=== PATIENT | male | born 1945 | race Caucasian/White ===

== ENCOUNTER 2017-07-26 08:13 | Emergency (ER) | payer BC ==
[2017-07-26 08:30] VITALS: BP 137/83
--- NOTE | 2017-07-26 09:10 | RAD ---
HISTORY: Fall, right-sided pain COMPARISONS: None VIEWS: 6, Frontal view of the chest with frontal and oblique views of the right hemithorax. FINDINGS: There is no displaced rib fracture or pneumothorax. The visualized lungs are clear. There is a bone island of the right fourth rib. IMPRESSION: NO DISPLACED RIB FRACTURE OR PNEUMOTHORAX.
--- NOTE | 2017-07-26 09:35 | UC ---
Truncal Trauma HPI - HPI Summary HPI Summary: 72 yo WM c/o right lower irb pains s/p fall onto edge of bathtub yesterday and now hurts to lay down. Denies dizziness or SOB - History Of Current Complaint Chief Complaint: UCBackPain Stated Complaint: BACK INJURY Time Seen by Provider: 07/26/17 08:51 Onset/Duration: Sudden Onset Severity Currently: Moderate Pain Intensity: 7 Mechanism Of Injury: Blunt Trauma Aggravating Factor(s): Movement, Deep Breathing Alleviating factor(s): Nothing - Allergies/Home Medications Allergies/Adverse Reactions: Allergies Allergy/AdvReac Type Severity Reaction Status Date / Time No Known Allergies Allergy Verified 07/26/17 08:23 Home Medications: Home Medications Aspirin [Aspirin Childrens 81 MG] 81 mg PO DAILY 07/26/17 [History Confirmed 09/07] Atorvastatin* [Lipitor 10 MG*] 10 mg PO DAILY 07/26/17 [History Confirmed ] LORazepam TAB(*) [Ativan 1 MG TAB (*)] 0.1 mg PO DAILY 07/26/17 [History Confirmed 07/26/17] PMH/Surg Hx/FS Hx/Imm Hx Previously Healthy: Yes - Surgical History Surgical History: Yes Surgery Procedure, Year, and Place: t/a - Social History Alcohol Use: Daily Substance Use Type: None Smoking Status (MU): Never Smoked Tobacco Review of Systems Constitutional: Negative Skin: Negative Eyes: Negative ENT: Negative Respiratory: Negative Cardiovascular: Negative Gastrointestinal: Negative Genitourinary: Negative Motor: Negative Neurovascular: Negative Musculoskeletal: Negative, Other: - right lower rib and intercostal pains Neurological: Negative Psychological: Negative All Other Systems Reviewed And Are Negative: Yes Physical Exam Triage Information Reviewed: Yes Vital Signs: Initial Vital Signs Temp 36.6 C 07/26/17 08:25 Pulse 93 07/26/17 08:25 Resp 17 07/26/17 08:25 BP 137/83 07/26/17 08:25 Pulse Ox 98 07/26/17 08:25 Vital Signs Reviewed: Yes Eye Exam: Normal ENT Exam: Normal Dental Exam: Normal Neck exam: Normal Neck: Positive: 1 Respiratory Exam: Normal Cardiovascular Exam: Normal Abdominal Exam: Normal Musculoskeletal: Positive: Other: - TTP over right lower rib region ribs8-11 Neurological Exam: Normal Psychological Exam: Normal Skin Exam: Normal Truncal Trauma Course/Dx - Course Course Of Treatment: XR neg for displaced rib fx or PTX - Differential Dx/Diagnosis Provider Diagnoses: RIb and chestwall contusion. mildly elevated BP in acute pain Discharge - Sign-Out/Discharge Documenting (check all that apply): Discharge - Discharge Plan Condition: Stable Disposition: HOME Prescriptions: Naproxen 500 mg PO BID 15 Days #30 tablet oxyCODONE/Acetamin 5/325 MG* [Percocet 5/325 TAB*] 1 tab PO Q6H PRN 5 Days #20 tab MDD 4 PRN Reason: Pain Patient Education Materials: Rib Contusion (ED) Referrals: Shirley Euceda MD [Primary Care Provider] - Additional Instructions: manual splinting with cough and take mediation as directed for pain - Billing Disposition and Condition Condition: STABLE Disposition: HOME
== END 2017-07-26 09:30 | disposition home or self-care (01) ==
LOC: UCEAST 08:13
DX: S20.211A Contusion of right front wall of thorax, initial encounter (principal); W18.09XA Striking against other object with subsequent fall, initial encounter; Y93.9 Activity, unspecified; Y92.002 Bathroom of unspecified non-institutional (private) residence as the place of occurrence of the external cause; R03.0 Elevated blood-pressure reading, without diagnosis of hypertension; Z79.82 Long term (current) use of aspirin
CPT/HCPCS: 99202; G0463

== ENCOUNTER 2019-01-31 04:01 | Emergency (ER) | payer BC ==
--- OUTSIDE RECORDS SUMMARY | 2019-01-31 04:13 | XMS REPORT | Summary of Care ---
:1945 Author Organization [facility] Address [address] [place] [address] Care Team Providers Name Role Phone Shirley Euceda Primary Care Provider Reason for Referral Refer to Department Only (Routine) Status Reason Specialty Diagnoses / Referred By Referred To Procedures Contact Contact Authorized Dental Diagnoses TMJ disease Kena Baker, RAMIREZ [address] [place] [address] Reason for Visit Reason Comments Jaw Pain jaw not closing correctly, hurts to open Jaw Noises grinding on right side Flu Vaccine Encounter Details Date Type Department Care Team Description 01/21/2019 Office Visit [place] Kena Arambula Back strain, initial encounter (Primary Dx); 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 UNITS Oral Tab Triamcinolone 1 Appl by Apply 15 g 1 08/30/2017 Active Acetonide 0.5 % Apply externally route externally Cream TWICE DAILY. Apply twice/ day trazodone (DESYREL) 50 TAKE 1/2 TO 1 & 90 Tab 1 04/01/2018 Active MG Oral 1/2 TABLETS BY TabIndications: MOUTH EVERY Chronic insomnia BEDTIME atorvastatin (LIPITOR) Take 1 Tab by 90 Tab 3 10/15/2018 Active 10 MG Oral mouth DAILY. TabIndications: Lipid disorder ketoconazole (NIZORAL) 1 Appl by Topical 120 mL 0 10/23/2018 Active 2 % Apply externally route ONE TIME. ShampooIndications: Over skin at night Tinea corporis and wash off in am Lidocaine-Menthol 4-5 1 Patch by Apply 30 Patch 0 01/21/2019 Active % Apply externally externally route PatchIndications: Back DAILY NEEDED strain, initial (for back pain). encounter documented as of this encounter (statuses as of 01/21/2019) Active Problems Problem Noted Date Platelet disorder 10/15/2018 Primary hyperparathyroidism 03/13/2017 Overview: dxa 02/06 - Mild osteopenia Urine calcium - 365 Hypercalcemia 01/17/2017 Overview: Elevated intact PTH Lipid disorder 05/17/2016 Overview: framingham risk - 30.9 ( 05/09) Chronic insomnia 04/26/2010 Overview: Ativan and ambien at bedtime as needed [id number] Personal history of colonic polyps 10/09/2007 Overview: Last colonoscopy, 05/12/2004, 2 adenomas, benign. Next recommended 3(three) years. documented as of this encounter (statuses as of 01/21/2019) Resolved Problems Problem Noted Date Resolved Date Syncope and collapse 10/09/2007 11/09/2009 Overview: Whenever patient feels pain. Morbid obesity 10/09/2007 10/09/2007 Routine general medical examination at a health care facility 09/24/2006 documented as of this encounter (statuses as of 01/21/2019) Immunizations Name Administration Dates Next Due Influenza Vaccine 65 Yrs + 01/21/2019 Influenza Vaccine High Dose 03/01/2018, 01/17/2017, 06/09/2015 Pneumococcal Conjugate(13 Valent) 03/01/2018 documented as of this encounter Social History Tobacco Use Types Packs/Day Years Used Date Never Smoker Smokeless Tobacco: Never Used Alcohol Use Drinks/Week oz/Week Comments Yes 25 Standard drinks or equivalent 25.0 Sex Assigned at Date Recorded Not on file Job Start Date Occupation Industry Not on file Not on file Not on file Travel History Travel Start Travel End No recent travel history available. documented as of this encounter Last Filed Vital Signs Vital Sign Reading Time Taken Comments Blood Pressure 140/72 01/21/2019 4:39 PM EDT Pulse 70 01/21/2019 4:39 PM EDT Temperature 36.7 01/21/2019 4:39 PM EDT C (98 F) Respiratory Rate - - Oxygen Saturation 98% 01/21/2019 4:39 PM EDT Inhaled Oxygen Concentration - - Weight 96.2 kg (212 lb) 01/21/2019 4:39 PM EDT Height 185.4 cm (6' 1") 01/21/2019 4:39 PM EDT Body Mass Index 27.97 01/21/2019 4:39 PM EDT documented in this encounter Patient Instructions Patient InstructionsKena Baker NP - 01/21/2019 4:20 PM EDT For your Back - ? You can take ibuprofen 600 mg every 8 hours for the pain - please take this medication with food. ? Biofreeze or Icy/Hot to the area as needed ? Lidocaine patch to painful area - use for 12 hours on, then off for 12 hours. ? Practice good body ergonomics while doing house work, sitting at your desk, heavy lifting, etc ? Heating pads If conservative treatment does not work after 4 weeks, return to be seen again, I will put in referral for you to do physical therapy. For your Jaw - -Schedule xray to check for subluxation or dislocation -Make an appointment with dentist -Soft foods for now -Tylenol and motrin for the pain -Avoid exaggerated jaw movements, such as yawning -Avoid chewing gum. -Use a bite guard at night. You may feel under the weather after the influenza vaccine - you can take tylenol and motrin over the counter for this. This is an expected immune response to the vaccine. . Lower Back Exercises WHAT YOU NEED TO KNOW: Lower back exercises help heal and strengthen your back muscles to prevent another injury. Ask your healthcare provider if you need to see a physical therapist for more advanced exercises. DISCHARGE INSTRUCTIONS: Return to the emergency department if: You have severe pain that prevents you from moving. Contact your healthcare provider if: Your pain becomes worse. You have new pain. You have questions or concerns about your condition or care. Do lower back exercises safely: Do the exercises on a mat or firm surface (not on a bed) to support your spine and prevent lowback pain. Move slowly and smoothly. Avoid fast or jerky motions. Breathe normally. Do not hold your breath. Stop if you feel pain. It is normal to feel some discomfort at first. Regular exercise will help decrease your discomfort over time. Lower back exercises: Your healthcare provider may recommend that you do back exercises 10 to 30 minutes each day. He may also recommend that you do exercises 1 to 3 times each day. Ask your healthcare provider which exercises are best for you and how often to do them. Ankle pumps: Lie on your back. Move your foot up (with your toes pointing toward your head). Then, move your foot down (with your toes pointing away from you). Repeat this exercise 10 times on each side. Heel slides: Lie on your back. Slowly bend one leg and then straighten it. Next, bend the other leg and then straighten it. Repeat 10 times on each side. Pelvic tilt: Lie on your back with your knees bent and feet flat on the floor. Place your armsin a relaxed position beside your body. Tighten the muscles of your abdomen and flatten your back against the floor. Hold for 5 seconds. Repeat 5 times. Back stretch: Lie on your back with your hands behind your head. Bend your knees and turn the lower half of your body to one side. Hold this position for 10 seconds. Repeat 3 times on each side. Straight leg raises: Lie on your back with one leg straight. Bend the other knee. Tighten yourabdomen and then slowly lift the straight leg up about 6 to 12 inches off the floor. Hold for 1 to 5seconds. Lower your leg slowly. Repeat 10 times on each leg. Kchu-ur-vjvuu: Lie on your back with your knees bent and feet flat on the floor. Pull one of your knees toward your chest and hold it there for 5 seconds. Return your leg to the starting position. Lift the other knee toward your chest and hold for 5 seconds. Do this 5 times on each side. Cat and camel: Place your hands and knees on the floor. Arch your back upward toward the ceiling and lower your head. Round out your spine as much as you can. Hold for 5 seconds. Lift your head upward and push your chest downward toward the floor. Hold for 5 seconds. Do 3 sets or as directed. Wall squats: Stand with your back against a wall. Tighten the muscles of your abdomen. Slowly lower your body until your knees are bent at a 45 degree angle. Hold this position for 5 seconds. Slowly move back up to a standing position. Repeat 10 times. Curl up: Lie on your back with your knees bent and feet flat on the floor. Place your hands, palms down, underneath the curve in your lower back. Next, with your elbows on the floor, lift your shoulders and chest 2 to 3 inches. Keep your head in line with your shoulders. Hold this position for 5seconds. When you can do this exercise without pain for 10 to 15 seconds, you may add a rotation. While your shoulders and chest are lifted off the ground, turn slightly to the left and hold. Repeat onthe other side. Bird dog: Place your hands and knees on the floor. Keep your wrists directly below your shoulders and your knees directly below your hips. Pull your belly button in toward your spine. Do not flatten or arch your back. Tighten your abdominal muscles. Raise one arm straight out so that it is aligned with your head. Next, raise the leg opposite your arm. Hold this position for 15 seconds. Lower your arm and leg slowly and change sides. Do 5 sets. 2016 [employer]. Information is for End User's use only and may not be sold, redistributed or otherwise used for commercial purposes. All illustrations and images included in CareNotes are the copyrighted property of [employer]. or [employer]. The above information is an medicaid collection specialist only. It is not intended as medical advice for individual conditions or treatments. Talk to your doctor, nurse or pharmacist before following any medical regimen to see if it is safe and effective for you. documented in this encounter Progress Notes Kena Baker NP - 01/21/2019 4:20 PM EDT PATIENT: Dinesh Olson : 1945 DATE OF SERVICE: 01/21/2019 CHIEF COMPLAINT: Chief Complaint Patient presents with Jaw Pain jaw not closing correctly, hurts to open Jaw Noises grinding on right side Flu Vaccine Subjective HISTORY OF PRESENT ILLNESS: Dinesh Olson is a 73-y.o. male. HPI Back pain - inflammation feeling on lower right back for a few days. Now left flank pain since 2-3 days. He has been doing a lot of travel in his car, traveling to [place] and back. A lot on his mind he is tense. Pain is dull, there all the time, worse when doing certain movements, worse when getting up the AM. Worse when bending, side to side. No numbness or tingling, no radiation, No problems with urinating, no hematuria, no abd pain. +Loose stools. Jaw - 2-3 weeks, feels like teeth are tense when waking up in the am, when opening mouth he gets a noise in the right side of the jaw, painful to open wide. Now, since last week or so, when jaw closesteeth on right side feel like they are closing into the wrong spot, not able to put top and bottom teeth together completely. Feels like maybe dislocated. No numbness/tingling, no radiation. Past Medical History: Diagnosis Date Hemorrhoid Personal history of colonic polyps 2010 04 tubular adenoma ---next 2016 Syncope and collapse 10/09/2007 Whenever patient feels pain. Family History Problem Relation Age of Onset Heart Father CAD, CHF Cancer Father Leukemia Heart Mother Pacemaker Breast Cancer Mother Colon Cancer Paternal Grandmother Heart Paternal Grandfather Diabetes Sister Alcohol/Drug Sister Obesity Sister Current Outpatient Medications Medication Sig atorvastatin (LIPITOR) 10 MG Oral Tab Take 1 Tab by mouth DAILY. ketoconazole (NIZORAL) 2 % Apply externally Shampoo 1 Appl by Topical route ONE TIME. Over skin at night and wash off in am Lidocaine-Menthol 4-5 % Apply externally Patch 1 Patch by Apply externally route DAILY NEEDED (for back pain). trazodone (DESYREL) 50 MG Oral Tab TAKE 1/2 TO 1 & 1/2 TABLETS BY MOUTH EVERY BEDTIME Triamcinolone Acetonide 0.5 % Apply externally Cream 1 Appl by Apply externally route TWICE DAILY. Apply twice/ day Vitamin D, Cholecalciferol, 1000 UNITS Oral Tab Take by mouth DAILY. No current facility-administered medications for this visit. No Known Allergies Social History Socioeconomic History Marital status: Spouse name: Not on file Number of children: Not on file Years of education: Not on file Highest education level: Not on file Occupational History Not on file Social Needs Financial resource strain: Not on file Food insecurity: Worry: Not on file Inability: Not on file Transportation needs: Medical: Not on file Non-medical: Not on file Tobacco Use Smoking status: Never Smoker Smokeless tobacco: Never Used Substance and Sexual Activity Alcohol use: Yes Alcohol/week: 25.0 standard drinks Types: 25 Standard drinks or equivalent per week Drug use: No Sexual activity: Yes Partners: Female Lifestyle Physical activity: Days per week: Not on file Minutes per session: Not on file Stress: Not on file Relationships Social connections: Talks on phone: Not on file Gets together: Not on file Attends orthodox service: Not on file Active member of club or organization: Not on file Attends meetings of clubs or organizations: Not on file Relationship status: Not on file Intimate partner violence: Fear of current or ex partner: Not on file Emotionally abused: Not on file Physically abused: Not on file Forced sexual activity: Not on file Other Topics Concern Back Care Not Asked Bike Helmet Not Asked Blood Transfusions No Caffeine Concern Not Asked Exercise Yes Comment: biking/garden work. some swimming. Hobby Hazards No International Travel Not Asked Service Not Asked Occupational Exposure Not Asked Seat Belt Not Asked Self-Exams Not Asked Sleep Concern Not Asked Special Diet Not Asked Stress Concern Not Asked Weight Concern Not Asked Social History Narrative . 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 Routine exercise: gardening/biking---no sig in winter. Pets: 2 birds---parakeets, 1 guniea pig. REVIEW OF SYSTEMS: Review of Systems Constitutional: Negative for chills, fever and malaise/fatigue. HENT: Negative for congestion, ear pain, sinus pain and sore throat. Right side jaw pain and clicking. + PND Respiratory: Negative for cough and shortness of breath. Cardiovascular: Negative for chest pain and palpitations. Gastrointestinal: Positive for diarrhea (loose stool). Negative for abdominal pain, constipation, nausea and vomiting. Genitourinary: Positive for flank pain (left). Negative for dysuria, frequency, hematuria and urgency. Musculoskeletal: Positive for back pain (left and right). Negative for neck pain. Neurological: Negative for tingling, sensory change and weakness. Objective PHYSICAL EXAM: VITALS: BP 140/72 (BP Location: Left arm, Patient Position: Sitting) | Pulse 70 | Temp 98 F (36.7 C) | Ht 6' 1" (1.854 m) | Wt 212 lb (96.2 kg) | SpO2 98% | BMI 27.97 kg/m Body massindex is 27.97 kg/m. Physical Exam Vitals signs and nursing note reviewed. Constitutional: General: He is not in acute distress. Appearance: Normal appearance. HENT: Head: Normocephalic and atraumatic. Jaw: Pain on movement (no clicking or crepitus on jaw movement) present. No trismus, tenderness, swelling or malocclusion. Right Ear: Hearing, tympanic membrane, ear canal and external ear normal. Left Ear: Hearing, tympanic membrane, ear canal and external ear normal. Mouth/Throat: Lips: [place]. Mouth: Mucous membranes are moist. Pharynx: Oropharynx is clear. Uvula midline. Tonsils: Swellin+ on the right. 1+ on the left. Neck: Musculoskeletal: Normal range of motion and neck supple. No spinous process tenderness or muscular tenderness. Vascular: No carotid bruit. Cardiovascular: Rate and Rhythm: Normal rate and regular rhythm. Heart sounds: Normal heart sounds. No murmur. No friction rub. No gallop. Pulmonary: Effort: Pulmonary effort is normal. No respiratory distress. Breath sounds: Normal breath sounds and air entry. Musculoskeletal: Right hip: Normal. Left hip: Normal. Cervical back: He exhibits normal range of motion, no tenderness, no bony tenderness, no pain andno spasm. Thoracic back: He exhibits normal range of motion, no tenderness, no bony tenderness, no pain andno spasm. Lumbar back: He exhibits normal range of motion, no tenderness, no bony tenderness, no pain and no spasm. Neurological: Mental Status: He is alert. Sensory: Sensation is intact. Motor: No weakness. Psychiatric: Behavior: Behavior is cooperative. ASSESSMENT / IMPRESSION: ICD-9-CM ICD-10-CM 1. 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 Flu vaccine need V04.81 Z23 ADMINISTRATION VACCINE SINGLE Plan 1. Back strain, initial encounter Conservative treatment to start: For your Back - ? You can take ibuprofen 600 mg every 8 hours for the pain - please take this medication with food. ? Biofreeze or Icy/Hot to the area as needed ? Lidocaine patch to painful area - use for 12 hours on, then off for 12 hours. ? Practice good body ergonomics while doing house work, sitting at your desk, heavy lifting, etc ? Heating pads If conservative treatment does not work after 4 weeks, return to be seen again, I will put in referral for you to do physical therapy. - Lidocaine-Menthol 4-5 % Apply externally Patch; 1 Patch by Apply externally route DAILY NEEDED (for back pain). Dispense: 30 Patch; Refill: 0 2. TMJ disease For your Jaw - -Schedule xray to check for subluxation or dislocation -Make an appointment with dentist -Soft foods for now -Tylenol and motrin for the pain -Avoid exaggerated jaw movements, such as yawning -Avoid chewing gum. -Use a bite guard at night. - XR MANDIBLE MIN 4 VIEWS (STANDARD); Future - REFER TO DENTAL; Future 3. Flu vaccine need - ADMINISTRATION VACCINE SINGLE Author: Kena Baker NP 01/21/2019 19:03 documented in this encounter Plan of Treatment Date Type Specialty Care Team Description 02/28/2019 Office Visit [place] [address] [place] [address] [phone] Name Type Priority Associated Diagnoses Order Schedule XR MANDIBLE MIN 4 VIEWS Imaging Routine TMJ disease Expected: (STANDARD) 01/21/2019, Expires: 01/21/2020 ADMINISTRATION VACCINE Procedures Routine Flu vaccine need Ordered: 2018 SINGLE Name Type Priority Associated Diagnoses Order Schedule REFER TO DENTAL Referral Routine TMJ disease Expected: 01/21/2019, Expires: 01/22/2020 Health Maintenance Due Date Last Done Comments ZOSTER IMMUNIZATION SERIES 1997 (1 of 2) INFLUENZA VACCINE (#1) 2018 03/01/2018, 01/17/2017, 06/09/2015 PNEUMOCOCCAL 65+YRS (2 of 2 03/01/2019 03/01/2018 - PPSV23) DEPRESSION SCREENING 10/16/2019 10/15/2018 FALL RISK ASSESSMENT 10/16/2019 10/15/2018, 10/15/2018 COLONOSCOPY SCREENING 06/28/2021 06/28/2016, 06/28/2010, 06/28/2010, Additional history exists LIPID DISORDER SCREENING 10/16/2023 10/15/2018, 02/25/2018, 08/15/2017, Additional history exists HEPATITIS C SCREENING Completed 12/31/2015 HPV IMMUNIZATION SERIES Aged Out No longer eligible based on patient's age to complete this topic MENINGOCOCCAL VACCINE IMM Aged Out No longer eligible based on patient's age to complete this topic documented as of this encounter Results Not on filedocumented in this encounter Visit Diagnoses Diagnosis Back strain, initial encounter - Primary TMJ disease Temporomandibular joint disorders, unspecified Flu vaccine need Need for prophylactic vaccination and inoculation against influenza documented in this encounter Guarantor Name Account Type Relation to Date of Phone Billing Patient Address Dinesh Olson Personal/Family 1945 [address] (Home) [phone] [place], [place] (Work) [id number] documented as of this encounter Advance Directives Type Date Recorded 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
[2019-01-31] MEDS ORDERED: Oxymetazoline 0.05% NASAL SPR* 15 ML BTL BOTH NARES ONE (05:01)
--- NOTE | 2019-01-31 05:04 | ED ---
Throat Pain/Nasal Congestion - HPI Summary HPI Summary: Pt is a 73 y/o M presenting to the ED for a chief complaint of epistaxis. Pt is actively bleeding from the left naris. Pt reports that he has been bleeding from the left naris since 03:30 on 01/31/19. Pt reports that epistaxis has occurred every morning for the last 3 days and occasionally in the evening. Pt was previously able to stop the bleeding with pressure. Pt has a cough with bloody sputum. Pt denies fever. Pt denies epistaxis in the past. Pt denies taking blood thinners. Pt denies a PMHx of HTN or DM. Pt denies any PSHx. Pt admits a FHMx of cardiac problems. - History of Current Complaint Chief Complaint: EDEpistaxis Time Seen by Provider: 01/31/19 04:54 Hx Obtained From: Patient Onset/Duration: Sudden Onset, Lasting Days, Still Present Severity: Moderate Associated Signs And Symptoms: Positive: Negative Cough: Sputum Appears - Bloody - Allergies/Home Medications Allergies/Adverse Reactions: Allergies Allergy/AdvReac Type Severity Reaction Status Date / Time No Known Allergies Allergy Verified 01/31/19 04:06 PMH/Surg Hx/FS Hx/Imm Hx Previously Healthy: Yes Endocrine/Hematology History: Denies: Hx Diabetes Cardiovascular History: Denies: Hx Hypertension Sensory History: Denies: Hx Legally Blind, Hx Deafness Opthamlomology History: Denies: Hx Legally Blind EENT History: Denies: Hx Deafness - Surgical History Surgical History: None Surgery Procedure, Year, and Place: t/a Infectious Disease History: No Infectious Disease History: Reports: Traveled Outside the [place] in Last 30 Days - Family History Known Family History: Positive: Cardiac Disease - Social History Alcohol Use: Daily Hx Substance Use: No Substance Use Type: Reports: None Hx Tobacco Use: No Smoking Status (MU): Never Smoked Tobacco Review of Systems Negative: Fever Positive: Epistaxis - Left naris Positive: Cough - With bloody sputum All Other Systems Reviewed And Are Negative: Yes Physical Exam - Summary Physical Exam Summary: Constitutional: Well-developed, Well-nourished, Alert. (-) Distressed Skin: Warm, Dry HENT: Normocephalic; Atraumatic. Bright red blood from left naris. Eyes: Conjunctiva normal Neck: Musculoskeletal ROM normal neck. (-) JVD, (-) Stridor, (-) Nuchal rigidity Cardio: Rhythm regular, rate normal, Heart sounds normal; Intact distal pulses; Radial pulses are 2+ and symmetric. (-) Murmur Pulmonary/Chest wall: Effort normal. (-) Respiratory distress, (-) Wheezes, (-) Rales Abd: Soft, (-) tenderness, (-) Distension, (-) Guarding, (-) Rebound Musculoskeletal: (-) Edema Lymph: (-) Cervical adenopathy Neuro: Alert, Oriented x3 Psych: Mood and affect Normal Triage Information Reviewed: Yes Vital Signs On Initial Exam: Initial Vitals Temp Pulse Resp BP Pulse Ox 97.6 F 82 16 167/100 96 01/31/19 04:03 01/31/19 04:03 01/31/19 04:03 01/31/19 04:03 01/31/19 04:03 Vital Signs Reviewed: Yes Procedures - Sedation Patient Received Moderate/Deep Sedation with Procedure: No Diagnostics - Vital Signs Vital Signs Temp Pulse Resp BP Pulse Ox 01/31/19 04:03 97.6 F 82 16 167/100 96 - Laboratory Result Diagrams: 01/31/19 05:31 Lab Statement: Any lab studies that have been ordered have been reviewed, and results considered in the medical decision making process. Re-Evaluation - Re-Evaluation 1st re-eval Re-Evaluation Time: 05:51 Change: Improved Comment: At 05:51, rhino rocket placed successfully. 2nd re-eval Re-Evaluation Time: 06:17 Change: Improved Comment: At 06:17, pt is improved. Pt will try drinking water before he goes. EENT Course/Dx - Course Course Of Treatment: 73 y/o male w L sided epistaxis intermittent for 3 days. - PE w brisk bleeding from L nare, tried afrin and pressure. CBC stable, INR normal. Placed rhino rocket in L nare, given augmentin. Will call ENT today for f/u. Return for fevers, worsening pain, continued bleeding. - Diagnoses Provider Diagnoses: Epistaxis Discharge ED - Sign-Out/Discharge Documenting (check all that apply): Patient Departure - Discharge - Discharge Plan Condition: Stable Disposition: HOME Prescriptions: Amoxicillin/Clavulanate TAB* [Augmentin TAB 875*] 875 mg PO BID 3 Days #6 tab Patient Education Materials: Nosebleed (ED) Referrals: Shirley Euceda MD [Primary Care Provider] - Additional Instructions: You were seen in the emergency department for a nose bleed. If any studies were not completed at the time of discharge you will be called with the relevant results. Please follow up with your primary care doctor in next 2-3 days and return to emergency department for worsening pain, passing out, fevers, or concerning symptoms. It was a pleasure taking care of you today. Follow up with ENT. Given them a call today as you need to have your packing removed in 2-3 days. - Billing Disposition and Condition Condition: STABLE Disposition: Home - Attestation Statements Document Initiated by [place]: Yes Documenting Scribe: Hayley Farris Provider For Whom Kenya is Documenting (Include Credential): Jony Valdes MD Scribe Attestation: Hayley Deleon scribed for Jony Valdes MD on 01/31/19 at 0637. Scribe Documentation Reviewed: Yes Provider Attestation: The documentation as recorded by the Hayley emerson accurately reflects the service I personally performed and the decisions made by , Jony Valdes MD Status of Scribe Document: Viewed
[2019-01-31 05:42] LABS: Hematocrit 48 % (42-52); Hemoglobin 16.7 g/dL (14.0-18.0); Mean Corpuscular HGB Conc 35 g/dL (31-36); Mean Corpuscular Hemoglobin 31 pg (27-31); Mean Corpuscular Volume 91 fL (80-94); Mean Platelet Volume 9.9 fL (7.4-10.4); Platelet Count 154 10^3/uL (150-450); Red Blood Count 5.32 10^6 /uL (4.18-5.48); Red Cell Distribution Width 13 % (10-15); White Blood Count 4.4 10^3/uL (3.5-10.8)
[2019-01-31] MEDS ORDERED: Amoxicillin/Clavulanate TAB* 875 MG PO ONE (05:44)
[2019-01-31 05:49] LABS: INR 0.95 (0.82-1.09)
[2019-01-31 06:52] VITALS: BP 155/100
== END 2019-01-31 06:35 | disposition home or self-care (01) ==
LOC: ED 04:01
DX: R04.0 Epistaxis (principal)
CPT/HCPCS: 36415; 85027; 85610; 99282; A9270-GY

== ENCOUNTER 2019-02-01 10:05 | Emergency (ER) | payer BC ==
[2019-02-01 10:16] VITALS: BP 142/84
--- NOTE | 2019-02-01 10:33 | ED ---
Throat Pain/Nasal Congestion - HPI Summary HPI Summary: Patient is a 73 y/o M presenting to [facility] for rhino-rocket removal and examination of his left nare. He states that he came to [facility] 01/31/19 around 0300 due to uncontrolled epistaxis of his left nare. He states that they were unable to cauterize the bleeding source due to the copious amount of blood. Provider placed rhino-rocket. He states that yesterday he had an exacerbation of his allergies and nose irritation. While coughing, he states that the rhino- rocket came out. He had no bleeding and placed the rhino-rocket back in. Patient presents to have the rhino-rocket removed and to have his nare examined for possible cauterization. Patient denies pain. He notes that he had multiple epistaxis episodes last week. Home medications and allergies are reviewed. - History of Current Complaint Chief Complaint: EDGeneral Time Seen by Provider: 02/01/19 10:23 Hx Obtained From: Patient Onset/Duration: Resolved Severity: Mild Associated Signs And Symptoms: Positive: Negative Cough: Other: - cough w/ allergies - Allergies/Home Medications Allergies/Adverse Reactions: Allergies Allergy/AdvReac Type Severity Reaction Status Date / Time No Known Allergies Allergy Verified 01/31/19 04:06 PMH/Surg Hx/FS Hx/Imm Hx Endocrine/Hematology History: Denies: Hx Diabetes Cardiovascular History: Denies: Hx Hypertension Sensory History: Denies: Hx Legally Blind, Hx Deafness Opthamlomology History: Denies: Hx Legally Blind - Surgical History Surgery Procedure, Year, and Place: t/a Infectious Disease History: No Infectious Disease History: Denies: Traveled Outside the US in Last 30 Days - Family History Known Family History: Positive: Cardiac Disease - Social History Alcohol Use: Daily Hx Substance Use: No Substance Use Type: Reports: None Hx Tobacco Use: No Smoking Status (MU): Never Smoked Tobacco Review of Systems All Other Systems Reviewed And Are Negative: Yes Physical Exam - Summary Physical Exam Summary: GENERAL NORMAL EXAM: VITAL SIGNS: Reviewed. GENERAL: Patient is a well-developed and nourished male who is lying comfortable in the stretcher. Patient is not in any acute respiratory distress. HEAD AND FACE: No signs of trauma. No ecchymosis, hematomas or skull depressions. No sinus tenderness. Rhino-rocket in left nostril that is intermediate out, no active bleeding. EYES: PERRLA, EOMI x 2, No injected conjunctiva, no nystagmus. EARS: Hearing grossly intact. Ear canals and tympanic membranes are within normal limits. MOUTH: Oropharynx within normal limits. NECK: Supple, trachea is midline, no adenopathy, no JVD, no carotid bruit, no c- spine tenderness, neck with full ROM. CHEST: Symmetric, no tenderness at palpation. LUNGS: Clear to auscultation bilaterally. No wheezing or crackles. CVS: Regular rate and rhythm, S1 and S2 present, no murmurs or gallops appreciated. ABDOMEN: Soft, non-tender. No signs of distention. No rebound, no guarding, and no masses palpated. Bowel sounds are normal. EXTREMITIES: FROM in all major joints, no edema, no cyanosis or clubbing. NEURO: Alert and oriented x 3. No acute neurological deficits. Speech is normal and follows commands. SKIN: Dry and warm. Triage Information Reviewed: Yes Vital Signs On Initial Exam: Initial Vitals Temp Pulse Resp BP Pulse Ox 97.3 F 75 16 142/84 96 02/01/19 10:14 02/01/19 10:14 02/01/19 10:14 02/01/19 10:14 02/01/19 10:14 Vital Signs Reviewed: Yes Procedures - Sedation Patient Received Moderate/Deep Sedation with Procedure: No Diagnostics - Vital Signs Vital Signs Temp Pulse Resp BP Pulse Ox 02/01/19 10:14 97.3 F 75 16 142/84 96 - Laboratory Lab Statement: Any lab studies that have been ordered have been reviewed, and results considered in the medical decision making process. EENT Course/Dx - Course Assessment/Plan: Patient is a 73-year-old male with a request to remove the Rhino Rocket from the left nostril. The Rhino Rocket is half way off. I deflated and removed the Rhino Rocket. The patient was not actively bleeding. The patient is feeling better. The patient was observed for a while in the ED and did not bleed. The patient will be discharged home with follow-up with ENT. I discussed all the findings and test results with the patient. Patient was instructed to return to the emergency room immediately if any of the symptoms return worsens. Plan of care was discussed with the patient and understands and agrees. All questions were answered at patient satisfaction. There were no further complaints or concerns. Lung exam before discharge: CTA B/ L. Good air exchange. No wheezing or crackles heard. CVS: S1 and S2 present. No murmurs appreciated. Patient is alert and oriented x 3. Patient is hemodynamically stable. Patient will be discharged home with follow up ENT in the next 2-3 days - Diagnoses Provider Diagnoses: Epistaxis Discharge ED - Sign-Out/Discharge Documenting (check all that apply): Patient Departure - discharge - Discharge Plan Condition: Stable Disposition: HOME Patient Education Materials: Nosebleed (ED) Referrals: Shirley Euceda MD [Primary Care Provider] - 3 Days Sourav Adler MD [Medical Doctor] - 3 Days Additional Instructions: PLEASE RETURN TO ED FOR ANY NEW OR WORSENING SYMPTOMS. PLEASE FOLLOW UP WITH ENT DOCTOR WITHIN 2-3 DAYS. - Billing Disposition and Condition Condition: STABLE Disposition: Home - Attestation Statements Document Initiated by [place]: Yes Documenting Scribe: MARGARITO SAUNDERS Provider For Whom [place] is Documenting (Include Credential): BASILIA GILMAN MD Scribe Attestation: MARGARITO Deleon scribed for BASILIA GILMAN MD on 02/01/19 at 2133. Scribe Documentation Reviewed: Yes Provider Attestation: The documentation as recorded by the MARGARITO emerson accurately reflects the service I personally performed and the decisions made by me, BASILIA GILMAN MD Status of Scribe Document: Viewed
--- OUTSIDE RECORDS SUMMARY | 2019-02-01 10:56 | XMS REPORT | Summary of Care ---
:1945 Author Organization [facility] Address [address] [place] [address] Care Team Providers Name Role Phone Shirley Euceda Primary Care Provider Reason for Visit Reason Comments [place] [facility] [place] at 7am, severe epitaxis during night, started having epitaxis on Sunday afternoon, 2 on sunday, 1 on sunday, 1 . Encounter Details Date Type Department Care Team Description 01/31/2019 Office Visit [place] Kemar Calixto MD [facility] [address] epistaxis (Primary Dx) [address] [place] [address] [place] [address] [phone] Allergies No Known Allergiesdocumented as of this encounter (statuses as of 01/31/2019) Medications Medication Sig Dispensed Refills Start Date End Date Status Vitamin D, Take by mouth 0 Active Cholecalciferol, DAILY. 1000 UNITS Oral Tab Triamcinolone 1 Appl by Apply 15 g 1 08/30/2017 Active Acetonide 0.5 % externally Apply externally route TWICE Cream DAILY. Apply twice/ day trazodone TAKE 1/2 TO 1 & 90 Tab 1 04/01/2018 Active (DESYREL) 50 MG 1/2 TABLETS BY Oral MOUTH EVERY TabIndications: BEDTIME Chronic insomnia atorvastatin Take 1 Tab by 90 Tab 3 10/15/2018 Active (LIPITOR) 10 MG mouth DAILY. Oral TabIndications: Lipid disorder ketoconazole 1 Appl by 120 mL 0 10/23/2018 Active (NIZORAL) 2 % Topical route Apply externally ONE TIME. Over ShampooIndications skin at night : Tinea corporis and wash off in am Lidocaine-Menthol 1 Patch by 30 Patch 0 01/21/2019 Active 4-5 % Apply Apply externally externally PatchIndications: route DAILY Back strain, NEEDED (for initial encounter back pain). 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 Next recommended 3(three) years. documented as of this encounter (statuses as of 01/31/2019) Resolved Problems Problem Noted Date Resolved Date Syncope and collapse 10/09/2007 11/09/2009 Overview: Whenever patient feels pain. Morbid obesity 10/09/2007 10/09/2007 Routine general medical examination at a health care facility 09/24/2006 documented as of this encounter (statuses as of 01/31/2019) Immunizations Name Administration Dates Next Due Influenza [...] Sign Reading Time Taken Comments Blood Pressure 158/92 01/31/2019 10:25 AM EDT Pulse 74 01/31/2019 10:25 AM EDT Temperature - - Respiratory Rate 18 01/31/2019 10:25 AM EDT Oxygen Saturation 99% 01/31/2019 10:25 AM EDT Inhaled Oxygen Concentration - - Weight 96.7 kg (213 lb 1.6 oz) 01/31/2019 10:25 AM EDT Height 190.5 cm (6' 3") 01/31/2019 10:25 AM EDT Body Mass Index 26.64 01/31/2019 10:25 AM EDT documented in this encounter Patient Instructions Patient InstructionsKemar Davis MD - 01/31/2019 10:15 AM EDTReturn to clinic in 72 hours for removal of packing. Take antibiotics as prescribed. Return to urgent care if bleeding recurs and the packing is unable to control. documented in this encounter Progress Notes Kemar Davis MD - 01/31/2019 10:15 AM EDT PATIENT: Dinesh Olson : 1945 DATE OF SERVICE: 01/31/2019 CHIEF COMPLAINT: Chief Complaint Patient presents with [place] [facility] [place] discharged at 7am, severe epitaxis during night, started having epitaxis on Sundayafter, 2 on sunday, 1 on sunday, 1 . Subjective HISTORY OF PRESENT ILLNESS: Dinesh Olson is a 73-y.o. male. 73 y/o seen in ED this am with copious nosebleed requiring packing to stop the bleeding. Has had several recent smaller nosebleeds that he could stop at home. Presents with papers from [place] [facility] [place] showing the visit and prescribing 3 days of Augmentin. Recommended follow up in 48-72 hours to remove packing. Past Medical History: Diagnosis Date Hemorrhoid Personal history of colonic polyps 2010 1 tubular adenoma ---next 2016 Syncope and collapse [...] file Gets together: Not on file Attends latter day service: Not on file Active member of [...] Social History Narrative . 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 Routine exercise: gardening/biking---no sig in winter. Pets: 2 birds---parakeets, 1 guniea pig. REVIEW OF SYSTEMS: Review of Systems Constitutional: Negative for chills and fever. Cardiovascular: Negative for chest pain. Skin: Negative for rash. Neurological: Negative for dizziness and headaches. Endo/Heme/Allergies: Bruises/bleeds easily (typically not easy bruiding but has had recurrent nosebleeds.). Psychiatric/Behavioral: Negative for depression. Objective PHYSICAL EXAM: VITALS: BP (!) 158/92 (BP Location: Left arm, Patient Position: Sitting) | Pulse 74 | Resp 18 | Ht 6' 3" (1.905 m) | Wt 213 lb 1.6 oz (96.7 kg) | SpO2 99% | BMI 26.64 kg/m Body mass index is 26.64 kg/m. Physical Exam HENT: Head: Normocephalic and atraumatic. Nose: Comments: Fluid pressure Nasal packing in place with cateter in the left nostril anteriorly. No active bleeding noted but there is a small amount of clear/serous fluid collecting beneath the bulb--easily wiped with kleenex. Neurological: Mental Status: He is alert. ASSESSMENT / IMPRESSION: 1. Acute anterior epistaxis Plan 1. Acute anterior epistaxis It's too early to remove the packing now. Offered a visit tomorrow late in the morning but advised Sunday would be better to allow good clot formation and hemostatic control. Patient agreed and will follow-up with me on Sunday for packing removal and potential cauterization if source can be identified. Return precautions given. Author: Kemar Davis MD 01/31/2019 10:36 documented in this encounter Plan of Treatment Date Type Specialty Care Team Description 02/03/2019 Office Visit Family Practice Kemar Davis MD [address] [place] [address] 02/28/2019 Office Visit Internal Medicine Shirley Euceda MD [address] [place] [address] [phone] Health Maintenance Due Date Last Done Comments ZOSTER IMMUNIZATION SERIES 1997 (1 of 2) PNEUMOCOCCAL 65+YRS (2 of 2 03/01/2019 03/01/2018 - PPSV23) DEPRESSION SCREENING 10/16/2019 10/15/2018 FALL RISK ASSESSMENT 10/16/2019 10/15/2018, 10/15/2018 COLONOSCOPY SCREENING 06/28/2021 06/28/2016, 06/28/2010, 06/28/2010, Additional history exists LIPID DISORDER SCREENING 10/16/2023 10/15/2018, 02/25/2018, 08/15/2017, Additional history exists HEPATITIS C SCREENING Completed 12/31/2015 INFLUENZA VACCINE Completed 01/21/2019, 03/01/2018, 01/17/2017, Additional history exists HPV IMMUNIZATION SERIES Aged Out No longer eligible based on patient's age to complete this topic MENINGOCOCCAL VACCINE IMM Aged Out No longer eligible based on patient's age to complete this topic documented as of this encounter Results Not on filedocumented in this encounter Visit Diagnoses Diagnosis Acute anterior epistaxis - Primary documented in this encounter Guarantor Name Account Type Relation to Date of Phone Billing Patient Address Dinesh Olson Personal/Family 1945 [address] (Home) [phone] [place], [place] (Work) [id number] documented as of this encounter Advance Directives Type Date Recorded 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
== END 2019-02-01 11:00 | disposition home or self-care (01) ==
LOC: ED 10:05
DX: R04.0 Epistaxis (principal)
CPT/HCPCS: 99282

== ENCOUNTER 2019-02-21 06:30 | Emergency (ER) | payer BC ==
--- OUTSIDE RECORDS SUMMARY | 2019-02-21 06:36 | XMS REPORT | Continuity of Care Document ---
:1945 External Reference #:[id number] Author Name Serina Perry PA-C Address [address] [place] [address] Care Team Providers Name Role Phone Shirley Euceda M.D. 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 [phone] Medicine Problems Description No Information Available Social History Type Date Description Comments Sex Unknown Tobacco Use Start: Unknown Never Smoked Cigarettes Tobacco Use Start: Unknown Never Smoked Cigars Tobacco Use Start: Unknown Never Smoked A Pipe Smokeless Tobacco Never Used Smokeless Tobacco ETOH Use Currently occasionally consumes alcohol Allergies, Adverse Reactions, Alerts Description No Known Drug Allergies Medications Active Medications SIG Qnty Indications Ordering Provider Date Atorvastatin Calcium Take One Tablet Unknown 10mg By Mouth Every Tablets Day Trazodone HCL Take 1/2 To 1 Unknown 50mg 1/2 Tablets By Tablets Mouth Every Bedtime Immunizations Description No Information Available Vital Signs Date Vital Result Comment 02/07/2019 10:34am BP Systolic 176 mmHg BP Diastolic 87 mmHg Heart Rate 79 /min Weight 212.00 lb Weight 96.163 kg Height 75 inches 6'3" Height in cm's 190.5 cm BMI (Body Mass Index) 26.5 kg/m2 Results Description No Information Available Procedures Description No Information Available Medical Devices Description No Information Available Encounters Type Date Location Provider Dx Diagnosis Office Visit 02/07/2019 10:15a [place] 04/23/07 Serina Perry PA-C R04.0 Epistaxis Assessments Date Code Description Provider 02/07/2019 R04.0 Epistaxis Serina Perry PA-C Plan of Treatment No Information Available Functional Status Description No Information Available Mental Status Description No Information Available Referrals Description No Information Available
--- OUTSIDE RECORDS SUMMARY | 2019-02-21 06:37 | XMS REPORT | Summary of Care ---
:1945 Author Organization [facility] Address [address] [facility] [place] [address] Care Team Providers Name Role Phone Shirley Euceda Primary Care Provider Reason for Referral Sleep Study (Routine) Status Reason Specialty Diagnoses / Referred By Referred To Procedures Contact Contact Pending Review Sleep Disorder Diagnoses STEPH (obstructive sleep apnea) Kemar Davis [facility] [place], [place] [phone] Phone: Scheduling Instructions This order is to be used to begin the process for the patient to have a Sleep Study performed. If you wish to have the patient evaluated by a Sleep Specialist, please place a "Refer Sleep Medicine Specialist" order. If you have questions, please contact our Patient Coordinators: Marie: [place]: Armando: ([phone] or Reason for Visit Reason Comments Hospital Follow Up follow from nose bleed Encounter Details Date Type Department Care Team Description 02/03/2019 Office Visit Kemar Sofia MD Epistaxis, recurrent (Primary Dx); Practice [address] STEPH (obstructive sleep apnea) [address] [place] [address] [place] [address] Allergies No Known Allergiesdocumented as of this encounter (statuses as of 02/03/2019) Medications Medication Sig Dispensed Refills Start Date [...] NEEDED strain, initial (for back pain). 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 Next recommended 3(three) years. documented as of this encounter (statuses as of 02/03/2019) Resolved Problems Problem Noted Date Resolved Date Syncope and collapse 10/09/2007 11/09/2009 Overview: Whenever patient feels pain. Morbid obesity 10/09/2007 10/09/2007 Routine general medical examination at a health care facility 09/24/2006 documented as of this encounter (statuses as of 02/03/2019) Immunizations Name Administration Dates Next Due Influenza [...] Sign Reading Time Taken Comments Blood Pressure 120/82 02/03/2019 2:22 PM EDT Pulse 80 02/03/2019 2:22 PM EDT Temperature - - Respiratory Rate - - Oxygen Saturation 99% 02/03/2019 2:22 PM EDT Inhaled Oxygen Concentration - - Weight 95.3 kg (210 lb) 02/03/2019 2:22 PM EDT Height 190.5 cm (6' 3") 02/03/2019 2:22 PM EDT Body Mass Index 26.25 02/03/2019 2:22 PM EDT documented in this encounter Progress Notes Kemar Davis MD - 02/03/2019 1:45 PM EDT PATIENT: Dinesh Olson : 1945 DATE OF SERVICE: 02/03/2019 CHIEF COMPLAINT: Chief Complaint Patient presents with Hospital Follow Up follow from nose bleed Subjective HISTORY OF PRESENT ILLNESS: Dinseh Olson is a 73-y.o. male. 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 States the balloon came out on Sunday and hedid have one mild recurrence yesterday--stopped with gauze and pressure. Presents today for reassessment. Further risk analysis for epistaxis--Pt notes his house has been extremely dry since turning onthe heat so he bought a humidifier. In addition, he notes his tells him that she stops breathing several times per night when he sleeps and snores loudly. He also states he has taken his BP at home and noted it to be as high as 140/80 but mostly lower than that. Past Medical History: Diagnosis Date Hemorrhoid Personal [...] file Gets together: Not on file Attends buddhism service: Not on file Active member of [...] . 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 Routine exercise: gardening/biking---no sig in winter. Pets: 2 birds---parakeets, 1 guniea pig. REVIEW OF SYSTEMS: Review of Systems Constitutional: Negative for chills and fever. HENT: Positive for nosebleeds. Negative for congestion, ear pain, sinus pain and sore throat. Eyes: Negative for blurred vision and photophobia. Respiratory: Negative for cough, hemoptysis, sputum production and shortness of breath. Cardiovascular: Negative for chest pain and palpitations. Skin: Negative for rash. Objective PHYSICAL EXAM: VITALS: BP 120/82 (BP Location: Right arm, Patient Position: Sitting) | Pulse 80 | Ht 6' 3" (1.905 m) | Wt 210 lb (95.3 kg) | SpO2 99% | BMI 26.25 kg/m Body mass index is 26.25 kg/m. Physical Exam Vitals signs and nursing note reviewed. Constitutional: General: He is not in acute distress. Appearance: Normal appearance. He is normal weight. He is not ill-appearing, toxic-appearing or diaphoretic. HENT: Head: Normocephalic and atraumatic. Right Ear: Tympanic membrane, ear canal and external ear normal. There is no impacted cerumen. Left Ear: Tympanic membrane, ear canal and external ear normal. There is no impacted cerumen. Nose: Congestion present. No rhinorrhea. Comments: Right nares is clear and moist. Left nares shown to be erythematous with a clear and obvious source of bleeding on the medial aspect in the venous plexus. I cauterized this area with silver nitrate with good results. No bleeding noted and patient tolerated the treatment well. Mouth/Throat: Mouth: Mucous membranes are moist. Pharynx: Oropharynx is clear. No oropharyngeal exudate or posterior oropharyngeal erythema. Eyes: General: Right eye: No discharge. Left eye: No discharge. Pupils: Pupils are equal, round, and reactive to light. Neurological: Mental Status: He is alert. Given obvious source of bleeding, patient verbally consented to use of silver nitrate sick on the site. This was applied for 2 seconds with good results. ASSESSMENT / IMPRESSION: ICD-9-CM ICD-10-CM 1. Epistaxis, recurrent 784.7 R04.0 2. STEPH (obstructive sleep apnea) 327.23 G47.33 REFER TO SLEEP STUDY LAB Plan 1. Epistaxis, recurrent I believe this is caused by dry air and likely the patient's snoring. I have ordered a sleep study to address his possible sleep apnea and provided the patient with bacitracin to use x 2 days on the affected area, then he can use vaseline or other emolient with the humidifier to reduce the risk of recurrence. Epistaxis precautions provided. If this continues despite lubrication and humidification, will consult ENT for more definitive treatment. - silver nitrate JAX 2. STEPH (obstructive sleep apnea) - REFER TO SLEEP STUDY LAB Author: Kemar Davis MD 02/03/2019 15:02 documented in this encounter Plan of Treatment Date Type Specialty Care Team Description 02/28/2019 Office Visit [place] [address] [place] [address] [phone] Name Type Priority Associated Diagnoses Order Schedule REFER TO SLEEP STUDY Referral Routine STEPH (obstructive sleep Ordered: 02/03 LAB apnea) Health Maintenance Due Date Last Done Comments [...] filedocumented in this encounter Visit Diagnoses Diagnosis Epistaxis, recurrent - Primary Epistaxis STEPH (obstructive sleep apnea) Obstructive sleep apnea (adult) (pediatric) documented in this encounter Guarantor Name Account Type Relation to Date of Phone Billing Patient Address Dinesh Olson Personal/Family 1945 [address] (Home) [phone] [place], [place] (Work) [id number] documented as of this encounter Advance Directives Type Date Recorded 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
--- NOTE | 2019-02-21 07:34 | ED ---
Throat Pain/Nasal Congestion - HPI Summary HPI Summary: Patient is a 73 y/o M presenting to [facility] with chief complaint of left nare epistaxis. Epistaxis onset last night, 02/20/19. Patient was able to control bleeding at the time but states that bleeding resumed this morning and that he was unable to control it. He has had previous visits at [facility] for similar issues. Patient notes that he saw ENT around two weeks ago for similar issues. He states that he had his bleed site cauterized and states that he had no issues until last night. Patient is on a statin and trazadone but otherwise denies any other medications. Patient notes that he has been attempting to keep his nares moisturized. Pt does not report any fever, chills, erythema of eyes, sore throat, CP, SOB, cough, abdominal pain, N/V, dysuria, hematuria, myalgia, edema, rash, or dizziness. On triage, pain is rated 0/10, nothing is noted to aggravate/alleviate Sx. Home medications and allergies are reviewed. 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 is present in the room. - History of Current Complaint Chief Complaint: EDEpistaxis Time Seen by Provider: 02/21/19 07:25 Hx Obtained From: Patient Onset/Duration: Lasting Hours, Still Present Severity: Moderate Associated Signs And Symptoms: Positive: Nasal Discharge - epistaxis Cough: None - Allergies/Home Medications Allergies/Adverse Reactions: Allergies Allergy/AdvReac Type Severity Reaction Status Date / Time No Known Allergies Allergy Verified 02/21/19 06:33 PMH/Surg Hx/FS Hx/Imm Hx Endocrine/Hematology History: Denies: Hx Diabetes Cardiovascular History: Denies: Hx Hypertension Sensory History: Denies: Hx Legally Blind, Hx Deafness Opthamlomology History: Denies: Hx Legally Blind - Surgical History Surgery Procedure, Year, and Place: t/a Infectious Disease History: No Infectious Disease History: Denies: Traveled Outside the [place] in Last 30 Days - Family History Known Family History: Positive: Cardiac Disease - Social History Alcohol Use: Daily Hx Substance Use: No Substance Use Type: Reports: None Hx Tobacco Use: No Smoking Status (MU): Never Smoked Tobacco Review of Systems Negative: Fever - on vitals, temp is 96.2 F , Chills Negative: Erythema Positive: Epistaxis. Negative: Sore Throat Negative: Chest Pain Negative: Shortness Of Breath, Cough Negative: Abdominal Pain, Vomiting, Nausea Negative: hematuria Negative: Myalgia, Edema Neurological: Other - negative - dizziness All Other Systems Reviewed And Are Negative: Yes Physical Exam - Summary Physical Exam Summary: Constitutional: Well-developed, Well-nourished, Alert. (-) Distressed Skin: Warm, Dry HENT: Normocephalic; Atraumatic; There is a non-bleeding site at the left septum. There is dried blood around the nare. Eyes: Conjunctiva normal Neck: Musculoskeletal ROM normal neck. (-) JVD, (-) Stridor, (-) Tracheal deviation Cardio: Rhythm regular, rate normal, Heart sounds normal; Intact distal pulses; The pedal pulses are 2+ and symmetric. Radial pulses are 2+ and symmetric. (-) Murmur Pulmonary/Chest wall: Effort normal. (-) Respiratory distress, (-) Wheezes, (-) Rales Abd: Soft, (-) tenderness, (-) Distension, (-) Guarding, (-) Rebound Musculoskeletal: (-) Edema Lymph: (-) Cervical adenopathy Neuro: Alert, Oriented x3 Psych: Mood and affect Normal Triage Information Reviewed: Yes Vital Signs On Initial Exam: Initial Vitals Temp Pulse Resp BP Pulse Ox 96.2 F 85 18 150/92 98 02/21/19 06:31 11 06:31 02/21/19 06:31 02/21/19 06:31 02/21/19 06:31 Vital Signs Reviewed: Yes Procedures - Sedation Patient Received Moderate/Deep Sedation with Procedure: No Diagnostics - Vital Signs Vital Signs Temp Pulse Resp BP Pulse Ox 02/21/19 06:31 96.2 F 85 18 150/92 98 - Laboratory Lab Statement: Any lab studies that have been ordered have been reviewed, and results considered in the medical decision making process. Re-Evaluation - Re-Evaluation First Eval Re-Evaluation Time: 08:15 Comment: ENT office was contacted and patient's case discussed. Appointment at 1030 02/21/19 was obtained. Second Eval Re-Evaluation Time: 08:18 Comment: Bleeding has been controlled throughout duration of ED stay. Patient is discharged to home and will go to ENT office at 1030 for scheduled appointment. Patient is agreeable with this. EENT Course/Dx - Course Course Of Treatment: Patient is a 73 y/o M presenting to [facility] with chief complaint of left nare epistaxis. Epistaxis onset last night, 02/20/19. Patient was able to control bleeding at the time but states that bleeding resumed this morning and that he was unable to control it. He has had previous visits at [facility] for similar issues. On physical exam, it was noted that there is a non- bleeding site at the left septum. There is dried blood around the nare. Initial BP was 150/92. Aftrin nasal spray to left nare was administered. Patient was observed in ED with no recurrence of bleeding. ENT office appointment was obtained for the patient. The patient is discharged to home. Strict return precautions were given. Patient understands and agrees with plan as discussed. - Diagnoses Provider Diagnoses: Recurrent epistaxis Discharge ED - Sign-Out/Discharge Documenting (check all that apply): Patient Departure - discharge - Discharge Plan Condition: Stable Disposition: HOME Patient Education Materials: Nosebleed (ED) Referrals: Samuel Alvarez MD [Medical Doctor] - Shirley Euceda MD [Primary Care Provider] - Additional Instructions: PLEASE RETURN TO ED FOR ANY NEW OR CONCERNING SYMPTOMS. PLEASE GO TO ENT OFFICE THIS MORNING AT 10:30 AM FOR APPOINTMENT. - Attestation Statements Document Initiated by Scribe: Yes Documenting Scribe: MARGARITO SAUNDERS Provider For Whom Pabloibe is Documenting (Include Credential): LYLE GARCIA MD Scribe Attestation: MARGARITO Deleon, scribed for LYLE GARCIA MD on 02/21/19 at 0821. Status of Scribe Document: Ready
[2019-02-21] MEDS ORDERED: Oxymetazoline 0.05% NASAL SPR* 15 ML BTL LEFT NARE ONE (07:42)
[2019-02-21 08:32] VITALS: BP 147/97
== END 2019-02-21 08:30 | disposition home or self-care (01) ==
LOC: ED 06:30
DX: R04.0 Epistaxis (principal)
CPT/HCPCS: 99281; A9270-GY

== ENCOUNTER 2022-06-26 10:35 | Inpatient (IN) ==
[2022-06-26 12:53] LABS: Urine Appearance Cloudy; Urine Bilirubin Negative (Negative); Urine Blood 1+ (Negative); Urine Color Amber; Urine Glucose Negative (Negative); Urine Ketones Negative (Negative); Urine Nitrite Negative (Negative); Urine Protein 1+(30 mg/dL) (Negative); Urine Specific Gravity 1.023 (1.002-1.030); Urine Urobilinogen Negative (Negative)
[2022-06-26 12:55] LABS: Urine Bacteria Absent (Absent); Urine Red Blood Cell Trace(0-2/hpf) (Absent); Urine White Blood Cell Trace(0-5/hpf) (Absent)
[2022-06-26 12:55] LABS: Hematocrit 44 % (42-52); Hemoglobin 15.3 g/dL (14.0-18.0); Mean Corpuscular HGB Conc 35 g/dL (31-36); Mean Corpuscular Hemoglobin 29 pg (27-31); Mean Corpuscular Volume 85 fL (80-94); Mean Platelet Volume 8.5 fL (7.4-10.4); Platelet Count 148 10^3/uL (150-450); Red Blood Count 5.21 10^6 /uL (4.18-5.48); Red Cell Distribution Width 15 % (10-15); White Blood Count 15.2 10^3/uL (3.5-10.8)
[2022-06-26 13:13] LABS: Albumin 3.5 g/dL (3.2-5.2); Albumin/Globulin Ratio 1.5 (1-3); C Reactive Protein 142.89 mg/L (<8.01); Creatinine, Serum 1.27 mg/dL (0.67-1.17); Globulin 2.3 g/dL (2-4); Magnesium 1.9 mg/dL (1.9-2.7); Potassium 4.6 mmol/L (3.5-5.0); Total Protein 5.8 g/dL (6.4-8.9); eGFR CKD-EPI 58.9 (>60)
[2022-06-26] MEDS ORDERED: Lactated Ringers 1000 ml BAG 1,000 ML IV ONE (13:16)
[2022-06-26] MEDS ORDERED: Iodixanol (CONTRAST) 320 MG/ML 100 ML SDV IV ONE ×2 (13:23→16:55)
[2022-06-26] MEDS ORDERED: Labetalol IV 5 MG/ML 20 ml VIAL IV PUSH PRN (14:05)
[2022-06-26 14:31] LABS: RBC Morphology Normal (Normal)
[2022-06-26 14:33] LABS: ABS Lymphocytes 2.9 10^3/ul (1.0-4.8); ABS Neutrophils 11.4 10^3/ul (1.5-7.7)
[2022-06-26] MEDS ORDERED: NS 0.9% 1000 ml BAG 1,000 ML IV ONE (15:05)
[2022-06-26] MEDS ORDERED: Polyethylene Glycol 3350 17 GM PACKET PO PRN (16:34)
[2022-06-26] MEDS ORDERED: Enoxaparin 40 MG/0.4 ML SYR SUBCUT SCH (17:00)
[2022-06-26 19:10] LABS: Direct Bilirubin 1.8 mg/dL (0.03-0.18); Indirect Bilirubin 1.2 mg/dL (0.3-1.0)
[2022-06-27] MEDS: Lactated Ringers 1000 ml BAG 1,000 ML IV SCH ×3 (03:03→17:37)
[2022-06-27 06:19] LABS: Albumin 2.6 g/dL (3.2-5.2); Calcium 7.6 mg/dL (8.6-10.3); Potassium 4.2 mmol/L (3.5-5.0); Total Bilirubin 3.2 mg/dL (0.2-1.0)
[2022-06-27 06:25] LABS: Albumin/Globulin Ratio 1.5 (1-3); Creatinine, Serum 1.14 mg/dL (0.67-1.17); Globulin 1.7 g/dL (2-4); Total Protein 4.3 g/dL (6.4-8.9); eGFR CKD-EPI 67.1 (>60)
[2022-06-27 08:43] LABS: Hematocrit 37 % (42-52); Hemoglobin 12.5 g/dL (14.0-18.0); Mean Corpuscular HGB Conc 34 g/dL (31-36); Mean Corpuscular Hemoglobin 29 pg (27-31); Mean Corpuscular Volume 85 fL (80-94); Mean Platelet Volume 8.6 fL (7.4-10.4); Platelet Count 120 10^3/uL (150-450); Red Blood Count 4.38 10^6 /uL (4.18-5.48); Red Cell Distribution Width 15 % (10-15); White Blood Count 8.8 10^3/uL (3.5-10.8)
[2022-06-27 08:51] LABS: INR 1.24 (0.88-1.18)
[2022-06-27 09:45] LABS: RBC Morphology Normal (Normal)
[2022-06-27 09:47] LABS: ABS Neutrophils 6.8 10^3/ul (1.5-7.7)
[2022-06-27 09:48] LABS: ABS Lymphocytes 1.4 10^3/ul (1.0-4.8)
[2022-06-27] MEDS ORDERED: fentaNYL 100 mcg/2 ml 50 MCG/ML VIAL ONE (11:50)
[2022-06-27] MEDS: Enoxaparin 40 MG/0.4 ML SYR SUBCUT SCH (17:37)
[2022-06-27 18:46] LABS: PSA Screening Total 2.698 ng/mL (0-4.000)
[2022-06-27 18:50] LABS: Carcinoembryonic Antigen 0.9 ng/mL (0.1-5.0)
[2022-06-27] MEDS ORDERED: Lactated Ringers 1000 ml BAG 1,000 ML IV ONE (21:00)
[2022-06-28 05:57] LABS: Hematocrit 33 % (42-52); Hemoglobin 11.5 g/dL (14.0-18.0); Mean Corpuscular HGB Conc 35 g/dL (31-36); Mean Corpuscular Hemoglobin 29 pg (27-31); Mean Corpuscular Volume 84 fL (80-94); Mean Platelet Volume 8.5 fL (7.4-10.4); Platelet Count 112 10^3/uL (150-450); Red Blood Count 3.96 10^6 /uL (4.18-5.48); Red Cell Distribution Width 15 % (10-15); White Blood Count 6.3 10^3/uL (3.5-10.8)
[2022-06-28 06:37] LABS: Albumin 2.4 g/dL (3.2-5.2); Albumin/Globulin Ratio 1.6 (1-3); Calcium 7.5 mg/dL (8.6-10.3); Creatinine, Serum 1.06 mg/dL (0.67-1.17); Globulin 1.5 g/dL (2-4); Potassium 4.1 mmol/L (3.5-5.0); Total Bilirubin 6.1 mg/dL (0.2-1.0); Total Protein 3.9 g/dL (6.4-8.9); eGFR CKD-EPI 73.2 (>60)
[2022-06-28] MEDS ORDERED: Lactated Ringers 1000 ml BAG 1,000 ML IV ONE (07:21)
[2022-06-28 08:03] LABS: Polychromasia 1+
[2022-06-28 08:05] LABS: ABS Lymphocytes 0.6 10^3/ul (1.0-4.8); ABS Neutrophils 4.8 10^3/ul (1.5-7.7)
[2022-06-28] MEDS ORDERED: Pneumococcal Vac 23-Polyvalent IM ONE (09:00)
[2022-06-28 09:19] LABS: Indirect Bilirubin 2.1 mg/dL (0.3-1.0)
[2022-06-28 10:04] LABS: Uric Acid 6.9 mg/dL (4.4-7.6)
[2022-06-28 10:14] LABS: Phosphorus 3.2 mg/dL (2.5-5.0)
[2022-06-28] MEDS ORDERED: NS 0.9% 1000 ml BAG 1,000 ML IV SCH (10:45)
[2022-06-28 14:27] LABS: Hepatitis B Surface Ab Not Immune (Immune); Hepatitis C Antibody Negative (Negative)
[2022-06-28] MEDS: methylPREDNISolone SOD SUCC 125 mg 2 ML VIAL IV SCH (15:48)
[2022-06-28 16:22] LABS: Hepatitis B Surface Antigen Nonreactive (Nonreactive)
[2022-06-28] MEDS: Enoxaparin 40 MG/0.4 ML SYR SUBCUT SCH (18:05)
[2022-06-28] MEDS: NS 0.9% 1000 ml BAG 1,000 ML IV SCH (22:51)
[2022-06-29] MEDS: methylPREDNISolone SOD SUCC 125 mg 2 ML VIAL IV SCH ×2 (03:11→15:03)
[2022-06-29 06:50] LABS: Hematocrit 36 % (42-52); Hemoglobin 12.6 g/dL (14.0-18.0); Mean Corpuscular HGB Conc 35 g/dL (31-36); Mean Corpuscular Hemoglobin 29 pg (27-31); Mean Corpuscular Volume 84 fL (80-94); Mean Platelet Volume 9.1 fL (7.4-10.4); Platelet Count 115 10^3/uL (150-450); Red Blood Count 4.29 10^6 /uL (4.18-5.48); Red Cell Distribution Width 15 % (10-15); White Blood Count 4.8 10^3/uL (3.5-10.8)
[2022-06-29 07:08] LABS: Albumin 2.6 g/dL (3.2-5.2); Albumin/Globulin Ratio 1.7 (1-3); Calcium 7.5 mg/dL (8.6-10.3); Creatinine, Serum 0.98 mg/dL (0.67-1.17); Globulin 1.5 g/dL (2-4); Potassium 4.3 mmol/L (3.5-5.0); Total Protein 4.1 g/dL (6.4-8.9); eGFR CKD-EPI 80.4 (>60)
[2022-06-29] MEDS: NS 0.9% 1000 ml BAG 1,000 ML IV SCH ×3 (07:41→23:44)
[2022-06-29 08:27] LABS: Polychromasia 1+
[2022-06-29 08:29] LABS: ABS Lymphocytes 0.2 10^3/ul (1.0-4.8); ABS Neutrophils 4.3 10^3/ul (1.5-7.7)
[2022-06-29] MEDS ORDERED: Meperidine 50 mg/ml SYRINGE 1 ml IV PRN (11:22)
[2022-06-29] MEDS ORDERED: Famotidine IV 10 MG/ML 2 ml VIAL (20 mg) IV PRN (11:24)
[2022-06-29] MEDS ORDERED: methylPREDNISolone SOD SUCC 125 mg 2 ML VIAL IV PRN (11:26)
[2022-06-29] MEDS ORDERED: Rasburicase 3 MG in NS 0.9% 50 ML 48 ML IVPB ONE (12:00)
[2022-06-29 12:54] LABS: Albumin/Globulin Ratio 0.96; Gamma Globulin 0.7 g/dL (0.6-1.6); Total Protein(PEP) 6.1 g/dL (6.3 - 7.9)
[2022-06-29] MEDS ORDERED: NS 0.9% IVPB ONE (13:30)
[2022-06-29] MEDS ORDERED: CYCLOPHOSPHAMIDE IVPB ONE (13:30)
[2022-06-29] MEDS: Enoxaparin 40 MG/0.4 ML SYR SUBCUT SCH (16:52)
[2022-06-30] MEDS ORDERED: Albuterol 2.5mg/3 ml (0.083%) NEB.SOLN INH PRN (02:06)
[2022-06-30] MEDS: methylPREDNISolone SOD SUCC 125 mg 2 ML VIAL IV SCH ×2 (02:35→14:36)
[2022-06-30 06:10] LABS: Hematocrit 33 % (42-52); Hemoglobin 11.2 g/dL (14.0-18.0); Mean Corpuscular HGB Conc 34 g/dL (31-36); Mean Corpuscular Hemoglobin 28 pg (27-31); Mean Corpuscular Volume 84 fL (80-94); Mean Platelet Volume 8.8 fL (7.4-10.4); Platelet Count 116 10^3/uL (150-450); Red Blood Count 3.96 10^6 /uL (4.18-5.48); Red Cell Distribution Width 15 % (10-15); White Blood Count 4.8 10^3/uL (3.5-10.8)
[2022-06-30 06:21] LABS: Albumin 2.4 g/dL (3.2-5.2); Albumin/Globulin Ratio 1.7 (1-3); Calcium 7.4 mg/dL (8.6-10.3); Creatinine, Serum 1.04 mg/dL (0.67-1.17); Globulin 1.4 g/dL (2-4); Phosphorus 3.4 mg/dL (2.5-5.0); Potassium 4.6 mmol/L (3.5-5.0); Total Bilirubin 5.7 mg/dL (0.2-1.0); Total Protein 3.8 g/dL (6.4-8.9); Uric Acid 5.9 mg/dL (4.4-7.6); eGFR CKD-EPI 74.9 (>60)
[2022-06-30] MEDS ORDERED: NS 0.9% 500 ml BAG 500 ML IV ONE (07:30)
[2022-06-30] MEDS: NS 0.9% 1000 ml BAG 1,000 ML IV SCH ×2 (08:42→17:50)
[2022-06-30 09:48] LABS: Anisocytosis 1+
[2022-06-30 09:49] LABS: ABS Lymphocytes 0.6 10^3/ul (1.0-4.8); ABS Neutrophils 3.8 10^3/ul (1.5-7.7); Polychromasia 1+
[2022-06-30 09:50] LABS: ABS Basophils 0.1 10^3/ul (0-0.2); ABS Lymphocytes 2.5 10^3/ul (1.0-4.8); ABS Monocytes 0.3 10^3/ul (0-0.8); ABS Neutrophils 1.8 10^3/ul (1.5-7.7); Eosinophil % 0.3 %; Lymphocyte % 51.9 %; Nucleated Red Blood Cells % 0.6
[2022-06-30] MEDS ORDERED: Famotidine IV 10 MG/ML 2 ml VIAL (20 mg) IV PRN (11:36)
[2022-06-30] MEDS ORDERED: Meperidine 50 mg/ml SYRINGE 1 ml IV PRN ×2 (11:36→11:39)
[2022-06-30] MEDS ORDERED: methylPREDNISolone SOD SUCC 125 mg 2 ML VIAL IV PRN (11:37)
[2022-06-30] MEDS ORDERED: NS 0.9% IVPB ONE (12:00)
[2022-06-30] MEDS ORDERED: RITUXIMAB IVPB ONE (12:00)
[2022-06-30] MEDS: Ondansetron 4 mg VIAL 2 MG/ML 2 ml VIAL IV PRN (13:23)
[2022-06-30] MEDS ORDERED: EPINEPHrine Anaphylaxis SYR CERTADOSE SYR KIT IM PRN (14:33)
[2022-06-30 14:46] LABS: HCG Tumor Marker <0.6 IU/L (<1.4)
[2022-06-30] MEDS ORDERED: methylPREDNISolone SOD SUCC 125 mg 2 ML VIAL ONE (14:52)
[2022-06-30] MEDS ORDERED: Pantoprazole VIAL 40 MG VIAL ONE (14:52)
[2022-06-30] MEDS ORDERED: NS 0.9% 1000 ml BAG 1,000 ML IV ONE (14:53)
[2022-06-30] MEDS ORDERED: methylPREDNISolone SOD SUCC 125 mg 2 ML VIAL IV ONE (14:53)
[2022-06-30 14:54] LABS: AFP Tumor Marker 1.3 ng/mL (<8.4)
[2022-06-30 16:35] LABS: Urine Appearance Clear; Urine Bilirubin Negative (Negative); Urine Blood 1+ (Negative); Urine Color Amber; Urine Glucose Negative (Negative); Urine Ketones Negative (Negative); Urine Nitrite Negative (Negative); Urine Protein Negative (Negative); Urine Specific Gravity 1.014 (1.002-1.030); Urine Urobilinogen Negative (Negative)
[2022-06-30 16:41] LABS: Urine Bacteria Absent (Absent); Urine Red Blood Cell 1+(3-5/hpf) (Absent); Urine White Blood Cell Trace(0-5/hpf) (Absent)
[2022-06-30 16:47] LABS: Calcium 7.2 mg/dL (8.6-10.3); Creatinine, Serum 1.05 mg/dL (0.67-1.17); Uric Acid 9.5 mg/dL (4.4-7.6)
[2022-06-30] MEDS ORDERED: Rasburicase 1.5 MG VIAL(NF) IVPB ONE (16:57)
[2022-06-30 17:07] LABS: Phosphorus 4.7 mg/dL (2.5-5.0); Potassium 4.7 mmol/L (3.5-5.0)
[2022-06-30] MEDS ORDERED: Rasburicase 6 MG in NS 0.9% 50 ML 46 ML IVPB ONE (18:00)
[2022-06-30 18:24] LABS: G6PD Quantitative RBC 6.7 U/g Hb (8.0 - 11.9)
[2022-06-30] MEDS: Enoxaparin 40 MG/0.4 ML SYR SUBCUT SCH (19:26)
[2022-06-30 21:58] LABS: Calcium 6.9 mg/dL (8.6-10.3); Creatinine, Serum 0.96 mg/dL (0.67-1.17); Phosphorus 4.9 mg/dL (2.5-5.0); Uric Acid 8.2 mg/dL (4.4-7.6); eGFR CKD-EPI 82.4 (>60)
[2022-06-30 21:59] LABS: Potassium 5.1 mmol/L (3.5-5.0)
[2022-07-01] MEDS: methylPREDNISolone SOD SUCC 125 mg 2 ML VIAL IV SCH ×2 (02:02→13:49)
[2022-07-01] MEDS: NS 0.9% 1000 ml BAG 1,000 ML IV SCH ×3 (02:38→19:17)
[2022-07-01 02:57] LABS: Calcium 6.7 mg/dL (8.6-10.3); Creatinine, Serum 0.94 mg/dL (0.67-1.17); Phosphorus 5.3 mg/dL (2.5-5.0); Potassium 4.8 mmol/L (3.5-5.0); Uric Acid 6.7 mg/dL (4.4-7.6); eGFR CKD-EPI 84.5 (>60)
[2022-07-01 06:06] LABS: Hematocrit 29 % (42-52); Hemoglobin 9.7 g/dL (14.0-18.0); Mean Corpuscular HGB Conc 34 g/dL (31-36); Mean Corpuscular Hemoglobin 29 pg (27-31); Mean Corpuscular Volume 83 fL (80-94); Nucleated Red Blood Cells % 0.2; Red Blood Count 3.42 10^6 /uL (4.18-5.48); Red Cell Distribution Width 15 % (10-15); White Blood Count 2.9 10^3/uL (3.5-10.8)
[2022-07-01 06:44] LABS: Albumin 2.4 g/dL (3.2-5.2); Calcium 6.6 mg/dL (8.6-10.3); Creatinine, Serum 0.86 mg/dL (0.67-1.17); Globulin 1.2 g/dL (2-4); Phosphorus 5.5 mg/dL (2.5-5.0); Potassium 4.9 mmol/L (3.5-5.0); Total Bilirubin 4.8 mg/dL (0.2-1.0); Total Protein 3.6 g/dL (6.4-8.9); Uric Acid 6.2 mg/dL (4.4-7.6); eGFR CKD-EPI 90.3 (>60)
[2022-07-01 08:24] LABS: Lymphocyte % 75.6 %; Platelet Count 88 10^3/uL (150-450); RBC Morphology Normal (Normal)
[2022-07-01 08:26] LABS: ABS Lymphocytes 0.1 10^3/ul (1.0-4.8); ABS Neutrophils 2.6 10^3/ul (1.5-7.7)
[2022-07-01 08:27] LABS: ABS Neutrophils 2.6 10^3/ul (1.5-7.7)
[2022-07-01 08:28] LABS: ABS Lymphocytes 0.1 10^3/ul (1.0-4.8); ABS Monocytes 0.2 10^3/ul (0-0.8)
[2022-07-01 09:46] LABS: Corrected Retic Count 1.5 % (0.5-1.5); Hematocrit for Retic CNT 29 % (42-52); RBC Retic Count 3.48 10^6/uL (4.18-5.48)
[2022-07-01] MEDS: Enoxaparin 40 MG/0.4 ML SYR SUBCUT SCH (16:57)
[2022-07-02] MEDS: methylPREDNISolone SOD SUCC 125 mg 2 ML VIAL IV SCH (03:31)
[2022-07-02] MEDS: NS 0.9% 1000 ml BAG 1,000 ML IV SCH ×2 (07:00→12:22)
[2022-07-02 07:04] LABS: Albumin 2.3 g/dL (3.2-5.2); Albumin/Globulin Ratio 1.6 (1-3); Creatinine, Serum 0.86 mg/dL (0.67-1.17); Globulin 1.4 g/dL (2-4); Phosphorus 4.2 mg/dL (2.5-5.0); Potassium 4.8 mmol/L (3.5-5.0); Total Bilirubin 3.4 mg/dL (0.2-1.0); Total Protein 3.7 g/dL (6.4-8.9); Uric Acid 4.3 mg/dL (4.4-7.6); eGFR CKD-EPI 90.3 (>60)
[2022-07-02] MEDS ORDERED: CALCIUM GLUCONATE 1GM/50ML NS 1 GM/50 ML BAG IV ONE (13:00)
[2022-07-02] MEDS: Enoxaparin 40 MG/0.4 ML SYR SUBCUT SCH (16:54)
[2022-07-02] MEDS: Calcium Carb (TUMS) 500 mg CHEW TAB PO SCH (20:44)
[2022-07-02] MEDS: AZELASTINE INTRANASAL SCH (20:44)
[2022-07-03 06:49] LABS: Uric Acid 4.5 mg/dL (4.4-7.6)
[2022-07-03] MEDS: NS 0.9% 1000 ml BAG 1,000 ML IV SCH ×3 (08:20→22:49)
[2022-07-03] MEDS: Calcium Carb (TUMS) 500 mg CHEW TAB PO SCH (08:30)
[2022-07-03 08:43] LABS: Hematocrit 29 % (42-52); Hemoglobin 9.8 g/dL (14.0-18.0); Mean Corpuscular HGB Conc 34 g/dL (31-36); Mean Corpuscular Hemoglobin 29 pg (27-31); Mean Corpuscular Volume 84 fL (80-94); Mean Platelet Volume 9.3 fL (7.4-10.4); Platelet Count 96 10^3/uL (150-450); Red Blood Count 3.39 10^6 /uL (4.18-5.48); Red Cell Distribution Width 15 % (10-15)
[2022-07-03 10:00] LABS: RBC Morphology Normal (Normal)
[2022-07-03 10:04] LABS: ABS Lymphocytes 0.8 10^3/ul (1.0-4.8)
[2022-07-03] MEDS ORDERED: Rasburicase 1.5 MG VIAL(NF) IVPB ONE (10:08)
[2022-07-03] MEDS ORDERED: Famotidine IV 10 MG/ML 2 ml VIAL (20 mg) IV PRN (10:21)
[2022-07-03] MEDS ORDERED: methylPREDNISolone SOD SUCC 125 mg 2 ML VIAL IV PRN (10:21)
[2022-07-03] MEDS ORDERED: Meperidine 50 mg/ml SYRINGE 1 ml IV PRN (10:22)
[2022-07-03 10:28] LABS: Calcium 7.4 mg/dL (8.6-10.3); Potassium 4.5 mmol/L (3.5-5.0); Total Bilirubin 3.2 mg/dL (0.2-1.0)
[2022-07-03] MEDS ORDERED: Famotidine IV 10 MG/ML 2 ml VIAL (20 mg) IV ONE (10:30)
[2022-07-03] MEDS ORDERED: methylPREDNISolone SOD SUCC 125 mg 2 ML VIAL IV ONE (10:30)
[2022-07-03] MEDS ORDERED: RASBURICASE IVPB ONE (10:30)
[2022-07-03] MEDS ORDERED: NS 0.9% IVPB ONE ×2 (10:30→12:00)
[2022-07-03 10:34] LABS: Creatinine, Serum 0.96 mg/dL (0.67-1.17); eGFR CKD-EPI 82.4 (>60)
[2022-07-03] MEDS ORDERED: RITUXIMAB IVPB ONE (12:00)
[2022-07-03] MEDS: Enoxaparin 40 MG/0.4 ML SYR SUBCUT SCH (17:33)
[2022-07-03] MEDS: AZELASTINE INTRANASAL SCH (19:37)
[2022-07-04 00:04] LABS: Albumin 2.5 g/dL (3.2-5.2); Albumin/Globulin Ratio 1.8 (1-3); Calcium 7.6 mg/dL (8.6-10.3); Creatinine, Serum 0.96 mg/dL (0.67-1.17); Globulin 1.4 g/dL (2-4); Phosphorus 4.9 mg/dL (2.5-5.0); Potassium 4.9 mmol/L (3.5-5.0); Total Bilirubin 2.3 mg/dL (0.2-1.0); Total Protein 3.9 g/dL (6.4-8.9); Uric Acid 3.5 mg/dL (4.4-7.6); eGFR CKD-EPI 82.4 (>60)
[2022-07-04 06:29] LABS: Hematocrit 25 % (42-52); Hemoglobin 8.6 g/dL (14.0-18.0); Mean Corpuscular HGB Conc 34 g/dL (31-36); Mean Corpuscular Hemoglobin 29 pg (27-31); Mean Corpuscular Volume 84 fL (80-94); Mean Platelet Volume 8.7 fL (7.4-10.4); Platelet Count 98 10^3/uL (150-450); Red Blood Count 2.99 10^6 /uL (4.18-5.48); Red Cell Distribution Width 15 % (10-15); White Blood Count 3.1 10^3/uL (3.5-10.8)
[2022-07-04 06:50] LABS: Albumin 2.3 g/dL (3.2-5.2); Albumin/Globulin Ratio 1.8 (1-3); Calcium 7.3 mg/dL (8.6-10.3); Creatinine, Serum 0.93 mg/dL (0.67-1.17); Globulin 1.3 g/dL (2-4); Phosphorus 4.3 mg/dL (2.5-5.0); Potassium 4.2 mmol/L (3.5-5.0); Total Bilirubin 2.2 mg/dL (0.2-1.0); Total Protein 3.6 g/dL (6.4-8.9); Uric Acid 3.5 mg/dL (4.4-7.6); eGFR CKD-EPI 85.6 (>60)
[2022-07-04] MEDS: NS 0.9% 1000 ml BAG 1,000 ML IV SCH ×2 (06:53→18:15)
[2022-07-04 08:43] LABS: RBC Morphology Normal (Normal)
[2022-07-04 08:45] LABS: ABS Lymphocytes 0.2 10^3/ul (1.0-4.8); ABS Neutrophils 2.8 10^3/ul (1.5-7.7)
[2022-07-04] MEDS ORDERED: Famotidine IV 10 MG/ML 2 ml VIAL (20 mg) IV PRN (08:47)
[2022-07-04] MEDS ORDERED: methylPREDNISolone SOD SUCC 125 mg 2 ML VIAL IV PRN (08:47)
[2022-07-04] MEDS ORDERED: Meperidine 50 mg/ml SYRINGE 1 ml IV PRN (08:47)
[2022-07-04] MEDS ORDERED: methylPREDNISolone SOD SUCC 125 mg 2 ML VIAL IV ONE (09:00)
[2022-07-04] MEDS ORDERED: Famotidine IV 10 MG/ML 2 ml VIAL (20 mg) IV ONE (09:00)
[2022-07-04] MEDS ORDERED: NS 0.9% IVPB ONE ×2 (09:30→10:00)
[2022-07-04] MEDS ORDERED: RASBURICASE IVPB ONE (09:30)
[2022-07-04] MEDS ORDERED: RITUXIMAB IVPB ONE (10:00)
[2022-07-04] MEDS: Enoxaparin 40 MG/0.4 ML SYR SUBCUT SCH (17:54)
[2022-07-04] MEDS: AZELASTINE INTRANASAL SCH (21:14)
[2022-07-05] MEDS: Ondansetron 4 mg VIAL 2 MG/ML 2 ml VIAL IV PRN (02:14)
[2022-07-05] MEDS: NS 0.9% 1000 ml BAG 1,000 ML IV SCH ×2 (02:14→13:37)
[2022-07-05 06:04] LABS: Hematocrit 25 % (42-52); Hemoglobin 8.6 g/dL (14.0-18.0); Mean Corpuscular HGB Conc 34 g/dL (31-36); Mean Corpuscular Hemoglobin 29 pg (27-31); Mean Corpuscular Volume 85 fL (80-94); Mean Platelet Volume 8.7 fL (7.4-10.4); Platelet Count 99 10^3/uL (150-450); Red Blood Count 2.96 10^6 /uL (4.18-5.48); Red Cell Distribution Width 16 % (10-15); White Blood Count 1.8 10^3/uL (3.5-10.8)
[2022-07-05 06:18] LABS: ALT 107 U/L (7-52); AST 33 U/L (13-39); Albumin 2.5 g/dL (3.2-5.2); Albumin/Globulin Ratio 1.8 (1-3); Alkaline Phosphatase 261 U/L (35-149); Anion Gap 4 mmol/L (2-11); Blood Urea Nitrogen 20 mg/dL (6-24); CO2 Carbon Dioxide 27 mmol/L (22-32); Calcium 7.5 mg/dL (8.6-10.3); Chloride 106 mmol/L (101-111); Creatinine, Serum 0.85 mg/dL (0.67-1.17); Globulin 1.4 g/dL (2-4); Glucose 74 mg/dL (70-100); Phosphorus 3.6 mg/dL (2.5-5.0); Potassium 4.1 mmol/L (3.5-5.0); Sodium 137 mmol/L (135-145); Total Protein 3.9 g/dL (6.4-8.9); Uric Acid < 1.7 mg/dL (4.4-7.6); eGFR CKD-EPI 90.6 (>60)
[2022-07-05 07:44] LABS: Nucleated Red Blood Cells % 0.3
[2022-07-05 07:57] LABS: ABS Lymphocytes 0.5 10^3/ul (1.0-4.8); ABS Monocytes 0.1 10^3/ul (0-0.8); ABS Neutrophils 1.1 10^3/ul (1.5-7.7); Anisocytosis 1+; Eosinophil % 0.9 %; Lymphocyte % 30.3 %
[2022-07-05] MEDS ORDERED: PALONOSETRON HCL 0.05 MG/ML (0.25 MG) SYRINGE (0.05 MG/ML) IV ONE (11:30)
[2022-07-05] MEDS ORDERED: vinCRIStine 2 MG in NS 0.9% 50 ML 50 ML IVPB ONE (12:30)
[2022-07-05] MEDS ORDERED: DOXORUBICIN IVPB ONE (12:30)
[2022-07-05 14:36] VITALS: BP 128/75
[2022-07-07] MEDS ORDERED: Ondansetron ODT 4 mg TAB 4 MG TAB PO PRN (11:30)
[2022-07-07] MEDS ORDERED: Ondansetron 4 mg VIAL 2 MG/ML 2 ml VIAL IV PRN (11:30)
[2022-07-07 11:40] LABS: BLYM Result Summary Negative; BLYM Tissue ID S23-2168-B
[2022-07-10 12:42] LABS: Case Number CR-23-14152
== END 2022-07-05 17:20 | disposition home or self-care (01) | DRG 441 ==
LOC: ED 10:35 → EDHOLD 10:35 → SUATTDRO 16:34 → EDHOLD 06-27 10:40 → MEDTELE 06-27 10:58 → MED 06-28 23:13 → ICU 06-30 14:56 → MED 07-01 14:07
PROVIDERS: ADMIT Internal Medicine; ATTEND Internal Medicine

== ENCOUNTER 2022-07-24 09:02 | Inpatient (IN) ==
[~2022-07-24 09:02] MED LIST: APREPITANT 130 MG in Premix IV 0 ML IV SCH
[2022-07-24 09:37] LABS: Hematocrit 26 % (42-52); Hemoglobin 8.9 g/dL (14.0-18.0); Mean Corpuscular Hemoglobin 29 pg (27-31); Mean Corpuscular Hgb Conc 34 g/dL (31-36); Mean Corpuscular Volume 84 fL (80-94); Mean Platelet Volume 7.4 fL (7.4-10.4); Platelet Count 404 10^3/uL (150-450); Red Cell Distribution Width 17 % (10-15); White Blood Count 8.9 10^3/uL (3.5-10.8)
[2022-07-24 09:41] LABS: ABS Neutrophils 7.9 10^3/ul (1.5-7.7)
[2022-07-24 10:03] LABS: Albumin 3.6 g/dL (3.2-5.2); Calcium 8.9 mg/dL (8.6-10.3); Potassium 4.1 mmol/L (3.5-5.0); Total Bilirubin 0.9 mg/dL (0.2-1.0)
[2022-07-24] MEDS ORDERED: Ondansetron 4 mg VIAL 2 MG/ML 2 ml VIAL IV PRN (10:06)
[2022-07-24 10:09] LABS: Albumin/Globulin Ratio 1.7 (1-3); Creatinine, Serum 1.04 mg/dL (0.67-1.17); Globulin 2.1 g/dL (2-4); Total Protein 5.7 g/dL (6.4-8.9); Uric Acid 5.8 mg/dL (4.4-7.6); eGFR CKD-EPI 74.9 (>60)
[2022-07-24 10:43] LABS: Anisocytosis 2+; Polychromasia 2+
[2022-07-24 10:44] LABS: ABS Lymphocytes 0.3 10^3/ul (1.0-4.8); ABS Monocytes 0.6 10^3/ul (0-0.8); Eosinophil % 0.1 %; Lymphocyte % 3.6 %; Nucleated Red Blood Cells % 0.3
[2022-07-24] MEDS ORDERED: Prochlorperazine 5 mg/ml 2 ml VIAL (10 mg) IV PRN (12:20)
[2022-07-24] MEDS ORDERED: APREPITANT 130 MG/18 ML VIAL IV ONE (12:30)
[2022-07-24] MEDS: PALONOSETRON HCL 0.05 MG/ML (0.25 MG) SYRINGE (0.05 MG/ML) IV SCH (13:19)
[2022-07-24] MEDS: methylPREDNISolone SOD SUCC 125 mg 2 ML VIAL IV SCH ×2 (13:23→22:26)
[2022-07-24] MEDS: DOXORUBICIN IVPB SCH (14:10)
[2022-07-24] MEDS: NS 0.9% IVPB SCH (14:10)
[2022-07-24] MEDS: ETOPOSIDE IVPB SCH (14:10)
[2022-07-24] MEDS: VINCRISTINE IVPB SCH (14:10)
[2022-07-24] MEDS: NS 0.9% 1000 ml BAG 1,000 ML IV SCH (22:26)
[2022-07-25] MEDS: Polyethylene Glycol 3350 17 GM PACKET PO PRN (05:35)
[2022-07-25] MEDS: Senna TAB 8.6 mg TAB PO PRN (05:35)
[2022-07-25 05:50] LABS: Hematocrit 22 % (42-52); Hemoglobin 7.3 g/dL (14.0-18.0); Mean Corpuscular Hemoglobin 28 pg (27-31); Mean Corpuscular Hgb Conc 33 g/dL (31-36); Mean Corpuscular Volume 85 fL (80-94); Mean Platelet Volume 7.9 fL (7.4-10.4); Platelet Count 326 10^3/uL (150-450); Red Blood Count 2.61 10^6 /uL (4.18-5.48); Red Cell Distribution Width 17 % (10-15); White Blood Count 7.3 10^3/uL (3.5-10.8)
[2022-07-25 06:09] LABS: Albumin/Globulin Ratio 2.3 (1-3); Calcium 7.3 mg/dL (8.6-10.3); Creatinine, Serum 0.74 mg/dL (0.67-1.17); Globulin 1.3 g/dL (2-4); Total Bilirubin 0.9 mg/dL (0.2-1.0); Total Protein 4.3 g/dL (6.4-8.9); eGFR CKD-EPI 94.5 (>60)
[2022-07-25 06:17] LABS: ABS Lymphocytes 0.2 10^3/ul (1.0-4.8); ABS Monocytes 0.1 10^3/ul (0-0.8); Lymphocyte % 2.7 %; Nucleated Red Blood Cells % 0.1
[2022-07-25] MEDS: Enoxaparin 40 MG/0.4 ML SYR SUBCUT SCH (08:30)
[2022-07-25] MEDS: methylPREDNISolone SOD SUCC 125 mg 2 ML VIAL IV SCH ×2 (08:31→22:19)
[2022-07-25] MEDS: NS 0.9% 1000 ml BAG 1,000 ML IV SCH (12:10)
[2022-07-25] MEDS: Magnesium Hydroxide LIQ 30 ML UDC PO PRN ×2 (12:14→22:17)
[2022-07-25] MEDS: ETOPOSIDE IVPB SCH (14:55)
[2022-07-25] MEDS: NS 0.9% IVPB SCH (14:55)
[2022-07-25] MEDS: DOXORUBICIN IVPB SCH (14:55)
[2022-07-25] MEDS: VINCRISTINE IVPB SCH (14:55)
[2022-07-25] MEDS: PTO: Azelastine 0.1% Nasal (NF) 30 ML BTL BOTH NARES SCH (22:23)
[2022-07-26] MEDS: NS 0.9% 1000 ml BAG 1,000 ML IV SCH ×2 (01:53→14:41)
[2022-07-26] MEDS: Polyethylene Glycol 3350 17 GM PACKET PO PRN (05:50)
[2022-07-26] MEDS: Senna TAB 8.6 mg TAB PO PRN (05:50)
[2022-07-26 06:26] LABS: Hematocrit 22 % (42-52); Hemoglobin 7.3 g/dL (14.0-18.0); Mean Corpuscular Hemoglobin 28 pg (27-31); Mean Corpuscular Hgb Conc 33 g/dL (31-36); Mean Corpuscular Volume 85 fL (80-94); Mean Platelet Volume 7.8 fL (7.4-10.4); Platelet Count 315 10^3/uL (150-450); Red Blood Count 2.57 10^6 /uL (4.18-5.48); Red Cell Distribution Width 18 % (10-15); White Blood Count 10.3 10^3/uL (3.5-10.8)
[2022-07-26 06:34] LABS: ABS Lymphocytes 0.1 10^3/ul (1.0-4.8); ABS Monocytes 0.2 10^3/ul (0-0.8); ABS Neutrophils 9.9 10^3/ul (1.5-7.7); Lymphocyte % 1.3 %
[2022-07-26 06:49] LABS: Albumin 2.9 g/dL (3.2-5.2); Albumin/Globulin Ratio 2.2 (1-3); Calcium 7.3 mg/dL (8.6-10.3); Creatinine, Serum 0.73 mg/dL (0.67-1.17); Globulin 1.3 g/dL (2-4); Potassium 4.1 mmol/L (3.5-5.0); Total Bilirubin 0.7 mg/dL (0.2-1.0); Total Protein 4.2 g/dL (6.4-8.9); eGFR CKD-EPI 94.9 (>60)
[2022-07-26] MEDS: Enoxaparin 40 MG/0.4 ML SYR SUBCUT SCH (08:20)
[2022-07-26] MEDS: methylPREDNISolone SOD SUCC 125 mg 2 ML VIAL IV SCH ×2 (08:21→20:29)
[2022-07-26] MEDS: Magnesium Hydroxide LIQ 30 ML UDC PO PRN ×2 (10:11→20:32)
[2022-07-26] MEDS: PALONOSETRON HCL 0.05 MG/ML (0.25 MG) SYRINGE (0.05 MG/ML) IV SCH (13:43)
[2022-07-26] MEDS: VINCRISTINE IVPB SCH (13:51)
[2022-07-26] MEDS: ETOPOSIDE IVPB SCH (13:51)
[2022-07-26] MEDS: DOXORUBICIN IVPB SCH (13:51)
[2022-07-26] MEDS: NS 0.9% IVPB SCH (13:51)
[2022-07-26] MEDS: PTO: Azelastine 0.1% Nasal (NF) 30 ML BTL BOTH NARES SCH (20:22)
[2022-07-27] MEDS: NS 0.9% 1000 ml BAG 1,000 ML IV SCH ×2 (04:07→19:45)
[2022-07-27 06:10] LABS: ABS Lymphocytes 0.1 10^3/ul (1.0-4.8); ABS Monocytes 0.1 10^3/ul (0-0.8); ABS Neutrophils 5.2 10^3/ul (1.5-7.7); Hematocrit 20 % (42-52); Hemoglobin 6.8 g/dL (14.0-18.0); Lymphocyte % 2.3 %; Mean Corpuscular Hemoglobin 29 pg (27-31); Mean Corpuscular Hgb Conc 34 g/dL (31-36); Mean Corpuscular Volume 87 fL (80-94); Mean Platelet Volume 7.4 fL (7.4-10.4); Platelet Count 261 10^3/uL (150-450); Red Blood Count 2.33 10^6 /uL (4.18-5.48); Red Cell Distribution Width 18 % (10-15); White Blood Count 5.4 10^3/uL (3.5-10.8)
[2022-07-27 06:19] LABS: Albumin 2.7 g/dL (3.2-5.2); Calcium 6.9 mg/dL (8.6-10.3); Total Bilirubin 0.7 mg/dL (0.2-1.0)
[2022-07-27 06:25] LABS: Albumin/Globulin Ratio 1.9 (1-3); Creatinine, Serum 0.65 mg/dL (0.67-1.17); Globulin 1.4 g/dL (2-4); Total Protein 4.1 g/dL (6.4-8.9); eGFR CKD-EPI 98.3 (>60)
[2022-07-27] MEDS: Enoxaparin 40 MG/0.4 ML SYR SUBCUT SCH (08:14)
[2022-07-27] MEDS: methylPREDNISolone SOD SUCC 125 mg 2 ML VIAL IV SCH ×2 (08:15→22:01)
[2022-07-27] MEDS: Senna TAB 8.6 mg TAB PO PRN (08:26)
[2022-07-27] MEDS: Polyethylene Glycol 3350 17 GM PACKET PO PRN (08:26)
[2022-07-27] MEDS: NS 0.9% IVPB SCH (12:58)
[2022-07-27] MEDS: DOXORUBICIN IVPB SCH (12:58)
[2022-07-27] MEDS: VINCRISTINE IVPB SCH (12:58)
[2022-07-27] MEDS: ETOPOSIDE IVPB SCH (12:58)
[2022-07-27 17:56] LABS: ABS Lymphocytes 0.1 10^3/ul (1.0-4.8); ABS Monocytes 0.1 10^3/ul (0-0.8); ABS Neutrophils 5.7 10^3/ul (1.5-7.7); Hematocrit 24 % (42-52); Hemoglobin 8.4 g/dL (14.0-18.0); Mean Corpuscular Hemoglobin 30 pg (27-31); Mean Corpuscular Hgb Conc 35 g/dL (31-36); Mean Corpuscular Volume 86 fL (80-94); Mean Platelet Volume 7.5 fL (7.4-10.4); Platelet Count 303 10^3/uL (150-450); Red Blood Count 2.83 10^6 /uL (4.18-5.48); Red Cell Distribution Width 19 % (10-15)
[2022-07-27] MEDS: PTO: Azelastine 0.1% Nasal (NF) 30 ML BTL BOTH NARES SCH (21:59)
[2022-07-28] MEDS ORDERED: Calcium Carb (TUMS) 500 mg CHEW TAB PO PRN (01:27)
[2022-07-28 09:50] VITALS: BP 132/80
[2022-07-28] MEDS: Enoxaparin 40 MG/0.4 ML SYR SUBCUT SCH (10:11)
[2022-07-28] MEDS: NS 0.9% 1000 ml BAG 1,000 ML IV SCH (10:23)
[2022-07-28 10:36] LABS: ABS Lymphocytes 0.2 10^3/ul (1.0-4.8); ABS Neutrophils 3.7 10^3/ul (1.5-7.7); Hematocrit 25 % (42-52); Hemoglobin 8.4 g/dL (14.0-18.0); Lymphocyte % 4.4 %; Mean Corpuscular Hemoglobin 28 pg (27-31); Mean Corpuscular Hgb Conc 33 g/dL (31-36); Mean Corpuscular Volume 85 fL (80-94); Mean Platelet Volume 7.3 fL (7.4-10.4); Platelet Count 333 10^3/uL (150-450); Red Blood Count 2.97 10^6 /uL (4.18-5.48); Red Cell Distribution Width 20 % (10-15); White Blood Count 3.9 10^3/uL (3.5-10.8)
[2022-07-28 10:58] LABS: Albumin 3.1 g/dL (3.2-5.2); Albumin/Globulin Ratio 2.1 (1-3); Calcium 7.7 mg/dL (8.6-10.3); Creatinine, Serum 0.67 mg/dL (0.67-1.17); Globulin 1.5 g/dL (2-4); Potassium 4.1 mmol/L (3.5-5.0); Total Bilirubin 0.8 mg/dL (0.2-1.0); Total Protein 4.6 g/dL (6.4-8.9); eGFR CKD-EPI 97.4 (>60)
[2022-07-28] MEDS ORDERED: NS 0.9% IVPB ONE (12:30)
[2022-07-28] MEDS ORDERED: CYCLOPHOSPHAMIDE IVPB ONE (12:30)
== END 2022-07-28 14:10 | disposition home or self-care (01) | DRG 847 ==
LOC: CHOA 09:02 → MED 17:51 → SUATTDRO 17:51
PROVIDERS: ADMIT Internal Medicine Hematology & Oncology; ATTEND Internal Medicine Hematology & Oncology

== ENCOUNTER 2022-08-23 23:06 | Inpatient (IN) ==
[2022-08-23] MEDS ORDERED: Ondansetron 4 mg VIAL 2 MG/ML 2 ml VIAL IV ONE (23:11)
[2022-08-23] MEDS ORDERED: Ondansetron 4 mg VIAL 2 MG/ML 2 ml VIAL ONE (23:12)
[2022-08-23] MEDS ORDERED: Lactated Ringers 1000 ml BAG 1,000 ML IV ONE (23:15)
[2022-08-23 23:51] LABS: Activated Partial Thrombo Time 27.8 seconds (26.0-38.0); INR 1.12 (0.88-1.18)
[2022-08-24 00:01] LABS: Hematocrit 23.3 % (38-53); Hemoglobin 7.8 g/dL (13.2-16.3); Mean Corpuscular Hgb Conc 33.3 g/dL (31-36); Mean Corpuscular Volume 83.9 fL (80-97); Mean Platelet Volume 8.1 fL (7.5-11.2); Platelet Count 70 10^3/uL (150-450); Red Blood Count 2.77 10^6/uL (4.06-5.63); Red Cell Distribution Width 20.5 % (12-17); White Blood Count 0.3 10^3/uL (3.6-10.2)
[2022-08-24 00:20] LABS: Albumin 3.1 g/dL (3.2-5.2); Albumin/Globulin Ratio 2.2 (1-3); C Reactive Protein 19.19 mg/L (<8.01); Calcium 8.5 mg/dL (8.6-10.3); Creatinine, Serum 0.94 mg/dL (0.67-1.17); Globulin 1.4 g/dL (2-4); Potassium 3.7 mmol/L (3.5-5.0); Total Bilirubin 0.6 mg/dL (0.2-1.0); Total Protein 4.5 g/dL (6.4-8.9); eGFR CKD-EPI 84.5 (>60)
[2022-08-24 00:46] LABS: High Sensitivity Troponin 1 Hr 4 pg/mL (<20)
[2022-08-24 00:55] LABS: ABS Lymphocytes 0.3 10^3/uL (1.0-4.8); Eosinophil % 12.4 %; Lymphocyte % 81.8 %; Nucleated Red Blood Cells % 0.7 /100 WBC (0.0-0.4)
[2022-08-24] MEDS ORDERED: Iohexol 350 (CONTRAST) 500 ML MDV IV ONE (02:18)
[2022-08-24] MEDS ORDERED: Al Hydrox/Mg Hydrox/Simet LIQ 30 ML UDC PO PRN (05:23)
[2022-08-24] MEDS ORDERED: Senna TAB 8.6 mg TAB PO PRN (05:28)
[2022-08-24 06:06] LABS: Urine Appearance Cloudy; Urine Bilirubin Negative (Negative); Urine Blood Negative (Negative); Urine Color Yellow; Urine Glucose Negative (Negative); Urine Ketones Negative (Negative); Urine Nitrite Negative (Negative); Urine Protein Negative (Negative); Urine Specific Gravity 1.031 (1.002-1.030); Urine Urobilinogen Negative (Negative)
[2022-08-24] MEDS: Heparin 5000 UNITS/ML 1 mL VIAL SUBCUT SCH ×3 (06:26→20:32)
[2022-08-24] MEDS ORDERED: NS 0.9% 250 ml 250 ML IV ONE (06:35)
[2022-08-24] MEDS: Senna TAB 8.6 mg TAB PO PRN (09:07)
[2022-08-24 12:56] LABS: Magnesium 1.7 mg/dL (1.9-2.7)
[2022-08-24] MEDS ORDERED: Lactated Ringers 1000 ml BAG 1,000 ML IV ONE (14:58)
[2022-08-24] MEDS: Cholecalciferol (VIT D3) 1,000 unit TAB PO SCH (20:27)
[2022-08-25] MEDS: Heparin 5000 UNITS/ML 1 mL VIAL SUBCUT SCH ×3 (04:47→21:40)
[2022-08-25 05:07] LABS: Hematocrit 22.4 % (38-53); Hemoglobin 7.9 g/dL (13.2-16.3); Mean Corpuscular Volume 82.7 fL (80-97); Mean Platelet Volume 7.6 fL (7.5-11.2); Platelet Count 38 10^3/uL (150-450); Red Blood Count 2.71 10^6/uL (4.06-5.63); Red Cell Distribution Width 19.5 % (12-17); White Blood Count 0.2 10^3/uL (3.6-10.2)
[2022-08-25 05:39] LABS: Calcium 8.1 mg/dL (8.6-10.3); Creatinine, Serum 0.89 mg/dL (0.67-1.17); Potassium 4.2 mmol/L (3.5-5.0); eGFR CKD-EPI 89.4 (>60)
[2022-08-25 05:40] LABS: Magnesium 1.5 mg/dL (1.9-2.7)
[2022-08-25 06:03] LABS: ABS Lymphocytes 0.1 10^3/uL (1.0-4.8); Lymphocyte % 73.9 %
[2022-08-25] MEDS ORDERED: Magnesium Sulf 4 GM/100 ML IV 4,000 MG/100 ML BAG IVPB ONE (07:30)
[2022-08-25] MEDS: Magnesium Hydroxide LIQ 30 ML UDC PO PRN (09:05)
[2022-08-25] MEDS: Sulfamethox/Trimethoprim DS TAB 800/160 mg PO SCH (09:07)
[2022-08-25] MEDS ORDERED: Alteplase (CATHFLO) 2 MG VIAL IV ONE (11:15)
[2022-08-25] MEDS: Cholecalciferol (VIT D3) 1,000 unit TAB PO SCH (21:37)
[2022-08-25] MEDS: NON FORMULARY MED (Azelastine 137 mcg (0.1 %) Aerosol,Spray) INTRANASAL SCH (21:41)
[2022-08-26] MEDS: Magnesium Hydroxide LIQ 30 ML UDC PO PRN ×2 (02:52→10:02)
[2022-08-26] MEDS: Senna TAB 8.6 mg TAB PO PRN ×3 (02:55→20:32)
[2022-08-26] MEDS: Heparin 5000 UNITS/ML 1 mL VIAL SUBCUT SCH (05:48)
[2022-08-26 06:33] LABS: Hematocrit 24.4 % (38-53); Hemoglobin 8.6 g/dL (13.2-16.3); Mean Corpuscular Hemoglobin 29.7 pg (27-33); Mean Corpuscular Hgb Conc 35.3 g/dL (31-36); Mean Platelet Volume 8.8 fL (7.5-11.2); Platelet Count 20 10^3/uL (150-450); Red Cell Distribution Width 18.5 % (12-17); White Blood Count 0.1 10^3/uL (3.6-10.2)
[2022-08-26 06:54] LABS: Creatinine, Serum 1.01 mg/dL (0.67-1.17); Magnesium 1.8 mg/dL (1.9-2.7); eGFR CKD-EPI 77.6 (>60)
[2022-08-26 08:30] LABS: ABS Lymphocytes 0.1 10^3/uL (1.0-4.8); Eosinophil % 9.6 %; Lymphocyte % 76.2 %; Nucleated Red Blood Cells % 0.9 /100 WBC (0.0-0.4)
[2022-08-26 12:29] LABS: Urine Appearance Turbid; Urine Bilirubin Negative (Negative); Urine Blood Negative (Negative); Urine Color Yellow; Urine Glucose Negative (Negative); Urine Ketones Negative (Negative); Urine Nitrite Negative (Negative); Urine Protein Negative (Negative); Urine Specific Gravity 1.015 (1.002-1.030); Urine Urobilinogen Negative (Negative)
[2022-08-26] MEDS: Cefepime 2 GM in Dextrose 2 GM/50 ML BAG IV SCH ×2 (15:02→20:48)
[2022-08-26] MEDS: Polyethylene Glycol 3350 17 GM PACKET PO SCH (15:02)
[2022-08-26] MEDS: Cholecalciferol (VIT D3) 1,000 unit TAB PO SCH (20:31)
[2022-08-26] MEDS: NON FORMULARY MED (Azelastine 137 mcg (0.1 %) Aerosol,Spray) INTRANASAL SCH (20:34)
[2022-08-26] MEDS ORDERED: Acetaminophen IV 1 GM/100ML 1,000 MG/100 ML BAG IV ONE (21:32)
[2022-08-27] MEDS: Cefepime 2 GM in Dextrose 2 GM/50 ML BAG IV SCH ×3 (05:25→22:16)
[2022-08-27 05:51] LABS: Mean Platelet Volume 8.9 fL (7.5-11.2); Platelet Count 17 10^3/uL (150-450)
[2022-08-27 08:11] LABS: Hematocrit 22.5 % (38-53); Hemoglobin 7.9 g/dL (13.2-16.3); Mean Corpuscular Hemoglobin 29.5 pg (27-33); Mean Corpuscular Hgb Conc 35.1 g/dL (31-36); Mean Corpuscular Volume 83.9 fL (80-97); Red Blood Count 2.68 10^6/uL (4.06-5.63); Red Cell Distribution Width 18.9 % (12-17); White Blood Count 0.1 10^3/uL (3.6-10.2)
[2022-08-27 10:16] LABS: ABS Lymphocytes 0.1 10^3/uL (1.0-4.8); Eosinophil % 6.4 %; Lymphocyte % 57.7 %
[2022-08-27] MEDS: Polyethylene Glycol 3350 17 GM PACKET PO SCH (10:30)
[2022-08-27] MEDS: Senna TAB 8.6 mg TAB PO PRN (10:32)
[2022-08-27] MEDS: Cholecalciferol (VIT D3) 1,000 unit TAB PO SCH (22:15)
[2022-08-27] MEDS: Azelastine 0.1% Nasal (NF) 30 ML BTL BOTH NARES SCH (22:15)
[2022-08-28] MEDS: Cefepime 2 GM in Dextrose 2 GM/50 ML BAG IV SCH ×3 (06:37→22:42)
[2022-08-28 06:48] LABS: Hematocrit 22.4 % (38-53); Hemoglobin 7.9 g/dL (13.2-16.3); Mean Corpuscular Hemoglobin 29.2 pg (27-33); Mean Corpuscular Hgb Conc 35.2 g/dL (31-36); Mean Corpuscular Volume 83.1 fL (80-97); Mean Platelet Volume 9.4 fL (7.5-11.2); Platelet Count 23 10^3/uL (150-450); Red Blood Count 2.69 10^6/uL (4.06-5.63); Red Cell Distribution Width 18.2 % (12-17); White Blood Count 0.4 10^3/uL (3.6-10.2)
[2022-08-28 07:14] LABS: ABS Lymphocytes 0.2 10^3/uL (1.0-4.8); ABS Monocytes 0.2 10^3/uL (0.0-1.1); ABS Neutrophils 0.1 10^3/uL (1.5-7.6); Eosinophil % 2.3 %; Lymphocyte % 36.2 %; Nucleated Red Blood Cells % 0.6 /100 WBC (0.0-0.4)
[2022-08-28] MEDS: Polyethylene Glycol 3350 17 GM PACKET PO SCH (09:31)
[2022-08-28] MEDS: Sulfamethox/Trimethoprim DS TAB 800/160 mg PO SCH (10:15)
[2022-08-28] MEDS ORDERED: Magic MouthWash2-BEN/MAAL/LIDO/NYST 240 ML BTL (alt formulation) SWISH SPIT SCH (13:00)
[2022-08-28] MEDS: Magic MW-DIPH/MAG-AL-SIME/LIDO FIRST BLM KIT SWISH SPIT SCH ×3 (13:58→21:17)
[2022-08-28] MEDS: Cholecalciferol (VIT D3) 1,000 unit TAB PO SCH (21:13)
[2022-08-28] MEDS: Azelastine 0.1% Nasal (NF) 30 ML BTL BOTH NARES SCH (21:13)
[2022-08-28] MEDS: Magnesium Hydroxide LIQ 30 ML UDC PO PRN (21:22)
[2022-08-29] MEDS: Cefepime 2 GM in Dextrose 2 GM/50 ML BAG IV SCH ×3 (05:07→21:22)
[2022-08-29 07:11] LABS: ABS Neutrophils 0.5 10^3/uL (1.5-7.6); Hematocrit 22.7 % (38-53); Mean Corpuscular Hemoglobin 29.4 pg (27-33); Mean Corpuscular Hgb Conc 35.2 g/dL (31-36); Mean Corpuscular Volume 83.6 fL (80-97); Mean Platelet Volume 8.5 fL (7.5-11.2); Platelet Count 36 10^3/uL (150-450); Red Blood Count 2.71 10^6/uL (4.06-5.63); Red Cell Distribution Width 18.3 % (12-17)
[2022-08-29 08:34] LABS: ABS Lymphocytes 0.2 10^3/uL (1.0-4.8); ABS Monocytes 0.3 10^3/uL (0.0-1.1); Anisocytosis 1+; Eosinophil % 0.5 %; Lymphocyte % 20.4 %; Nucleated Red Blood Cells % 0.1 /100 WBC (0.0-0.4)
[2022-08-29] MEDS: Magic MW-DIPH/MAG-AL-SIME/LIDO FIRST BLM KIT SWISH SPIT SCH ×4 (08:40→20:02)
[2022-08-29] MEDS: Polyethylene Glycol 3350 17 GM PACKET PO SCH (08:41)
[2022-08-29] MEDS ORDERED: Magnesium Sulfate 2 gm BAG 2 GM/50 ML BAG IVPB ONE (10:14)
[2022-08-29] MEDS ORDERED: NS 0.9% 1000 ml BAG 1,000 ML IV SCH (10:15)
[2022-08-29] MEDS: Cholecalciferol (VIT D3) 1,000 unit TAB PO SCH (20:02)
[2022-08-29] MEDS: Azelastine 0.1% Nasal (NF) 30 ML BTL BOTH NARES SCH (21:15)
[2022-08-30] MEDS: Cefepime 2 GM in Dextrose 2 GM/50 ML BAG IV SCH (06:19)
[2022-08-30 06:32] LABS: ABS Lymphocytes 0.2 10^3/uL (1.0-4.8); ABS Monocytes 0.4 10^3/uL (0.0-1.1); ABS Neutrophils 1.1 10^3/uL (1.5-7.6); Eosinophil % 0.2 %; Hematocrit 21.6 % (38-53); Hemoglobin 7.6 g/dL (13.2-16.3); Lymphocyte % 13.9 %; Mean Corpuscular Hemoglobin 28.5 pg (27-33); Mean Corpuscular Volume 81.3 fL (80-97); Mean Platelet Volume 7.5 fL (7.5-11.2); Nucleated Red Blood Cells % 0.3 /100 WBC (0.0-0.4); Platelet Count 59 10^3/uL (150-450); Red Blood Count 2.65 10^6/uL (4.06-5.63); Red Cell Distribution Width 18.3 % (12-17); White Blood Count 1.7 10^3/uL (3.6-10.2)
[2022-08-30 06:51] LABS: Albumin 3.1 g/dL (3.2-5.2)
[2022-08-30 06:52] LABS: Calcium 7.9 mg/dL (8.6-10.3); Potassium 4.1 mmol/L (3.5-5.0); Total Bilirubin 0.5 mg/dL (0.2-1.0)
[2022-08-30 06:57] LABS: Albumin/Globulin Ratio 2.1 (1-3); Globulin 1.5 g/dL (2-4); Total Protein 4.6 g/dL (6.4-8.9)
[2022-08-30 07:08] LABS: Creatinine, Serum 0.77 mg/dL (0.67-1.17); eGFR CKD-EPI 93.4 (>60)
[2022-08-30] MEDS: Polyethylene Glycol 3350 17 GM PACKET PO SCH (09:30)
[2022-08-30] MEDS: Magic MW-DIPH/MAG-AL-SIME/LIDO FIRST BLM KIT SWISH SPIT SCH (09:30)
[2022-08-30 10:54] VITALS: BP 110/74
[2022-08-30] MEDS: Sulfamethox/Trimethoprim DS TAB 800/160 mg PO SCH (12:04)
== END 2022-08-30 11:42 | disposition home or self-care (01) | DRG 640 ==
LOC: EDHOLD 23:06 → ED 23:06 → SUATTDRO 08-24 05:27 → EDHOLD 08-24 14:18 → MEDTELE 08-24 15:33 → SUATTDRO 08-25 13:00
PROVIDERS: ADMIT Internal Medicine; ATTEND Internal Medicine

== ENCOUNTER 2022-09-11 09:43 | Inpatient (IN) ==
[2022-09-11] MEDS ORDERED: Enoxaparin 40 MG/0.4 ML SYR SUBCUT SCH (10:00)
[2022-09-11] MEDS ORDERED: Sterile Water for Inj 10 ML ONE (10:25)
[2022-09-11] MEDS ORDERED: Alteplase (CATHFLO) 2 MG VIAL ONE (10:25)
[2022-09-11 10:43] LABS: ABS Lymphocytes 0.7 10^3/uL (1.0-4.8); ABS Monocytes 0.2 10^3/uL (0.0-1.1); ABS Neutrophils 3.3 10^3/uL (1.5-7.6); Eosinophil % 0.1 %; Hematocrit 31.9 % (38-53); Hemoglobin 10.9 g/dL (13.2-16.3); Lymphocyte % 16.8 %; Mean Corpuscular Hemoglobin 30.1 pg (27-33); Mean Corpuscular Hgb Conc 34.1 g/dL (31-36); Mean Corpuscular Volume 88.1 fL (80-97); Mean Platelet Volume 7.5 fL (7.5-11.2); Platelet Count 197 10^3/uL (150-450); Red Blood Count 3.63 10^6/uL (4.06-5.63); Red Cell Distribution Width 22.3 % (12-17); White Blood Count 4.3 10^3/uL (3.6-10.2)
[2022-09-11] MEDS ORDERED: Senna TAB 8.6 mg TAB PO PRN (10:46)
[2022-09-11 10:58] LABS: Albumin 3.6 g/dL (3.2-5.2); Calcium 8.7 mg/dL (8.6-10.3); Magnesium 1.7 mg/dL (1.9-2.7); Potassium 3.9 mmol/L (3.5-5.0); Total Bilirubin 0.6 mg/dL (0.2-1.0)
[2022-09-11 11:04] LABS: Albumin/Globulin Ratio 1.6 (1-3); Globulin 2.2 g/dL (2-4); Total Protein 5.8 g/dL (6.4-8.9); eGFR CKD-EPI 78.5 (>60)
[2022-09-11] MEDS ORDERED: methylPREDNISolone SOD SUCC 125 mg 2 ML VIAL ONE (12:17)
[2022-09-11] MEDS ORDERED: PALONOSETRON HCL 0.05 MG/ML (0.25 MG) SYRINGE (0.05 MG/ML) ONE (12:17)
[2022-09-11] MEDS: NS 0.9% IVPB SCH (14:19)
[2022-09-11] MEDS: ETOPOSIDE IVPB SCH (14:19)
[2022-09-11] MEDS: VINCRISTINE IVPB SCH (14:19)
[2022-09-11] MEDS: DOXORUBICIN IVPB SCH (14:19)
[2022-09-11] MEDS: Sulfamethox/Trimethoprim DS TAB 800/160 mg PO SCH (14:29)
[2022-09-11] MEDS: Enoxaparin 40 MG/0.4 ML SYR SUBCUT SCH (17:20)
[2022-09-11] MEDS: PTO: Azelastine 0.1% Nasal (NF) 30 ML BTL BOTH NARES SCH (20:35)
[2022-09-11] MEDS: methylPREDNISolone SOD SUCC 125 mg 2 ML VIAL IV SCH (20:35)
[2022-09-11] MEDS: Cholecalciferol (VIT D3) 1,000 unit TAB PO SCH (20:37)
[2022-09-11] MEDS: Al Hydrox/Mg Hydrox/Simet LIQ 30 ML UDC PO PRN (20:45)
[2022-09-12 06:07] LABS: ABS Lymphocytes 0.4 10^3/uL (1.0-4.8); ABS Monocytes 0.1 10^3/uL (0.0-1.1); ABS Neutrophils 5.2 10^3/uL (1.5-7.6); ABS Nucleated RBC 0.01 10^3/ul; Hematocrit 30.7 % (38-53); Hemoglobin 10.6 g/dL (13.2-16.3); Lymphocyte % 7.6 %; Mean Corpuscular Hemoglobin 29.7 pg (27-33); Mean Corpuscular Hgb Conc 34.6 g/dL (31-36); Mean Corpuscular Volume 85.9 fL (80-97); Mean Platelet Volume 7.8 fL (7.5-11.2); Nucleated Red Blood Cells % 0.1 /100 WBC (0.0-0.4); Platelet Count 192 10^3/uL (150-450); Red Blood Count 3.58 10^6/uL (4.06-5.63); Red Cell Distribution Width 21.2 % (12-17); White Blood Count 5.7 10^3/uL (3.6-10.2)
[2022-09-12 06:49] LABS: Albumin 3.6 g/dL (3.2-5.2); Albumin/Globulin Ratio 1.9 (1-3); Calcium 8.5 mg/dL (8.6-10.3); Creatinine, Serum 0.79 mg/dL (0.67-1.17); Globulin 1.9 g/dL (2-4); Magnesium 1.8 mg/dL (1.9-2.7); Potassium 4.4 mmol/L (3.5-5.0); Total Bilirubin 0.7 mg/dL (0.2-1.0); Total Protein 5.5 g/dL (6.4-8.9); eGFR CKD-EPI 92.6 (>60)
[2022-09-12] MEDS: methylPREDNISolone SOD SUCC 125 mg 2 ML VIAL IV SCH ×2 (09:13→21:18)
[2022-09-12] MEDS: Polyethylene Glycol 3350 17 GM PACKET PO SCH (10:12)
[2022-09-12] MEDS: Senna TAB 8.6 mg TAB PO SCH ×2 (10:13→21:16)
[2022-09-12] MEDS: ETOPOSIDE IVPB SCH (14:40)
[2022-09-12] MEDS: VINCRISTINE IVPB SCH (14:40)
[2022-09-12] MEDS: DOXORUBICIN IVPB SCH (14:40)
[2022-09-12] MEDS: NS 0.9% IVPB SCH (14:40)
[2022-09-12] MEDS: Enoxaparin 40 MG/0.4 ML SYR SUBCUT SCH (17:30)
[2022-09-12] MEDS: Al Hydrox/Mg Hydrox/Simet LIQ 30 ML UDC PO PRN (17:36)
[2022-09-12] MEDS: Cholecalciferol (VIT D3) 1,000 unit TAB PO SCH (21:15)
[2022-09-12] MEDS: PTO: Azelastine 0.1% Nasal (NF) 30 ML BTL BOTH NARES SCH (22:27)
[2022-09-13 06:33] LABS: Albumin 3.4 g/dL (3.2-5.2); Albumin/Globulin Ratio 2.1 (1-3); Calcium 8.4 mg/dL (8.6-10.3); Creatinine, Serum 0.72 mg/dL (0.67-1.17); Globulin 1.6 g/dL (2-4); Magnesium 1.9 mg/dL (1.9-2.7); Potassium 4.2 mmol/L (3.5-5.0); Total Bilirubin 0.5 mg/dL (0.2-1.0); eGFR CKD-EPI 95.3 (>60)
[2022-09-13] MEDS ORDERED: PALONOSETRON HCL 0.05 MG/ML (0.25 MG) SYRINGE (0.05 MG/ML) IV ONE (08:00)
[2022-09-13] MEDS: methylPREDNISolone SOD SUCC 125 mg 2 ML VIAL IV SCH ×2 (08:12→21:32)
[2022-09-13] MEDS: Polyethylene Glycol 3350 17 GM PACKET PO SCH (08:14)
[2022-09-13] MEDS: Senna TAB 8.6 mg TAB PO SCH ×2 (08:15→21:29)
[2022-09-13] MEDS: Sulfamethox/Trimethoprim DS TAB 800/160 mg PO SCH (11:19)
[2022-09-13] MEDS: VINCRISTINE IVPB SCH (15:24)
[2022-09-13] MEDS: NS 0.9% IVPB SCH (15:24)
[2022-09-13] MEDS: DOXORUBICIN IVPB SCH (15:24)
[2022-09-13] MEDS: ETOPOSIDE IVPB SCH (15:24)
[2022-09-13] MEDS: Enoxaparin 40 MG/0.4 ML SYR SUBCUT SCH (16:53)
[2022-09-13] MEDS: PTO: Azelastine 0.1% Nasal (NF) 30 ML BTL BOTH NARES SCH (21:31)
[2022-09-13] MEDS: Cholecalciferol (VIT D3) 1,000 unit TAB PO SCH (21:31)
[2022-09-14 06:00] LABS: ABS Lymphocytes 0.2 10^3/uL (1.0-4.8); ABS Monocytes 0.1 10^3/uL (0.0-1.1); ABS Neutrophils 5.6 10^3/uL (1.5-7.6); Hematocrit 27.1 % (38-53); Hemoglobin 9.6 g/dL (13.2-16.3); Lymphocyte % 4.1 %; Mean Corpuscular Hemoglobin 30.3 pg (27-33); Mean Corpuscular Hgb Conc 35.3 g/dL (31-36); Mean Corpuscular Volume 85.7 fL (80-97); Mean Platelet Volume 7.5 fL (7.5-11.2); Platelet Count 131 10^3/uL (150-450); Red Blood Count 3.16 10^6/uL (4.06-5.63); Red Cell Distribution Width 21.8 % (12-17); White Blood Count 5.9 10^3/uL (3.6-10.2)
[2022-09-14 06:13] LABS: Albumin 3.1 g/dL (3.2-5.2); Calcium 8.2 mg/dL (8.6-10.3); Magnesium 1.8 mg/dL (1.9-2.7); Total Bilirubin 0.6 mg/dL (0.2-1.0)
[2022-09-14] MEDS ORDERED: Magnesium Sulfate IV 1GM/100ML 1 GM/100 ML BAG IV ONE (06:16)
[2022-09-14 06:19] LABS: Albumin/Globulin Ratio 1.8 (1-3); Creatinine, Serum 0.71 mg/dL (0.67-1.17); Globulin 1.7 g/dL (2-4); Total Protein 4.8 g/dL (6.4-8.9); eGFR CKD-EPI 95.7 (>60)
[2022-09-14] MEDS: methylPREDNISolone SOD SUCC 125 mg 2 ML VIAL IV SCH ×2 (09:28→20:21)
[2022-09-14] MEDS: Polyethylene Glycol 3350 17 GM PACKET PO SCH (09:28)
[2022-09-14] MEDS: Senna TAB 8.6 mg TAB PO SCH ×2 (09:29→20:20)
[2022-09-14] MEDS: NS 0.9% IVPB SCH (13:40)
[2022-09-14] MEDS: VINCRISTINE IVPB SCH (13:40)
[2022-09-14] MEDS: ETOPOSIDE IVPB SCH (13:40)
[2022-09-14] MEDS: DOXORUBICIN IVPB SCH (13:40)
[2022-09-14] MEDS: Enoxaparin 40 MG/0.4 ML SYR SUBCUT SCH (16:59)
[2022-09-14] MEDS: Cholecalciferol (VIT D3) 1,000 unit TAB PO SCH (20:21)
[2022-09-14] MEDS: PTO: Azelastine 0.1% Nasal (NF) 30 ML BTL BOTH NARES SCH (20:29)
[2022-09-14] MEDS ORDERED: Magnesium Hydroxide LIQ 30 ML UDC PO PRN (20:54)
[2022-09-15 06:02] LABS: ABS Lymphocytes 0.3 10^3/uL (1.0-4.8); ABS Monocytes 0.1 10^3/uL (0.0-1.1); Hematocrit 26.8 % (38-53); Hemoglobin 9.4 g/dL (13.2-16.3); Lymphocyte % 6.1 %; Mean Corpuscular Hemoglobin 30.5 pg (27-33); Mean Corpuscular Volume 87.2 fL (80-97); Mean Platelet Volume 7.3 fL (7.5-11.2); Platelet Count 118 10^3/uL (150-450); Red Blood Count 3.07 10^6/uL (4.06-5.63); Red Cell Distribution Width 21.5 % (12-17); White Blood Count 5.3 10^3/uL (3.6-10.2)
[2022-09-15 06:16] LABS: Total Bilirubin 0.6 mg/dL (0.2-1.0)
[2022-09-15 06:22] LABS: Albumin/Globulin Ratio 1.9 (1-3); Creatinine, Serum 0.68 mg/dL (0.67-1.17); Globulin 1.6 g/dL (2-4); Total Protein 4.6 g/dL (6.4-8.9); eGFR CKD-EPI 96.9 (>60)
[2022-09-15] MEDS ORDERED: Alendronate 70 mg TAB (NF) PO SCH (09:00)
[2022-09-15] MEDS: Polyethylene Glycol 3350 17 GM PACKET PO SCH (09:28)
[2022-09-15] MEDS: Senna TAB 8.6 mg TAB PO SCH (09:29)
[2022-09-15 10:17] VITALS: BP 134/67
[2022-09-15] MEDS: Sulfamethox/Trimethoprim DS TAB 800/160 mg PO SCH (13:04)
[2022-09-15] MEDS ORDERED: NS 0.9% IVPB ONE (13:30)
[2022-09-15] MEDS ORDERED: CYCLOPHOSPHAMIDE IVPB ONE (13:30)
[2022-09-15] MEDS ORDERED: NS 0.9% 1000 ml BAG 1,000 ML IV ONE (14:00)
== END 2022-09-15 16:09 | disposition home or self-care (01) | DRG 847 ==
LOC: CHOA 09:43 → SSU 09:52 → MEDTELE 09-12 15:02
PROVIDERS: ADMIT Internal Medicine Hematology & Oncology; ATTEND Internal Medicine Hematology & Oncology

== ENCOUNTER 2022-10-30 08:08 | Inpatient (IN) ==
[~2022-10-30 08:08] MED LIST changes: +NS 0.9% IVPB SCH; +RITUXIMAB IVPB SCH
[2022-10-30 08:32] LABS: Hemoglobin 11.1 g/dL (13.2-16.3); Mean Corpuscular Hgb Conc 34.8 g/dL (31-36); Mean Platelet Volume 7.7 fL (7.5-11.2); Platelet Count 132 10^3/uL (150-450); Red Cell Distribution Width 21.4 % (12-17)
[2022-10-30 08:37] LABS: ABS Neutrophils 1.6 10^3/uL (1.5-7.6)
[2022-10-30 08:56] LABS: Albumin 3.9 g/dL (3.2-5.2); Albumin/Globulin Ratio 2.2 (1-3); Calcium 9.1 mg/dL (8.6-10.3); Creatinine, Serum 1.01 mg/dL (0.67-1.17); Globulin 1.8 g/dL (2-4); Magnesium 1.8 mg/dL (1.9-2.7); Total Bilirubin 0.5 mg/dL (0.2-1.0); Total Protein 5.7 g/dL (6.4-8.9); eGFR CKD-EPI 77.6 (>60)
[2022-10-30 09:57] LABS: Potassium 3.9 mmol/L (3.5-5.0)
[2022-10-30 10:03] LABS: ABS Lymphocytes 0.9 10^3/uL (1.0-4.8); ABS Monocytes 0.5 10^3/uL (0.0-1.1); ABS Nucleated RBC 0.01 10^3/ul; Eosinophil % 0.2 %; Lymphocyte % 29.8 %; Nucleated Red Blood Cells % 0.4 /100 WBC (0.0-0.4)
[2022-10-30] MEDS ORDERED: diphenhydrAMINE 50 MG/ML INJ SYRINGE *CHOA ONE (10:11)
[2022-10-30] MEDS ORDERED: methylPREDNISolone SOD SUCC 125 mg 2 ML VIAL ONE (10:11)
[2022-10-30] MEDS ORDERED: Famotidine IV 10 MG/ML 2 ml VIAL (20 mg) ONE (10:11)
[2022-10-30] MEDS ORDERED: PALONOSETRON HCL 0.05 MG/ML (0.25 MG) SYRINGE (0.05 MG/ML) ONE (10:11)
[2022-10-30] MEDS ORDERED: Al Hydrox/Mg Hydrox/Simet LIQ 30 ML UDC PO PRN (12:16)
[2022-10-30] MEDS ORDERED: Magnesium Hydroxide LIQ 30 ML UDC PO PRN (12:16)
[2022-10-30] MEDS ORDERED: Senna TAB 8.6 mg TAB PO PRN (12:16)
[2022-10-30] MEDS: NS 0.9% IVPB SCH (15:12)
[2022-10-30] MEDS: ETOPOSIDE IVPB SCH (15:12)
[2022-10-30] MEDS: DOXORUBICIN IVPB SCH (15:12)
[2022-10-30] MEDS ORDERED: Ondansetron ODT 4 mg TAB 4 MG TAB PO PRN (15:31)
[2022-10-30] MEDS: Nystatin SUSPENSION 100,000 UNITS/ML UDC PO SCH ×2 (16:17→21:20)
[2022-10-30] MEDS: Enoxaparin 40 MG/0.4 ML SYR SUBCUT SCH (16:19)
[2022-10-30] MEDS ORDERED: methylPREDNISolone SOD SUCC 125 mg 2 ML VIAL IV ONE (17:00)
[2022-10-30] MEDS: Cholecalciferol (VIT D3) 1,000 unit TAB PO SCH (21:16)
[2022-10-30] MEDS: Sulfamethox/Trimethoprim DS TAB 800/160 mg PO SCH (21:34)
[2022-10-30] MEDS: PTO: Azelastine 0.1% Nasal (NF) 30 ML BTL BOTH NARES SCH (21:35)
[2022-10-31 05:44] LABS: ABS Lymphocytes 0.4 10^3/uL (1.0-4.8); ABS Monocytes 0.2 10^3/uL (0.0-1.1); ABS Neutrophils 3.5 10^3/uL (1.5-7.6); ABS Nucleated RBC 0.01 10^3/ul; Hematocrit 26.9 % (38-53); Hemoglobin 9.6 g/dL (13.2-16.3); Lymphocyte % 9.5 %; Mean Corpuscular Hemoglobin 31.8 pg (27-33); Mean Corpuscular Hgb Conc 35.6 g/dL (31-36); Mean Corpuscular Volume 89.2 fL (80-97); Mean Platelet Volume 7.6 fL (7.5-11.2); Nucleated Red Blood Cells % 0.2 /100 WBC (0.0-0.4); Platelet Count 119 10^3/uL (150-450); Red Blood Count 3.01 10^6/uL (4.06-5.63); Red Cell Distribution Width 21.2 % (12-17)
[2022-10-31 06:01] LABS: Albumin 3.4 g/dL (3.2-5.2); Albumin/Globulin Ratio 2.1 (1-3); Calcium 8.3 mg/dL (8.6-10.3); Creatinine, Serum 0.81 mg/dL (0.67-1.17); Globulin 1.6 g/dL (2-4); Total Bilirubin 0.4 mg/dL (0.2-1.0); eGFR CKD-EPI 91.9 (>60)
[2022-10-31] MEDS: methylPREDNISolone SOD SUCC 125 mg 2 ML VIAL IV SCH ×2 (09:38→20:49)
[2022-10-31] MEDS: Polyethylene Glycol 3350 17 GM PACKET PO PRN (09:38)
[2022-10-31] MEDS: Nystatin SUSPENSION 100,000 UNITS/ML UDC PO SCH ×4 (09:39→20:43)
[2022-10-31] MEDS: Calcium Carbonate LIQ 1,250 mg/5 ml UDC PO SCH (09:46)
[2022-10-31] MEDS: DOXORUBICIN IVPB SCH (15:23)
[2022-10-31] MEDS: NS 0.9% IVPB SCH (15:23)
[2022-10-31] MEDS: ETOPOSIDE IVPB SCH (15:23)
[2022-10-31] MEDS: Enoxaparin 40 MG/0.4 ML SYR SUBCUT SCH (17:39)
[2022-10-31] MEDS: PTO: Azelastine 0.1% Nasal (NF) 30 ML BTL BOTH NARES SCH (20:43)
[2022-10-31] MEDS: Magnesium Hydroxide LIQ 30 ML UDC PO SCH (20:44)
[2022-10-31] MEDS: Cholecalciferol (VIT D3) 1,000 unit TAB PO SCH (20:47)
[2022-11-01 07:05] LABS: ABS Lymphocytes 0.3 10^3/uL (1.0-4.8); ABS Monocytes 0.4 10^3/uL (0.0-1.1); ABS Neutrophils 5.9 10^3/uL (1.5-7.6); Hematocrit 27.4 % (38-53); Hemoglobin 9.6 g/dL (13.2-16.3); Mean Corpuscular Hemoglobin 31.7 pg (27-33); Mean Corpuscular Hgb Conc 34.9 g/dL (31-36); Mean Corpuscular Volume 90.7 fL (80-97); Mean Platelet Volume 8.1 fL (7.5-11.2); Platelet Count 112 10^3/uL (150-450); Red Blood Count 3.02 10^6/uL (4.06-5.63); Red Cell Distribution Width 21.6 % (12-17); White Blood Count 6.6 10^3/uL (3.6-10.2)
[2022-11-01 07:33] LABS: Albumin 3.3 g/dL (3.2-5.2); Albumin/Globulin Ratio 2.5 (1-3); Calcium 8.2 mg/dL (8.6-10.3); Creatinine, Serum 0.72 mg/dL (0.67-1.17); Globulin 1.3 g/dL (2-4); Potassium 4.3 mmol/L (3.5-5.0); Total Bilirubin 0.4 mg/dL (0.2-1.0); Total Protein 4.6 g/dL (6.4-8.9); eGFR CKD-EPI 95.3 (>60)
[2022-11-01] MEDS ORDERED: PALONOSETRON HCL 0.05 MG/ML (0.25 MG) SYRINGE (0.05 MG/ML) IV ONE (09:00)
[2022-11-01] MEDS: methylPREDNISolone SOD SUCC 125 mg 2 ML VIAL IV SCH ×2 (09:12→21:39)
[2022-11-01] MEDS: Nystatin SUSPENSION 100,000 UNITS/ML UDC PO SCH ×4 (09:12→21:55)
[2022-11-01] MEDS: Calcium Carbonate LIQ 1,250 mg/5 ml UDC PO SCH (09:13)
[2022-11-01] MEDS: Polyethylene Glycol 3350 17 GM PACKET PO PRN (09:21)
[2022-11-01] MEDS: Magnesium Hydroxide LIQ 30 ML UDC PO SCH ×2 (09:24→21:36)
[2022-11-01] MEDS ORDERED: Senna TAB 8.6 mg TAB PO ONE (10:27)
[2022-11-01] MEDS: ETOPOSIDE IVPB SCH (15:05)
[2022-11-01] MEDS: DOXORUBICIN IVPB SCH (15:05)
[2022-11-01] MEDS: NS 0.9% IVPB SCH (15:05)
[2022-11-01] MEDS: Enoxaparin 40 MG/0.4 ML SYR SUBCUT SCH (17:19)
[2022-11-01] MEDS: Senna TAB 8.6 mg TAB PO SCH (21:36)
[2022-11-01] MEDS: Cholecalciferol (VIT D3) 1,000 unit TAB PO SCH (21:38)
[2022-11-01] MEDS: Sulfamethox/Trimethoprim DS TAB 800/160 mg PO SCH (21:38)
[2022-11-01] MEDS: PTO: Azelastine 0.1% Nasal (NF) 30 ML BTL BOTH NARES SCH (21:39)
[2022-11-02] MEDS ORDERED: CMCS: Alendronate 70 mg TAB (NF) PO SCH (06:00)
[2022-11-02 06:03] LABS: Albumin 3.2 g/dL (3.2-5.2); Albumin/Globulin Ratio 2.1 (1-3); Calcium 8.3 mg/dL (8.6-10.3); Creatinine, Serum 0.66 mg/dL (0.67-1.17); Globulin 1.5 g/dL (2-4); Potassium 4.4 mmol/L (3.5-5.0); Total Bilirubin 0.3 mg/dL (0.2-1.0); Total Protein 4.7 g/dL (6.4-8.9); eGFR CKD-EPI 97.8 (>60)
[2022-11-02 06:05] LABS: ABS Lymphocytes 0.2 10^3/uL (1.0-4.8); ABS Monocytes 0.2 10^3/uL (0.0-1.1); ABS Neutrophils 4.6 10^3/uL (1.5-7.6); Hematocrit 27.3 % (38-53); Hemoglobin 9.5 g/dL (13.2-16.3); Lymphocyte % 4.5 %; Mean Corpuscular Hemoglobin 31.1 pg (27-33); Mean Corpuscular Hgb Conc 34.6 g/dL (31-36); Mean Corpuscular Volume 89.8 fL (80-97); Mean Platelet Volume 8.4 fL (7.5-11.2); Platelet Count 110 10^3/uL (150-450); Red Blood Count 3.05 10^6/uL (4.06-5.63); Red Cell Distribution Width 21.7 % (12-17)
[2022-11-02] MEDS: Senna TAB 8.6 mg TAB PO SCH ×2 (09:42→21:26)
[2022-11-02] MEDS: Calcium Carbonate LIQ 1,250 mg/5 ml UDC PO SCH (09:43)
[2022-11-02] MEDS: Nystatin SUSPENSION 100,000 UNITS/ML UDC PO SCH ×4 (09:44→21:26)
[2022-11-02] MEDS: methylPREDNISolone SOD SUCC 125 mg 2 ML VIAL IV SCH ×2 (09:51→21:25)
[2022-11-02] MEDS: Magnesium Hydroxide LIQ 30 ML UDC PO SCH ×2 (10:52→21:25)
[2022-11-02] MEDS: DOXORUBICIN IVPB SCH (14:06)
[2022-11-02] MEDS: NS 0.9% IVPB SCH (14:06)
[2022-11-02] MEDS: ETOPOSIDE IVPB SCH (14:06)
[2022-11-02] MEDS: Enoxaparin 40 MG/0.4 ML SYR SUBCUT SCH (17:57)
[2022-11-02] MEDS: Cholecalciferol (VIT D3) 1,000 unit TAB PO SCH (21:27)
[2022-11-02] MEDS: PTO: Azelastine 0.1% Nasal (NF) 30 ML BTL BOTH NARES SCH (21:28)
[2022-11-03 06:55] LABS: ABS Lymphocytes 0.3 10^3/uL (1.0-4.8); ABS Neutrophils 3.4 10^3/uL (1.5-7.6); Hematocrit 26.5 % (38-53); Hemoglobin 9.2 g/dL (13.2-16.3); Lymphocyte % 7.6 %; Mean Corpuscular Hgb Conc 34.6 g/dL (31-36); Mean Corpuscular Volume 89.6 fL (80-97); Mean Platelet Volume 7.9 fL (7.5-11.2); Platelet Count 102 10^3/uL (150-450); Red Blood Count 2.95 10^6/uL (4.06-5.63); Red Cell Distribution Width 20.7 % (12-17); White Blood Count 3.7 10^3/uL (3.6-10.2)
[2022-11-03 07:26] LABS: Albumin 3.1 g/dL (3.2-5.2); Albumin/Globulin Ratio 2.4 (1-3); Calcium 8.2 mg/dL (8.6-10.3); Creatinine, Serum 0.67 mg/dL (0.67-1.17); Globulin 1.3 g/dL (2-4); Potassium 4.5 mmol/L (3.5-5.0); Total Bilirubin 0.5 mg/dL (0.2-1.0); Total Protein 4.4 g/dL (6.4-8.9); eGFR CKD-EPI 97.4 (>60)
[2022-11-03 10:05] VITALS: BP 125/76
[2022-11-03] MEDS: Calcium Carbonate LIQ 1,250 mg/5 ml UDC PO SCH (10:16)
[2022-11-03] MEDS: Nystatin SUSPENSION 100,000 UNITS/ML UDC PO SCH (10:17)
[2022-11-03] MEDS: Magnesium Hydroxide LIQ 30 ML UDC PO SCH (10:17)
[2022-11-03] MEDS: Senna TAB 8.6 mg TAB PO SCH (10:18)
[2022-11-03] MEDS: methylPREDNISolone SOD SUCC 125 mg 2 ML VIAL IV SCH (10:19)
== END 2022-11-03 14:05 | disposition home or self-care (01) | DRG 847 ==
LOC: CHOA 08:08 → SUATTDRO 15:08 → MED 15:08
PROVIDERS: ADMIT Internal Medicine Hematology & Oncology; ATTEND Internal Medicine Hematology & Oncology

== ENCOUNTER 2022-12-27 14:02 | Inpatient (IN) ==
[~2022-12-27 14:02] MED LIST changes: -APREPITANT 130 MG in Premix IV 0 ML IV SCH; +Dexamethasone IV 20 MG in NS 0.9% 50 ML 50 ML IVPB SCH; -NS 0.9% IVPB SCH; -RITUXIMAB IVPB SCH
[2022-12-27 15:02] LABS: ABS Eosinophils 0.1 10^3/uL (0.0-0.5); ABS Monocytes 0.3 10^3/uL (0.0-1.1); ABS Neutrophils 2.3 10^3/uL (1.5-7.6); ABS Nucleated RBC 0.01 10^3/ul; Hematocrit 37.8 % (38-53); Hemoglobin 13.2 g/dL (13.2-16.3); Lymphocyte % 26.5 %; Mean Corpuscular Hemoglobin 32.9 pg (27-33); Mean Corpuscular Hgb Conc 34.8 g/dL (31-36); Mean Corpuscular Volume 94.5 fL (80-97); Mean Platelet Volume 8.1 fL (7.5-11.2); Nucleated Red Blood Cells % 0.2 /100 WBC (0.0-0.4); Platelet Count 131 10^3/uL (150-450); Red Cell Distribution Width 16.1 % (12-17); White Blood Count 3.7 10^3/uL (3.6-10.2)
[2022-12-27 15:25] LABS: Albumin 4.2 g/dL (3.2-5.2); Total Bilirubin 0.5 mg/dL (0.2-1.0)
[2022-12-27 15:28] LABS: INR 0.98 (0.83-1.13)
[2022-12-27 15:31] LABS: Creatinine, Serum 0.84 mg/dL (0.67-1.17); Globulin 2.1 g/dL (2-4); Total Protein 6.3 g/dL (6.4-8.9); Uric Acid 5.2 mg/dL (4.4-7.6); eGFR CKD-EPI 90.9 (>60)
[2022-12-27 15:48] LABS: Potassium 4.3 mmol/L (3.5-5.0)
[2022-12-27] MEDS: NS 0.9% 1000 ml BAG 1,000 ML IV SCH (19:22)
[2022-12-27] MEDS: Dexamethasone IV 20 MG in NS 0.9% 50 ML 50 ML IVPB SCH (21:41)
[2022-12-27] MEDS: Famotidine IV 10 MG/ML 2 ml VIAL (20 mg) IV SLOW PU SCH (22:58)
[2022-12-28] MEDS: NS 0.9% 1000 ml BAG 1,000 ML IV SCH ×2 (05:05→16:57)
[2022-12-28 06:33] LABS: ABS Lymphocytes 0.6 10^3/uL (1.0-4.8); ABS Monocytes 0.1 10^3/uL (0.0-1.1); ABS Neutrophils 2.9 10^3/uL (1.5-7.6); Hematocrit 33.9 % (38-53); Hemoglobin 12.1 g/dL (13.2-16.3); Lymphocyte % 16.2 %; Mean Corpuscular Hemoglobin 33.4 pg (27-33); Mean Corpuscular Hgb Conc 35.7 g/dL (31-36); Mean Corpuscular Volume 93.6 fL (80-97); Mean Platelet Volume 8.2 fL (7.5-11.2); Platelet Count 116 10^3/uL (150-450); Red Blood Count 3.63 10^6/uL (4.06-5.63); White Blood Count 3.6 10^3/uL (3.6-10.2)
[2022-12-28 06:57] LABS: Albumin 3.4 g/dL (3.2-5.2); Potassium 4.1 mmol/L (3.5-5.0); Total Bilirubin 0.5 mg/dL (0.2-1.0)
[2022-12-28 07:02] LABS: Albumin/Globulin Ratio 1.9 (1-3); Creatinine, Serum 0.73 mg/dL (0.67-1.17); Globulin 1.8 g/dL (2-4); Total Protein 5.2 g/dL (6.4-8.9); eGFR CKD-EPI 94.9 (>60)
[2022-12-28] MEDS ORDERED: Influenza vaccine *QUAD* *2023-24* 0.5 ML SYRINGE IM ONE (09:00)
[2022-12-28] MEDS: Dexamethasone IV 20 MG in NS 0.9% 50 ML 50 ML IVPB SCH ×2 (09:33→21:20)
[2022-12-28] MEDS: Famotidine IV 10 MG/ML 2 ml VIAL (20 mg) IV SLOW PU SCH ×2 (09:34→21:20)
[2022-12-28] MEDS ORDERED: Gadoteridol (CONTRAST) 279.3 MG/ML 10 ML IV ONE (11:36)
[2022-12-28] MEDS ORDERED: fentaNYL 100 mcg/2 ml 50 MCG/ML VIAL ONE (14:09)
[2022-12-28] MEDS ORDERED: Ondansetron 4 mg VIAL 2 MG/ML 2 ml VIAL ONE (14:09)
[2022-12-28 15:15] LABS: Body Fluid Source Cerebral Spinal
[2022-12-28 16:00] LABS: Body Fluid Appearance Bloody; Body Fluid Color Pink; CSF Tube # 4
[2022-12-28 16:04] LABS: Body Fluid WBC 58 /mcL
[2022-12-28 16:14] LABS: Body Fluid Mono 23 %; Body Fluid Total Cells Counted 200
[2022-12-28] MEDS: Enoxaparin 40 MG/0.4 ML SYR SUBCUT SCH (21:21)
[2022-12-28] MEDS: Sodium Bicarbonate 8.4% IV 100 MEQ in D5W 1000 ML BAG IV SCH (23:51)
[2022-12-29 06:12] LABS: Albumin 3.4 g/dL (3.2-5.2); Albumin/Globulin Ratio 2.3 (1-3); Calcium 8.3 mg/dL (8.6-10.3); Creatinine, Serum 0.78 mg/dL (0.67-1.17); Globulin 1.5 g/dL (2-4); Total Bilirubin 0.4 mg/dL (0.2-1.0); Total Protein 4.9 g/dL (6.4-8.9)
[2022-12-29 06:13] LABS: ABS Lymphocytes 0.5 10^3/uL (1.0-4.8); ABS Monocytes 0.2 10^3/uL (0.0-1.1); Hematocrit 30.8 % (38-53); Lymphocyte % 11.1 %; Mean Corpuscular Hemoglobin 33.6 pg (27-33); Mean Corpuscular Hgb Conc 35.6 g/dL (31-36); Mean Corpuscular Volume 94.6 fL (80-97); Mean Platelet Volume 8.2 fL (7.5-11.2); Platelet Count 97 10^3/uL (150-450); Red Blood Count 3.26 10^6/uL (4.06-5.63); Red Cell Distribution Width 15.8 % (12-17); White Blood Count 4.7 10^3/uL (3.6-10.2)
[2022-12-29] MEDS: Sodium Bicarbonate 8.4% IV 100 MEQ in D5W 1000 ML BAG IV SCH ×3 (06:49→22:13)
[2022-12-29] MEDS: Famotidine IV 10 MG/ML 2 ml VIAL (20 mg) IV SLOW PU SCH ×2 (08:53→21:19)
[2022-12-29] MEDS: Dexamethasone IV 20 MG in NS 0.9% 50 ML 50 ML IVPB SCH ×2 (08:56→22:13)
[2022-12-29] MEDS ORDERED: PALONOSETRON HCL 0.05 MG/ML (0.25 MG) SYRINGE (0.05 MG/ML) IV ONE (11:00)
[2022-12-29] MEDS ORDERED: NS 0.9% IVPB ONE (11:30)
[2022-12-29] MEDS ORDERED: METHOTREXATE IVPB ONE (11:30)
[2022-12-29 14:48] LABS: Magnesium 1.8 mg/dL (1.9-2.7)
[2022-12-29] MEDS: Enoxaparin 40 MG/0.4 ML SYR SUBCUT SCH (22:13)
[2022-12-30] MEDS: Sodium Bicarbonate 8.4% IV 100 MEQ in D5W 1000 ML BAG IV SCH ×3 (05:00→20:00)
[2022-12-30 06:40] LABS: ABS Lymphocytes 0.5 10^3/uL (1.0-4.8); ABS Monocytes 0.2 10^3/uL (0.0-1.1); ABS Neutrophils 4.5 10^3/uL (1.5-7.6); Hematocrit 30.8 % (38-53); Hemoglobin 10.9 g/dL (13.2-16.3); Lymphocyte % 8.7 %; Mean Corpuscular Hemoglobin 33.4 pg (27-33); Mean Corpuscular Hgb Conc 35.5 g/dL (31-36); Mean Platelet Volume 7.8 fL (7.5-11.2); Nucleated Red Blood Cells % 0.1 /100 WBC (0.0-0.4); Platelet Count 87 10^3/uL (150-450); Red Blood Count 3.28 10^6/uL (4.06-5.63); Red Cell Distribution Width 15.7 % (12-17); White Blood Count 5.2 10^3/uL (3.6-10.2)
[2022-12-30 06:48] LABS: Albumin 3.4 g/dL (3.2-5.2); Albumin/Globulin Ratio 2.4 (1-3); Calcium 7.9 mg/dL (8.6-10.3); Creatinine, Serum 0.86 mg/dL (0.67-1.17); Globulin 1.4 g/dL (2-4); Magnesium 1.8 mg/dL (1.9-2.7); Potassium 3.6 mmol/L (3.5-5.0); Total Bilirubin 0.8 mg/dL (0.2-1.0); Total Protein 4.8 g/dL (6.4-8.9); eGFR CKD-EPI 90.3 (>60)
[2022-12-30] MEDS: Dexamethasone IV 20 MG in NS 0.9% 50 ML 50 ML IVPB SCH ×2 (09:15→21:00)
[2022-12-30] MEDS: Famotidine IV 10 MG/ML 2 ml VIAL (20 mg) IV SLOW PU SCH ×2 (09:17→21:06)
[2022-12-30] MEDS: Leucovorin Calcium 25 MG in NS 0.9% 50 ML 50 ML IVPB SCH ×2 (12:10→18:34)
[2022-12-30] MEDS: Enoxaparin 40 MG/0.4 ML SYR SUBCUT SCH (21:05)
[2022-12-31] MEDS: Leucovorin Calcium 25 MG in NS 0.9% 50 ML 50 ML IVPB SCH ×4 (00:36→17:57)
[2022-12-31] MEDS: Sodium Bicarbonate 8.4% IV 100 MEQ in D5W 1000 ML BAG IV SCH ×3 (02:18→18:08)
[2022-12-31 06:05] LABS: ABS Lymphocytes 0.4 10^3/uL (1.0-4.8); ABS Monocytes 0.1 10^3/uL (0.0-1.1); ABS Neutrophils 3.4 10^3/uL (1.5-7.6); Hemoglobin 11.2 g/dL (13.2-16.3); Lymphocyte % 9.4 %; Mean Corpuscular Hemoglobin 33.9 pg (27-33); Mean Corpuscular Hgb Conc 36.2 g/dL (31-36); Mean Corpuscular Volume 93.7 fL (80-97); Nucleated Red Blood Cells % 0.1 /100 WBC (0.0-0.4); Platelet Count 92 10^3/uL (150-450); Red Blood Count 3.31 10^6/uL (4.06-5.63); Red Cell Distribution Width 15.3 % (12-17); White Blood Count 3.9 10^3/uL (3.6-10.2)
[2022-12-31 06:17] LABS: Albumin 3.3 g/dL (3.2-5.2); Albumin/Globulin Ratio 2.5 (1-3); Calcium 7.9 mg/dL (8.6-10.3); Creatinine, Serum 0.75 mg/dL (0.67-1.17); Globulin 1.3 g/dL (2-4); Magnesium 1.8 mg/dL (1.9-2.7); Potassium 3.6 mmol/L (3.5-5.0); Total Bilirubin 0.5 mg/dL (0.2-1.0); Total Protein 4.6 g/dL (6.4-8.9); eGFR CKD-EPI 94.1 (>60)
[2022-12-31] MEDS: Famotidine IV 10 MG/ML 2 ml VIAL (20 mg) IV SLOW PU SCH ×2 (09:18→21:52)
[2022-12-31] MEDS: Dexamethasone IV 20 MG in NS 0.9% 50 ML 50 ML IVPB SCH (09:18)
[2022-12-31] MEDS: Enoxaparin 40 MG/0.4 ML SYR SUBCUT SCH (21:52)
[2023-01-01] MEDS: Leucovorin Calcium 25 MG in NS 0.9% 50 ML 50 ML IVPB SCH ×4 (00:43→20:05)
[2023-01-01] MEDS: Sodium Bicarbonate 8.4% IV 100 MEQ in D5W 1000 ML BAG IV SCH ×4 (01:25→23:26)
[2023-01-01 06:02] LABS: ABS Lymphocytes 0.5 10^3/uL (1.0-4.8); ABS Monocytes 0.1 10^3/uL (0.0-1.1); ABS Neutrophils 3.8 10^3/uL (1.5-7.6); ABS Nucleated RBC 0.01 10^3/ul; Eosinophil % 0.1 %; Hematocrit 29.8 % (38-53); Hemoglobin 10.7 g/dL (13.2-16.3); Mean Corpuscular Hemoglobin 33.6 pg (27-33); Mean Corpuscular Hgb Conc 35.8 g/dL (31-36); Mean Platelet Volume 8.2 fL (7.5-11.2); Nucleated Red Blood Cells % 0.1 /100 WBC (0.0-0.4); Platelet Count 86 10^3/uL (150-450); Red Blood Count 3.17 10^6/uL (4.06-5.63); Red Cell Distribution Width 15.4 % (12-17); White Blood Count 4.5 10^3/uL (3.6-10.2)
[2023-01-01 06:18] LABS: Albumin 2.8 g/dL (3.2-5.2); Albumin/Globulin Ratio 1.9 (1-3); Calcium 7.6 mg/dL (8.6-10.3); Creatinine, Serum 1.03 mg/dL (0.67-1.17); Globulin 1.5 g/dL (2-4); Magnesium 1.8 mg/dL (1.9-2.7); Potassium 3.1 mmol/L (3.5-5.0); Total Bilirubin 0.5 mg/dL (0.2-1.0); Total Protein 4.3 g/dL (6.4-8.9); eGFR CKD-EPI 75.8 (>60)
[2023-01-01] MEDS: Famotidine IV 10 MG/ML 2 ml VIAL (20 mg) IV SLOW PU SCH (09:12)
[2023-01-01] MEDS: LEUCOVORIN CALCIUM IVPB SCH (20:26)
[2023-01-01] MEDS: NS 0.9% IVPB SCH (20:26)
[2023-01-01] MEDS: Enoxaparin 40 MG/0.4 ML SYR SUBCUT SCH (21:18)
[2023-01-02] MEDS: LEUCOVORIN CALCIUM IVPB SCH ×4 (02:06→21:07)
[2023-01-02] MEDS: NS 0.9% IVPB SCH ×4 (02:06→21:07)
[2023-01-02 06:18] LABS: Albumin 3.1 g/dL (3.2-5.2); Albumin/Globulin Ratio 1.8 (1-3); Creatinine, Serum 1.4 mg/dL (0.67-1.17); Globulin 1.7 g/dL (2-4); Magnesium 1.7 mg/dL (1.9-2.7); Potassium 3.2 mmol/L (3.5-5.0); Total Bilirubin 0.9 mg/dL (0.2-1.0); Total Protein 4.8 g/dL (6.4-8.9); eGFR CKD-EPI 52.4 (>60)
[2023-01-02] MEDS: Sodium Bicarbonate 8.4% IV 100 MEQ in D5W 1000 ML BAG IV SCH ×3 (06:40→18:13)
[2023-01-02 07:01] LABS: ABS Lymphocytes 0.3 10^3/uL (1.0-4.8); ABS Neutrophils 6.1 10^3/uL (1.5-7.6); Eosinophil % 0.1 %; Hematocrit 33.5 % (38-53); Hemoglobin 11.9 g/dL (13.2-16.3); Lymphocyte % 4.3 %; Mean Corpuscular Hemoglobin 33.5 pg (27-33); Mean Corpuscular Hgb Conc 35.6 g/dL (31-36); Mean Corpuscular Volume 93.9 fL (80-97); Mean Platelet Volume 8.3 fL (7.5-11.2); Nucleated Red Blood Cells % 0.1 /100 WBC (0.0-0.4); Platelet Count 98 10^3/uL (150-450); Red Blood Count 3.57 10^6/uL (4.06-5.63); Red Cell Distribution Width 15.1 % (12-17); White Blood Count 6.4 10^3/uL (3.6-10.2)
[2023-01-02] MEDS ORDERED: NS 0.9% 500 ml BAG 500 ML IV SCH (15:00)
[2023-01-02] MEDS: Potassium Chlor 20 meq TAB.ER PO SCH ×3 (16:04→22:19)
[2023-01-02] MEDS: Enoxaparin 40 MG/0.4 ML SYR SUBCUT SCH (22:20)
[2023-01-03] MEDS: Sodium Bicarbonate 8.4% IV 100 MEQ in D5W 1000 ML BAG IV SCH ×3 (01:35→14:46)
[2023-01-03] MEDS: LEUCOVORIN CALCIUM IVPB SCH ×4 (01:45→20:50)
[2023-01-03] MEDS: NS 0.9% IVPB SCH ×4 (01:45→20:50)
[2023-01-03 06:29] LABS: Hematocrit 30.1 % (38-53); Mean Corpuscular Hemoglobin 34.4 pg (27-33); Mean Corpuscular Hgb Conc 36.5 g/dL (31-36); Mean Corpuscular Volume 94.1 fL (80-97); Mean Platelet Volume 8.7 fL (7.5-11.2); Platelet Count 75 10^3/uL (150-450); Red Cell Distribution Width 14.6 % (12-17); White Blood Count 5.1 10^3/uL (3.6-10.2)
[2023-01-03 06:44] LABS: Albumin 3.2 g/dL (3.2-5.2); Albumin/Globulin Ratio 1.9 (1-3); Creatinine, Serum 1.02 mg/dL (0.67-1.17); Globulin 1.7 g/dL (2-4); Magnesium 1.9 mg/dL (1.9-2.7); Potassium 3.7 mmol/L (3.5-5.0); Total Bilirubin 0.8 mg/dL (0.2-1.0); Total Protein 4.9 g/dL (6.4-8.9); eGFR CKD-EPI 76.6 (>60)
[2023-01-03 07:59] LABS: ABS Lymphocytes 0.3 10^3/uL (1.0-4.8); ABS Monocytes 0.1 10^3/uL (0.0-1.1); ABS Neutrophils 4.7 10^3/uL (1.5-7.6)
[2023-01-03] MEDS ORDERED: Polyethylene Glycol 3350 17 GM PACKET PO PRN (11:54)
[2023-01-03] MEDS: Sodium Bicarb 8.4% Vial 50 ML 100 MEQ in D5W 1000 ml BAG 1,000 ML IV SCH (14:37)
[2023-01-03] MEDS: Enoxaparin 40 MG/0.4 ML SYR SUBCUT SCH (20:57)
[2023-01-04] MEDS: Sodium Bicarb 8.4% Vial 50 ML 100 MEQ in D5W 1000 ml BAG 1,000 ML IV SCH ×3 (02:12→22:58)
[2023-01-04] MEDS: NS 0.9% IVPB SCH ×4 (02:14→22:08)
[2023-01-04] MEDS: LEUCOVORIN CALCIUM IVPB SCH ×4 (02:14→22:08)
[2023-01-04 05:21] LABS: Hematocrit 31.7 % (38-53); Hemoglobin 11.3 g/dL (13.2-16.3); Mean Corpuscular Hemoglobin 33.4 pg (27-33); Mean Corpuscular Hgb Conc 35.8 g/dL (31-36); Mean Corpuscular Volume 93.4 fL (80-97); Mean Platelet Volume 7.9 fL (7.5-11.2); Platelet Count 79 10^3/uL (150-450); Red Blood Count 3.39 10^6/uL (4.06-5.63); Red Cell Distribution Width 15.4 % (12-17); White Blood Count 6.1 10^3/uL (3.6-10.2)
[2023-01-04 05:40] LABS: Calcium 7.6 mg/dL (8.6-10.3); Potassium 3.8 mmol/L (3.5-5.0)
[2023-01-04 05:46] LABS: Creatinine, Serum 0.96 mg/dL (0.67-1.17); eGFR CKD-EPI 82.4 (>60)
[2023-01-04 08:45] LABS: ABS Lymphocytes 0.3 10^3/uL (1.0-4.8); ABS Monocytes 0.1 10^3/uL (0.0-1.1); ABS Neutrophils 5.7 10^3/uL (1.5-7.6); Lymphocyte % 4.7 %; Nucleated Red Blood Cells % 0.1 /100 WBC (0.0-0.4)
[2023-01-04] MEDS: Magnesium Hydroxide LIQ 30 ML UDC PO PRN (15:08)
[2023-01-04] MEDS: Senna TAB 8.6 mg TAB PO PRN (15:09)
[2023-01-04] MEDS: Enoxaparin 40 MG/0.4 ML SYR SUBCUT SCH (21:30)
[2023-01-05] MEDS: LEUCOVORIN CALCIUM IVPB SCH ×3 (03:44→14:21)
[2023-01-05] MEDS: NS 0.9% IVPB SCH ×3 (03:44→14:21)
[2023-01-05 06:00] LABS: Hematocrit 30.4 % (38-53); Hemoglobin 10.9 g/dL (13.2-16.3); Mean Corpuscular Hemoglobin 33.3 pg (27-33); Mean Corpuscular Hgb Conc 35.8 g/dL (31-36); Mean Platelet Volume 8.3 fL (7.5-11.2); Platelet Count 74 10^3/uL (150-450); Red Blood Count 3.26 10^6/uL (4.06-5.63); White Blood Count 6.2 10^3/uL (3.6-10.2)
[2023-01-05 06:26] LABS: Albumin/Globulin Ratio 1.8 (1-3); Calcium 7.7 mg/dL (8.6-10.3); Creatinine, Serum 0.91 mg/dL (0.67-1.17); Globulin 1.7 g/dL (2-4); Potassium 3.6 mmol/L (3.5-5.0); Total Bilirubin 0.6 mg/dL (0.2-1.0); Total Protein 4.7 g/dL (6.4-8.9); eGFR CKD-EPI 87.9 (>60)
[2023-01-05 08:57] LABS: RBC Morphology Normal (Normal)
[2023-01-05 09:00] LABS: ABS Lymphocytes 0.4 10^3/uL (1.0-4.8); ABS Monocytes 0.2 10^3/uL (0.0-1.1); ABS Neutrophils 5.6 10^3/uL (1.5-7.6); Lymphocyte % 6.4 %; Nucleated Red Blood Cells % 0.1 /100 WBC (0.0-0.4)
[2023-01-05] MEDS: Sodium Bicarb 8.4% Vial 50 ML 100 MEQ in D5W 1000 ml BAG 1,000 ML IV SCH (10:22)
[2023-01-05] MEDS: Polyethylene Glycol 3350 17 GM PACKET PO SCH (11:45)
[2023-01-05] MEDS: Magnesium Hydroxide LIQ 30 ML UDC PO SCH ×2 (11:45→21:48)
[2023-01-05 12:17] LABS: BLYM Referral Reason B-cell lymphoma; BLYM Result Summary Negative; BLYM Source Left neck lymph node; BLYM Tissue ID S23-8192-B
[2023-01-05] MEDS: Enoxaparin 40 MG/0.4 ML SYR SUBCUT SCH (21:48)
[2023-01-06] MEDS: Polyethylene Glycol 3350 17 GM PACKET PO SCH (10:13)
[2023-01-06] MEDS: Magnesium Hydroxide LIQ 30 ML UDC PO SCH ×2 (10:13→20:09)
[2023-01-06] MEDS: Lactulose 30 ml UDC PO SCH ×2 (13:07→20:09)
[2023-01-06 14:39] LABS: Potassium 3.7 mmol/L (3.5-5.0)
[2023-01-06 14:45] LABS: Creatinine, Serum 1.05 mg/dL (0.67-1.17)
[2023-01-06 15:01] LABS: Hematocrit 34.1 % (38-53); Hemoglobin 12.1 g/dL (13.2-16.3); Mean Corpuscular Hemoglobin 33.5 pg (27-33); Mean Corpuscular Hgb Conc 35.5 g/dL (31-36); Mean Corpuscular Volume 94.2 fL (80-97); Red Blood Count 3.62 10^6/uL (4.06-5.63); Red Cell Distribution Width 15.1 % (12-17); White Blood Count 4.9 10^3/uL (3.6-10.2)
[2023-01-06 15:49] LABS: Urine Appearance Turbid; Urine Bilirubin Negative (Negative); Urine Blood 2+ (Negative); Urine Color Yellow; Urine Glucose Negative (Negative); Urine Ketones Negative (Negative); Urine Nitrite Negative (Negative); Urine Protein 1+(30 mg/dL) (Negative); Urine Specific Gravity 1.012 (1.002-1.030); Urine Urobilinogen Negative (Negative)
[2023-01-06 15:54] LABS: Urine Bacteria 1+ (Absent); Urine Red Blood Cell 3+(>10/hpf) (Absent); Urine White Blood Cell 3+(>20/hpf) (Absent)
[2023-01-06 16:06] LABS: ABS Lymphocytes 0.1 10^3/uL (1.0-4.8); ABS Monocytes 0.3 10^3/uL (0.0-1.1); ABS Neutrophils 4.5 10^3/uL (1.5-7.6); Lymphocyte % 1.7 %; Mean Platelet Volume 7.7 fL (7.5-11.2); Nucleated Red Blood Cells % 0.1 /100 WBC (0.0-0.4); Platelet Count 44 10^3/uL (150-450)
[2023-01-06] MEDS: cefTRIAXone 1 gm/50 mL D5W 1 GM/50 ML BAG IV SCH (18:21)
[2023-01-06] MEDS: Enoxaparin 40 MG/0.4 ML SYR SUBCUT SCH (20:20)
[2023-01-07 06:42] LABS: Hematocrit 30.2 % (38-53); Hemoglobin 10.7 g/dL (13.2-16.3); Mean Corpuscular Hemoglobin 33.4 pg (27-33); Mean Corpuscular Hgb Conc 35.5 g/dL (31-36); Mean Corpuscular Volume 94.1 fL (80-97); Mean Platelet Volume 8.1 fL (7.5-11.2); Platelet Count 39 10^3/uL (150-450); Red Blood Count 3.21 10^6/uL (4.06-5.63); Red Cell Distribution Width 15.4 % (12-17); White Blood Count 4.8 10^3/uL (3.6-10.2)
[2023-01-07 06:55] LABS: ABS Lymphocytes 0.4 10^3/uL (1.0-4.8); ABS Monocytes 0.3 10^3/uL (0.0-1.1); Lymphocyte % 7.7 %
[2023-01-07 07:00] LABS: Calcium 7.6 mg/dL (8.6-10.3); Creatinine, Serum 0.91 mg/dL (0.67-1.17); Potassium 4.1 mmol/L (3.5-5.0); eGFR CKD-EPI 87.9 (>60)
[2023-01-07] MEDS: Senna TAB 8.6 mg TAB PO PRN ×2 (09:39→20:44)
[2023-01-07] MEDS: Polyethylene Glycol 3350 17 GM PACKET PO SCH (09:40)
[2023-01-07] MEDS: Magnesium Hydroxide LIQ 30 ML UDC PO SCH (09:41)
[2023-01-07] MEDS: Lactulose 30 ml UDC PO SCH ×2 (09:41→13:14)
[2023-01-07] MEDS: cefTRIAXone 1 gm/50 mL D5W 1 GM/50 ML BAG IV SCH (17:56)
[2023-01-07] MEDS: Enoxaparin 40 MG/0.4 ML SYR SUBCUT SCH (20:41)
[2023-01-08 07:00] LABS: Calcium 8.1 mg/dL (8.6-10.3); Creatinine, Serum 0.93 mg/dL (0.67-1.17); Magnesium 1.8 mg/dL (1.9-2.7); Potassium 4.3 mmol/L (3.5-5.0); eGFR CKD-EPI 85.6 (>60)
[2023-01-08 07:12] LABS: ABS Lymphocytes 0.5 10^3/uL (1.0-4.8); ABS Monocytes 0.4 10^3/uL (0.0-1.1); ABS Neutrophils 4.3 10^3/uL (1.5-7.6); Eosinophil % 0.1 %; Hematocrit 31.9 % (38-53); Hemoglobin 11.3 g/dL (13.2-16.3); Lymphocyte % 9.1 %; Mean Corpuscular Hemoglobin 33.1 pg (27-33); Mean Corpuscular Hgb Conc 35.5 g/dL (31-36); Mean Corpuscular Volume 93.3 fL (80-97); Mean Platelet Volume 9.4 fL (7.5-11.2); Platelet Count 54 10^3/uL (150-450); Red Blood Count 3.42 10^6/uL (4.06-5.63); Red Cell Distribution Width 15.1 % (12-17); White Blood Count 5.1 10^3/uL (3.6-10.2)
[2023-01-08] MEDS: Polyethylene Glycol 3350 17 GM PACKET PO SCH (08:33)
[2023-01-08] MEDS: Nystatin SUSPENSION 100,000 UNITS/ML UDC PO SCH ×3 (13:45→20:58)
[2023-01-08] MEDS: cefTRIAXone 1 gm/50 mL D5W 1 GM/50 ML BAG IV SCH (17:35)
[2023-01-08] MEDS: Enoxaparin 40 MG/0.4 ML SYR SUBCUT SCH (20:58)
[2023-01-08] MEDS: Senna TAB 8.6 mg TAB PO PRN (20:59)
[2023-01-08] MEDS: Magnesium Hydroxide LIQ 30 ML UDC PO PRN (21:03)
[2023-01-09 05:55] LABS: Hematocrit 33.2 % (38-53); Hemoglobin 11.8 g/dL (13.2-16.3); Mean Corpuscular Hemoglobin 32.9 pg (27-33); Mean Corpuscular Hgb Conc 35.5 g/dL (31-36); Mean Corpuscular Volume 92.5 fL (80-97); Mean Platelet Volume 8.2 fL (7.5-11.2); Platelet Count 55 10^3/uL (150-450); Red Blood Count 3.59 10^6/uL (4.06-5.63); Red Cell Distribution Width 14.9 % (12-17); White Blood Count 4.5 10^3/uL (3.6-10.2)
[2023-01-09 06:10] LABS: Calcium 8.2 mg/dL (8.6-10.3); Creatinine, Serum 1.04 mg/dL (0.67-1.17); eGFR CKD-EPI 74.9 (>60)
[2023-01-09 08:53] LABS: ABS Lymphocytes 0.7 10^3/uL (1.0-4.8); ABS Monocytes 0.3 10^3/uL (0.0-1.1); ABS Neutrophils 3.5 10^3/uL (1.5-7.6); Eosinophil % 0.5 %; Lymphocyte % 14.6 %; Nucleated Red Blood Cells % 0.1 /100 WBC (0.0-0.4)
[2023-01-09] MEDS: Magnesium Hydroxide LIQ 30 ML UDC PO PRN (10:40)
[2023-01-09] MEDS: Polyethylene Glycol 3350 17 GM PACKET PO SCH (10:40)
[2023-01-09] MEDS: Nystatin SUSPENSION 100,000 UNITS/ML UDC PO SCH ×4 (10:41→21:36)
[2023-01-09] MEDS: cefTRIAXone 1 gm/50 mL D5W 1 GM/50 ML BAG IV SCH (17:19)
[2023-01-09] MEDS: Senna TAB 8.6 mg TAB PO PRN (21:36)
[2023-01-09] MEDS: Enoxaparin 40 MG/0.4 ML SYR SUBCUT SCH (21:38)
[2023-01-10] MEDS: Nystatin SUSPENSION 100,000 UNITS/ML UDC PO SCH ×4 (10:34→21:13)
[2023-01-10] MEDS: Polyethylene Glycol 3350 17 GM PACKET PO SCH (10:35)
[2023-01-10] MEDS: cefTRIAXone 1 gm/50 mL D5W 1 GM/50 ML BAG IV SCH (17:29)
[2023-01-10] MEDS: Enoxaparin 40 MG/0.4 ML SYR SUBCUT SCH (21:14)
[2023-01-11 07:00] LABS: Calcium 8.1 mg/dL (8.6-10.3); Creatinine, Serum 1.03 mg/dL (0.67-1.17); Magnesium 2.1 mg/dL (1.9-2.7); eGFR CKD-EPI 75.8 (>60)
[2023-01-11 08:10] LABS: Hematocrit 34.7 % (38-53); Hemoglobin 12.3 g/dL (13.2-16.3); Mean Corpuscular Hemoglobin 32.8 pg (27-33); Mean Corpuscular Hgb Conc 35.5 g/dL (31-36); Mean Corpuscular Volume 92.4 fL (80-97); Platelet Count 83 10^3/uL (150-450); Red Blood Count 3.76 10^6/uL (4.06-5.63); Red Cell Distribution Width 14.6 % (12-17); White Blood Count 4.4 10^3/uL (3.6-10.2)
[2023-01-11 08:22] LABS: ABS Eosinophils 0.1 10^3/uL (0.0-0.5); ABS Lymphocytes 0.8 10^3/uL (1.0-4.8); ABS Monocytes 0.3 10^3/uL (0.0-1.1); ABS Neutrophils 3.2 10^3/uL (1.5-7.6); ABS Nucleated RBC 0.01 10^3/ul; Eosinophil % 1.4 %; Lymphocyte % 18.2 %; Nucleated Red Blood Cells % 0.2 /100 WBC (0.0-0.4)
[2023-01-11] MEDS: Nystatin SUSPENSION 100,000 UNITS/ML UDC PO SCH ×4 (10:29→22:03)
[2023-01-11] MEDS: Polyethylene Glycol 3350 17 GM PACKET PO SCH (10:30)
[2023-01-11] MEDS: Sodium Bicarb 650 mg (ANTACID) TAB PO SCH ×4 (10:31→22:03)
[2023-01-11] MEDS: Sodium Bicarbonate 8.4% IV 100 MEQ in D5W 1000 ML BAG IV SCH (21:56)
[2023-01-11] MEDS: Enoxaparin 40 MG/0.4 ML SYR SUBCUT SCH (22:04)
[2023-01-12] MEDS: Sodium Bicarbonate 8.4% IV 100 MEQ in D5W 1000 ML BAG IV SCH ×3 (05:17→19:18)
[2023-01-12 07:06] LABS: Calcium 7.6 mg/dL (8.6-10.3); Creatinine, Serum 1.16 mg/dL (0.67-1.17); Potassium 3.9 mmol/L (3.5-5.0); eGFR CKD-EPI 65.7 (>60)
[2023-01-12 08:40] LABS: Hematocrit 32.7 % (38-53); Hemoglobin 11.7 g/dL (13.2-16.3); Mean Corpuscular Hemoglobin 33.2 pg (27-33); Mean Corpuscular Hgb Conc 35.7 g/dL (31-36); Mean Corpuscular Volume 92.9 fL (80-97); Mean Platelet Volume 8.3 fL (7.5-11.2); Platelet Count 82 10^3/uL (150-450); Red Blood Count 3.52 10^6/uL (4.06-5.63); Red Cell Distribution Width 14.2 % (12-17); White Blood Count 2.8 10^3/uL (3.6-10.2)
[2023-01-12 08:43] LABS: ABS Eosinophils 0.1 10^3/uL (0.0-0.5); ABS Lymphocytes 0.6 10^3/uL (1.0-4.8); ABS Monocytes 0.2 10^3/uL (0.0-1.1); Eosinophil % 2.3 %; Lymphocyte % 21.2 %; Nucleated Red Blood Cells % 0.1 /100 WBC (0.0-0.4)
[2023-01-12] MEDS: Nystatin SUSPENSION 100,000 UNITS/ML UDC PO SCH ×4 (08:56→21:17)
[2023-01-12] MEDS: Polyethylene Glycol 3350 17 GM PACKET PO SCH (08:57)
[2023-01-12] MEDS ORDERED: PALONOSETRON HCL 0.05 MG/ML (0.25 MG) SYRINGE (0.05 MG/ML) IV ONE (11:00)
[2023-01-12] MEDS ORDERED: METHOTREXATE IVPB ONE (12:00)
[2023-01-12] MEDS ORDERED: NS 0.9% IVPB ONE (12:00)
[2023-01-12] MEDS: Enoxaparin 40 MG/0.4 ML SYR SUBCUT SCH (21:18)
[2023-01-13] MEDS: Sodium Bicarbonate 8.4% IV 100 MEQ in D5W 1000 ML BAG IV SCH ×3 (02:08→17:56)
[2023-01-13 06:47] LABS: ABS Lymphocytes 0.6 10^3/uL (1.0-4.8); ABS Monocytes 0.2 10^3/uL (0.0-1.1); ABS Neutrophils 1.8 10^3/uL (1.5-7.6); Eosinophil % 1.6 %; Hematocrit 29.8 % (38-53); Mean Corpuscular Hemoglobin 33.7 pg (27-33); Mean Corpuscular Hgb Conc 36.8 g/dL (31-36); Mean Corpuscular Volume 91.4 fL (80-97); Mean Platelet Volume 8.7 fL (7.5-11.2); Nucleated Red Blood Cells % 0.1 /100 WBC (0.0-0.4); Platelet Count 93 10^3/uL (150-450); Red Blood Count 3.26 10^6/uL (4.06-5.63); Red Cell Distribution Width 14.7 % (12-17); White Blood Count 2.6 10^3/uL (3.6-10.2)
[2023-01-13 07:00] LABS: Albumin 3.2 g/dL (3.2-5.2); Albumin/Globulin Ratio 2.3 (1-3); Calcium 7.5 mg/dL (8.6-10.3); Creatinine, Serum 1.02 mg/dL (0.67-1.17); Globulin 1.4 g/dL (2-4); Potassium 3.5 mmol/L (3.5-5.0); Total Bilirubin 1.2 mg/dL (0.2-1.0); Total Protein 4.6 g/dL (6.4-8.9); eGFR CKD-EPI 76.6 (>60)
[2023-01-13] MEDS: Polyethylene Glycol 3350 17 GM PACKET PO SCH (10:44)
[2023-01-13] MEDS: Nystatin SUSPENSION 100,000 UNITS/ML UDC PO SCH ×4 (10:44→21:32)
[2023-01-13] MEDS: NS 0.9% IVPB SCH ×2 (12:54→18:42)
[2023-01-13] MEDS: Lidocaine 2% JELLY 6 ML Topical TOPICAL PRN (12:54)
[2023-01-13] MEDS: LEUCOVORIN CALCIUM IVPB SCH ×2 (12:54→18:42)
[2023-01-13] MEDS: Enoxaparin 40 MG/0.4 ML SYR SUBCUT SCH (21:33)
[2023-01-14] MEDS: NS 0.9% IVPB SCH ×4 (01:08→18:23)
[2023-01-14] MEDS: LEUCOVORIN CALCIUM IVPB SCH ×4 (01:08→18:23)
[2023-01-14] MEDS: Sodium Bicarbonate 8.4% IV 100 MEQ in D5W 1000 ML BAG IV SCH ×4 (01:19→23:42)
[2023-01-14 06:04] LABS: ABS Lymphocytes 0.6 10^3/uL (1.0-4.8); ABS Monocytes 0.1 10^3/uL (0.0-1.1); ABS Neutrophils 1.6 10^3/uL (1.5-7.6); ABS Nucleated RBC 0.01 10^3/ul; Eosinophil % 1.6 %; Hemoglobin 11.1 g/dL (13.2-16.3); Lymphocyte % 24.6 %; Mean Corpuscular Hemoglobin 33.1 pg (27-33); Mean Corpuscular Volume 92.1 fL (80-97); Mean Platelet Volume 8.1 fL (7.5-11.2); Nucleated Red Blood Cells % 0.5 /100 WBC (0.0-0.4); Platelet Count 99 10^3/uL (150-450); Red Blood Count 3.36 10^6/uL (4.06-5.63); Red Cell Distribution Width 14.4 % (12-17); White Blood Count 2.4 10^3/uL (3.6-10.2)
[2023-01-14 06:13] LABS: Albumin 3.2 g/dL (3.2-5.2); Albumin/Globulin Ratio 1.7 (1-3); Calcium 8.2 mg/dL (8.6-10.3); Creatinine, Serum 0.95 mg/dL (0.67-1.17); Globulin 1.9 g/dL (2-4); Potassium 3.2 mmol/L (3.5-5.0); Total Bilirubin 0.6 mg/dL (0.2-1.0); Total Protein 5.1 g/dL (6.4-8.9); eGFR CKD-EPI 83.5 (>60)
[2023-01-14] MEDS: Nystatin SUSPENSION 100,000 UNITS/ML UDC PO SCH ×4 (08:31→21:50)
[2023-01-14] MEDS: Polyethylene Glycol 3350 17 GM PACKET PO SCH (08:31)
[2023-01-14] MEDS: Potassium Chlor 20 meq TAB.ER PO SCH (08:31)
[2023-01-14] MEDS ORDERED: Lidocaine PATCH 4% TOPICAL PRN (09:34)
[2023-01-14] MEDS: Enoxaparin 40 MG/0.4 ML SYR SUBCUT SCH (21:51)
[2023-01-15] MEDS: NS 0.9% IVPB SCH ×5 (00:50→22:53)
[2023-01-15] MEDS: LEUCOVORIN CALCIUM IVPB SCH ×5 (00:50→22:53)
[2023-01-15 05:54] LABS: Hematocrit 31.6 % (38-53); Hemoglobin 11.2 g/dL (13.2-16.3); Mean Corpuscular Hemoglobin 32.7 pg (27-33); Mean Corpuscular Hgb Conc 35.4 g/dL (31-36); Mean Corpuscular Volume 92.2 fL (80-97); Mean Platelet Volume 7.9 fL (7.5-11.2); Platelet Count 109 10^3/uL (150-450); Red Blood Count 3.42 10^6/uL (4.06-5.63); Red Cell Distribution Width 14.1 % (12-17); White Blood Count 2.1 10^3/uL (3.6-10.2)
[2023-01-15 06:14] LABS: Albumin 3.2 g/dL (3.2-5.2); Calcium 8.3 mg/dL (8.6-10.3); Creatinine, Serum 1.04 mg/dL (0.67-1.17); Globulin 1.6 g/dL (2-4); Potassium 3.5 mmol/L (3.5-5.0); Total Bilirubin 0.7 mg/dL (0.2-1.0); Total Protein 4.8 g/dL (6.4-8.9); eGFR CKD-EPI 74.9 (>60)
[2023-01-15] MEDS: Sodium Bicarbonate 8.4% IV 100 MEQ in D5W 1000 ML BAG IV SCH ×3 (06:48→23:28)
[2023-01-15 07:43] LABS: ABS Lymphocytes 0.5 10^3/uL (1.0-4.8); ABS Monocytes 0.1 10^3/uL (0.0-1.1); ABS Neutrophils 1.5 10^3/uL (1.5-7.6); Eosinophil % 1.5 %; Lymphocyte % 23.7 %; Nucleated Red Blood Cells % 0.2 /100 WBC (0.0-0.4)
[2023-01-15] MEDS: Potassium Chlor 20 meq TAB.ER PO SCH (10:12)
[2023-01-15] MEDS: Nystatin SUSPENSION 100,000 UNITS/ML UDC PO SCH (10:13)
[2023-01-15] MEDS: Polyethylene Glycol 3350 17 GM PACKET PO SCH (10:13)
[2023-01-15] MEDS: Enoxaparin 40 MG/0.4 ML SYR SUBCUT SCH (20:48)
[2023-01-15] MEDS: Magnesium Hydroxide LIQ 30 ML UDC PO PRN (20:58)
[2023-01-16] MEDS: Sodium Bicarbonate 8.4% IV 100 MEQ in D5W 1000 ML BAG IV SCH ×4 (04:58→22:08)
[2023-01-16] MEDS: NS 0.9% IVPB SCH ×4 (05:35→23:50)
[2023-01-16] MEDS: LEUCOVORIN CALCIUM IVPB SCH ×4 (05:35→23:50)
[2023-01-16 06:55] LABS: Hematocrit 27.7 % (38-53); Hemoglobin 10.1 g/dL (13.2-16.3); Mean Corpuscular Hemoglobin 33.4 pg (27-33); Mean Corpuscular Hgb Conc 36.4 g/dL (31-36); Platelet Count 106 10^3/uL (150-450); Red Blood Count 3.01 10^6/uL (4.06-5.63); Red Cell Distribution Width 14.1 % (12-17)
[2023-01-16 07:14] LABS: Albumin 3.1 g/dL (3.2-5.2); Albumin/Globulin Ratio 2.1 (1-3); Calcium 7.9 mg/dL (8.6-10.3); Creatinine, Serum 0.91 mg/dL (0.67-1.17); Globulin 1.5 g/dL (2-4); Potassium 3.6 mmol/L (3.5-5.0); Total Bilirubin 0.7 mg/dL (0.2-1.0); Total Protein 4.6 g/dL (6.4-8.9); eGFR CKD-EPI 87.9 (>60)
[2023-01-16 08:25] LABS: ABS Lymphocytes 0.3 10^3/uL (1.0-4.8); ABS Neutrophils 0.6 10^3/uL (1.5-7.6); Lymphocyte % 32.3 %; Nucleated Red Blood Cells % 0.1 /100 WBC (0.0-0.4)
[2023-01-16] MEDS: Polyethylene Glycol 3350 17 GM PACKET PO SCH (08:35)
[2023-01-16] MEDS: Potassium Chlor 20 meq TAB.ER PO SCH (10:11)
[2023-01-16] MEDS: Senna TAB 8.6 mg TAB PO PRN (10:11)
[2023-01-16] MEDS: Magnesium Hydroxide LIQ 30 ML UDC PO PRN (10:12)
[2023-01-16] MEDS: Enoxaparin 40 MG/0.4 ML SYR SUBCUT SCH (22:09)
[2023-01-17] MEDS: Sodium Bicarbonate 8.4% IV 100 MEQ in D5W 1000 ML BAG IV SCH ×2 (06:14→14:11)
[2023-01-17] MEDS: NS 0.9% IVPB SCH ×3 (06:15→19:24)
[2023-01-17] MEDS: LEUCOVORIN CALCIUM IVPB SCH ×3 (06:15→19:24)
[2023-01-17 06:23] LABS: Albumin 3.5 g/dL (3.2-5.2); Albumin/Globulin Ratio 1.8 (1-3); Calcium 8.6 mg/dL (8.6-10.3); Creatinine, Serum 0.93 mg/dL (0.67-1.17); Globulin 1.9 g/dL (2-4); Potassium 3.7 mmol/L (3.5-5.0); Total Bilirubin 0.7 mg/dL (0.2-1.0); Total Protein 5.4 g/dL (6.4-8.9); eGFR CKD-EPI 85.6 (>60)
[2023-01-17 07:15] LABS: Hematocrit 30.7 % (38-53); Hemoglobin 10.8 g/dL (13.2-16.3); Mean Corpuscular Hemoglobin 32.8 pg (27-33); Mean Corpuscular Hgb Conc 35.3 g/dL (31-36); Mean Corpuscular Volume 93.1 fL (80-97); Mean Platelet Volume 7.9 fL (7.5-11.2); Platelet Count 101 10^3/uL (150-450); Red Blood Count 3.29 10^6/uL (4.06-5.63); Red Cell Distribution Width 14.1 % (12-17)
[2023-01-17 08:19] LABS: ABS Lymphocytes 0.3 10^3/uL (1.0-4.8); ABS Monocytes 0.1 10^3/uL (0.0-1.1); ABS Neutrophils 0.6 10^3/uL (1.5-7.6); Eosinophil % 0.5 %; Lymphocyte % 34.7 %; Nucleated Red Blood Cells % 0.2 /100 WBC (0.0-0.4)
[2023-01-17] MEDS: Polyethylene Glycol 3350 17 GM PACKET PO SCH (10:06)
[2023-01-17] MEDS: Potassium Chlor 20 meq TAB.ER PO SCH (10:06)
[2023-01-17] MEDS: Lidocaine 2% JELLY 6 ML Topical TOPICAL PRN (12:08)
[2023-01-17] MEDS: Enoxaparin 40 MG/0.4 ML SYR SUBCUT SCH (21:34)
[2023-01-18] MEDS: Sodium Bicarbonate 8.4% IV 100 MEQ in D5W 1000 ML BAG IV SCH ×4 (00:39→16:21)
[2023-01-18] MEDS: LEUCOVORIN CALCIUM IVPB SCH ×3 (00:40→11:16)
[2023-01-18] MEDS: NS 0.9% IVPB SCH ×3 (00:40→11:16)
[2023-01-18 02:58] LABS: Urine Appearance Turbid; Urine Bilirubin Negative (Negative); Urine Blood 1+ (Negative); Urine Color Yellow; Urine Glucose Negative (Negative); Urine Ketones Negative (Negative); Urine Nitrite Negative (Negative); Urine Protein 3+(>=500 mg/dL) (Negative); Urine Specific Gravity 1.011 (1.002-1.030); Urine Urobilinogen Negative (Negative)
[2023-01-18] MEDS ORDERED: Cefepime 2 GM in Dextrose 2 GM/50 ML BAG IV SCH (03:00)
[2023-01-18 03:01] LABS: Urine Amorphous Crystals Present (Absent); Urine Bacteria 1+ (Absent); Urine Red Blood Cell 3+(>10/hpf) (Absent); Urine White Blood Cell 3+(>20/hpf) (Absent); Urine Yeast Present (Absent)
[2023-01-18] MEDS: Cefepime 2 GM in Dextrose 2 GM/50 ML BAG IV SCH ×3 (03:19→18:12)
[2023-01-18 03:28] LABS: Hematocrit 27.6 % (38-53); Hemoglobin 10.1 g/dL (13.2-16.3); Mean Corpuscular Hemoglobin 33.4 pg (27-33); Mean Corpuscular Hgb Conc 36.4 g/dL (31-36); Mean Corpuscular Volume 91.7 fL (80-97); Mean Platelet Volume 7.9 fL (7.5-11.2); Platelet Count 82 10^3/uL (150-450); Red Blood Count 3.01 10^6/uL (4.06-5.63); Red Cell Distribution Width 14.3 % (12-17); White Blood Count 1.2 10^3/uL (3.6-10.2)
[2023-01-18 03:40] LABS: Albumin 3.2 g/dL (3.2-5.2); Albumin/Globulin Ratio 1.7 (1-3); C Reactive Protein 133.45 mg/L (<8.01); Calcium 8.3 mg/dL (8.6-10.3); Creatinine, Serum 0.94 mg/dL (0.67-1.17); Globulin 1.9 g/dL (2-4); Potassium 3.7 mmol/L (3.5-5.0); Total Bilirubin 0.8 mg/dL (0.2-1.0); Total Protein 5.1 g/dL (6.4-8.9); eGFR CKD-EPI 84.5 (>60)
[2023-01-18 04:13] LABS: ABS Lymphocytes 0.3 10^3/uL (1.0-4.8); ABS Monocytes 0.1 10^3/uL (0.0-1.1); ABS Neutrophils 0.8 10^3/uL (1.5-7.6); Eosinophil % 0.2 %; Nucleated Red Blood Cells % 0.1 /100 WBC (0.0-0.4)
[2023-01-18 04:32] LABS: Erythrocyte Sed Rate 44 mm/Hr (0-19)
[2023-01-18 08:34] LABS: Hematocrit 26.7 % (38-53); Hemoglobin 9.5 g/dL (13.2-16.3); Mean Corpuscular Hemoglobin 33.1 pg (27-33); Mean Corpuscular Hgb Conc 35.7 g/dL (31-36); Mean Corpuscular Volume 92.6 fL (80-97); Mean Platelet Volume 7.9 fL (7.5-11.2); Platelet Count 77 10^3/uL (150-450); Red Blood Count 2.88 10^6/uL (4.06-5.63); Red Cell Distribution Width 14.2 % (12-17); White Blood Count 1.2 10^3/uL (3.6-10.2)
[2023-01-18 08:50] LABS: Albumin/Globulin Ratio 1.6 (1-3); Calcium 8.3 mg/dL (8.6-10.3); Creatinine, Serum 0.92 mg/dL (0.67-1.17); Globulin 1.9 g/dL (2-4); Potassium 3.6 mmol/L (3.5-5.0); Total Bilirubin 0.7 mg/dL (0.2-1.0); Total Protein 4.9 g/dL (6.4-8.9); eGFR CKD-EPI 86.7 (>60)
[2023-01-18] MEDS: Potassium Chlor 20 meq TAB.ER PO SCH (08:51)
[2023-01-18] MEDS: Polyethylene Glycol 3350 17 GM PACKET PO SCH (08:51)
[2023-01-18] MEDS ORDERED: Filgrastim* 480 MCG VIAL (AUTOSUB = ZARXIO*) SUBCUT SCH (09:00)
[2023-01-18 09:35] LABS: RBC Morphology Normal (Normal)
[2023-01-18 09:36] LABS: ABS Lymphocytes 0.2 10^3/ul (1.0-4.8); ABS Monocytes 0.1 10^3/ul (0-0.8); ABS Neutrophils 0.9 10^3/uL (1.5-7.6)
[2023-01-18 09:37] LABS: Eosinophil % 0.4 %; Lymphocyte % 23.2 %; Nucleated Red Blood Cells % 0.1 /100 WBC (0.0-0.4)
[2023-01-18] MEDS: Enoxaparin 40 MG/0.4 ML SYR SUBCUT SCH (20:25)
[2023-01-19] MEDS: Cefepime 2 GM in Dextrose 2 GM/50 ML BAG IV SCH ×3 (02:59→18:36)
[2023-01-19] MEDS: Polyethylene Glycol 3350 17 GM PACKET PO SCH (08:21)
[2023-01-19] MEDS: Potassium Chlor 20 meq TAB.ER PO SCH (08:21)
[2023-01-19 11:18] LABS: Hematocrit 26.4 % (38-53); Hemoglobin 9.4 g/dL (13.2-16.3); Mean Corpuscular Hemoglobin 32.8 pg (27-33); Mean Corpuscular Hgb Conc 35.8 g/dL (31-36); Mean Corpuscular Volume 91.5 fL (80-97); Mean Platelet Volume 8.5 fL (7.5-11.2); Platelet Count 67 10^3/uL (150-450); Red Blood Count 2.88 10^6/uL (4.06-5.63); White Blood Count 2.1 10^3/uL (3.6-10.2)
[2023-01-19 13:31] LABS: Tear Drop Cells 1+
[2023-01-19 13:32] LABS: ABS Lymphocytes 0.5 10^3/uL (1.0-4.8); ABS Monocytes 0.2 10^3/uL (0.0-1.1); ABS Neutrophils 1.4 10^3/uL (1.5-7.6); ABS Nucleated RBC 0.01 10^3/ul
[2023-01-19 13:33] LABS: Eosinophil % 0.4 %; Lymphocyte % 22.1 %; Nucleated Red Blood Cells % 0.3 /100 WBC (0.0-0.4)
[2023-01-19] MEDS: Enoxaparin 40 MG/0.4 ML SYR SUBCUT SCH (21:39)
[2023-01-20] MEDS: Cefepime 2 GM in Dextrose 2 GM/50 ML BAG IV SCH ×3 (02:59→19:22)
[2023-01-20] MEDS: Polyethylene Glycol 3350 17 GM PACKET PO SCH (08:26)
[2023-01-20] MEDS: Potassium Chlor 20 meq TAB.ER PO SCH (08:27)
[2023-01-20 11:25] LABS: Hematocrit 27.6 % (38-53); Hemoglobin 9.9 g/dL (13.2-16.3); Mean Corpuscular Hgb Conc 35.9 g/dL (31-36); Mean Corpuscular Volume 91.9 fL (80-97); Mean Platelet Volume 8.1 fL (7.5-11.2); Platelet Count 61 10^3/uL (150-450); Red Blood Count 3.01 10^6/uL (4.06-5.63); Red Cell Distribution Width 14.2 % (12-17); White Blood Count 2.6 10^3/uL (3.6-10.2)
[2023-01-20 11:33] LABS: Calcium 8.6 mg/dL (8.6-10.3); Magnesium 1.7 mg/dL (1.9-2.7); Potassium 3.8 mmol/L (3.5-5.0)
[2023-01-20 11:39] LABS: Creatinine, Serum 0.9 mg/dL (0.67-1.17); eGFR CKD-EPI 89.1 (>60)
[2023-01-20] MEDS ORDERED: Ondansetron 4 mg VIAL 2 MG/ML 2 ml VIAL IV PRN (11:59)
[2023-01-20] MEDS: Enoxaparin 40 MG/0.4 ML SYR SUBCUT SCH (20:50)
[2023-01-21] MEDS: Cefepime 2 GM in Dextrose 2 GM/50 ML BAG IV SCH ×3 (02:53→20:26)
[2023-01-21] MEDS: Polyethylene Glycol 3350 17 GM PACKET PO SCH (09:56)
[2023-01-21] MEDS: Potassium Chlor 20 meq TAB.ER PO SCH (09:57)
[2023-01-21] MEDS: Enoxaparin 40 MG/0.4 ML SYR SUBCUT SCH (20:27)
[2023-01-22] MEDS: Cefepime 2 GM in Dextrose 2 GM/50 ML BAG IV SCH ×2 (02:48→10:56)
[2023-01-22] MEDS: Potassium Chlor 20 meq TAB.ER PO SCH (08:01)
[2023-01-22] MEDS: Polyethylene Glycol 3350 17 GM PACKET PO SCH (08:02)
[2023-01-22 10:11] LABS: Hematocrit 32.6 % (38-53); Hemoglobin 11.4 g/dL (13.2-16.3); Mean Corpuscular Hemoglobin 32.3 pg (27-33); Mean Corpuscular Hgb Conc 35.1 g/dL (31-36); Mean Corpuscular Volume 91.9 fL (80-97); Platelet Count 73 10^3/uL (150-450); Red Blood Count 3.55 10^6/uL (4.06-5.63); Red Cell Distribution Width 14.2 % (12-17); White Blood Count 5.9 10^3/uL (3.6-10.2)
[2023-01-22 10:32] VITALS: BP 123/83
[2023-01-22 11:02] LABS: RBC Morphology Normal (Normal); Toxic Granulation 1+
[2023-01-22 11:05] LABS: Dohle Bodies Present
[2023-01-22 11:06] LABS: ABS Lymphocytes 0.7 10^3/uL (1.0-4.8); ABS Monocytes 0.6 10^3/uL (0.0-1.1); ABS Neutrophils 4.5 10^3/uL (1.5-7.6); ABS Nucleated RBC 0.01 10^3/ul; Eosinophil % 0.2 %; Lymphocyte % 12.1 %; Nucleated Red Blood Cells % 0.1 /100 WBC (0.0-0.4)
[2023-01-28] MEDS ORDERED: Sodium Bicarb 8.4% Vial 50 ML 100 MEQ in D5W 1000 ml BAG 1,000 ML IV SCH (14:00)
== END 2023-01-22 13:51 | DRG 840 ==
LOC: CHOA 14:02 → MED 17:15 → SUATTDRO 17:15
PROVIDERS: ADMIT Internal Medicine Hematology & Oncology; ATTEND Internal Medicine

== ENCOUNTER 2023-01-22 13:34 | Inpatient (IN) ==
[2023-01-22] MEDS ORDERED: Senna TAB 8.6 mg TAB PO PRN (16:10)
[2023-01-22] MEDS ORDERED: Magnesium Hydroxide LIQ 30 ML UDC PO PRN (16:10)
[2023-01-22] MEDS: Enoxaparin 40 MG/0.4 ML SYR SUBCUT SCH (20:54)
[2023-01-23] MEDS: Potassium Chlor 20 meq TAB.ER PO SCH (08:15)
[2023-01-23] MEDS: Enoxaparin 40 MG/0.4 ML SYR SUBCUT SCH (20:02)
[2023-01-24 07:01] LABS: Hematocrit 32.1 % (38-53); Hemoglobin 11.3 g/dL (13.2-16.3); Mean Corpuscular Hemoglobin 32.4 pg (27-33); Mean Corpuscular Hgb Conc 35.4 g/dL (31-36); Mean Corpuscular Volume 91.5 fL (80-97); Mean Platelet Volume 9.1 fL (7.5-11.2); Platelet Count 84 10^3/uL (150-450); Red Blood Count 3.51 10^6/uL (4.06-5.63); Red Cell Distribution Width 14.4 % (12-17)
[2023-01-24 07:04] LABS: Albumin 3.6 g/dL (3.2-5.2); Albumin/Globulin Ratio 1.7 (1-3); Calcium 9.2 mg/dL (8.6-10.3); Creatinine, Serum 1.13 mg/dL (0.67-1.17); Globulin 2.1 g/dL (2-4); Potassium 4.2 mmol/L (3.5-5.0); Total Bilirubin 0.6 mg/dL (0.2-1.0); Total Protein 5.7 g/dL (6.4-8.9); eGFR CKD-EPI 67.8 (>60)
[2023-01-24] MEDS: Potassium Chlor 20 meq TAB.ER PO SCH (08:31)
[2023-01-24 08:45] LABS: ABS Lymphocytes 1.1 10^3/uL (1.0-4.8); ABS Monocytes 0.9 10^3/uL (0.0-1.1); ABS Neutrophils 14.9 10^3/uL (1.5-7.6); Lymphocyte % 6.5 %; Polychromasia 1+
[2023-01-24] MEDS: Enoxaparin 40 MG/0.4 ML SYR SUBCUT SCH (20:49)
[2023-01-25] MEDS: Potassium Chlor 20 meq TAB.ER PO SCH (09:34)
[2023-01-25] MEDS ORDERED: Iohexol 300 (CONTRAST) 10 ML SDV IV ONE (12:13)
[2023-01-25] MEDS: Enoxaparin 40 MG/0.4 ML SYR SUBCUT SCH (20:31)
[2023-01-26] MEDS: Potassium Chlor 20 meq TAB.ER PO SCH (08:40)
[2023-01-26] MEDS: Lidocaine PATCH 5% PATCH TRANSDERM SCH (13:11)
[2023-01-26] MEDS: Enoxaparin 40 MG/0.4 ML SYR SUBCUT SCH (20:57)
[2023-01-27 06:11] VITALS: BP 110/76
[2023-01-27] MEDS: Lidocaine PATCH 5% PATCH TRANSDERM SCH (08:55)
[2023-01-27] MEDS: Potassium Chlor 20 meq TAB.ER PO SCH (08:56)
[2023-01-27] MEDS ORDERED: Gadoteridol (CONTRAST) 279.3 MG/ML 10 ML IV ONE (14:05)
[2023-01-28] MEDS ORDERED: Sodium Bicarb 650 mg (ANTACID) TAB PO SCH (07:00)
== END 2023-01-27 14:33 | disposition short-term general hospital (02) | DRG 74 ==
LOC: PMRU 14:13 → UNDODISIN 01-27 11:05
PROVIDERS: ADMIT Physical Medicine & Rehabilitation; ATTEND Physical Medicine & Rehabilitation

== ENCOUNTER 2023-01-27 12:13 | Inpatient (IN) ==
[2023-01-27] MEDS ORDERED: Gadoteridol (CONTRAST) 279.3 MG/ML 10 ML IV ONE (15:00)
[2023-01-27] MEDS: Enoxaparin 40 MG/0.4 ML SYR SUBCUT SCH (15:43)
[2023-01-28] MEDS ORDERED: Polyethylene Glycol 3350 17 GM PACKET PO PRN (08:15)
[2023-01-28 08:17] LABS: Hemoglobin 10.8 g/dL (13.2-16.3); Mean Corpuscular Hemoglobin 33.2 pg (27-33); Mean Corpuscular Hgb Conc 35.9 g/dL (31-36); Mean Corpuscular Volume 92.3 fL (80-97); Mean Platelet Volume 8.6 fL (7.5-11.2); Platelet Count 107 10^3/uL (150-450); Red Blood Count 3.25 10^6/uL (4.06-5.63); Red Cell Distribution Width 14.8 % (12-17); White Blood Count 6.3 10^3/uL (3.6-10.2)
[2023-01-28 08:41] LABS: Calcium 8.7 mg/dL (8.6-10.3); Creatinine, Serum 0.8 mg/dL (0.67-1.17); Magnesium 1.8 mg/dL (1.9-2.7); Potassium 4.1 mmol/L (3.5-5.0); eGFR CKD-EPI 92.3 (>60)
[2023-01-28 09:16] LABS: ABS Lymphocytes 0.7 10^3/uL (1.0-4.8); ABS Monocytes 0.3 10^3/uL (0.0-1.1); ABS Neutrophils 5.3 10^3/uL (1.5-7.6); Lymphocyte % 11.4 %; Nucleated Red Blood Cells % 0.1 /100 WBC (0.0-0.4)
[2023-01-28] MEDS: Polyethylene Glycol 3350 17 GM PACKET PO SCH (10:04)
[2023-01-28] MEDS: Potassium Chlor 20 meq TAB.ER PO SCH (10:05)
[2023-01-28] MEDS: Sodium Bicarb 650 mg (ANTACID) TAB PO SCH ×3 (10:06→18:04)
[2023-01-28] MEDS: Lidocaine PATCH 5% PATCH TRANSDERM SCH (10:07)
[2023-01-28] MEDS: Enoxaparin 40 MG/0.4 ML SYR SUBCUT SCH (12:58)
[2023-01-29] MEDS: Sodium Bicarb 650 mg (ANTACID) TAB PO SCH ×4 (02:03→18:15)
[2023-01-29] MEDS: Potassium Chlor 20 meq TAB.ER PO SCH (09:09)
[2023-01-29] MEDS: Lidocaine PATCH 5% PATCH TRANSDERM SCH (09:10)
[2023-01-29] MEDS: Polyethylene Glycol 3350 17 GM PACKET PO SCH (09:10)
[2023-01-29] MEDS: Enoxaparin 40 MG/0.4 ML SYR SUBCUT SCH (14:52)
[2023-01-29] MEDS ORDERED: Senna TAB 8.6 mg TAB PO PRN (15:43)
[2023-01-30] MEDS: Sodium Bicarb 650 mg (ANTACID) TAB PO SCH ×5 (00:10→18:01)
[2023-01-30] MEDS: Potassium Chlor 20 meq TAB.ER PO SCH (09:02)
[2023-01-30] MEDS: Lidocaine PATCH 5% PATCH TRANSDERM SCH (09:05)
[2023-01-30] MEDS: Polyethylene Glycol 3350 17 GM PACKET PO SCH (11:18)
[2023-01-30] MEDS: Enoxaparin 40 MG/0.4 ML SYR SUBCUT SCH (12:15)
[2023-01-31] MEDS: Sodium Bicarb 650 mg (ANTACID) TAB PO SCH ×5 (00:22→22:32)
[2023-01-31] MEDS: Polyethylene Glycol 3350 17 GM PACKET PO SCH (09:06)
[2023-01-31] MEDS: Potassium Chlor 20 meq TAB.ER PO SCH (09:07)
[2023-01-31] MEDS: Lidocaine PATCH 5% PATCH TRANSDERM SCH (10:59)
[2023-01-31] MEDS: Enoxaparin 40 MG/0.4 ML SYR SUBCUT SCH (13:48)
[2023-02-01] MEDS: Sodium Bicarb 650 mg (ANTACID) TAB PO SCH ×3 (07:02→17:15)
[2023-02-01] MEDS: Potassium Chlor 20 meq TAB.ER PO SCH (08:43)
[2023-02-01] MEDS: Polyethylene Glycol 3350 17 GM PACKET PO SCH (08:44)
[2023-02-01] MEDS: Lidocaine PATCH 5% PATCH TRANSDERM SCH (08:45)
[2023-02-01] MEDS: Enoxaparin 40 MG/0.4 ML SYR SUBCUT SCH (12:51)
[2023-02-02] MEDS: Sodium Bicarb 650 mg (ANTACID) TAB PO SCH ×3 (01:31→10:55)
[2023-02-02] MEDS: Polyethylene Glycol 3350 17 GM PACKET PO SCH (09:57)
[2023-02-02] MEDS: Potassium Chlor 20 meq TAB.ER PO SCH (10:55)
[2023-02-02] MEDS: Lidocaine PATCH 5% PATCH TRANSDERM SCH (10:56)
[2023-02-02] MEDS: Enoxaparin 40 MG/0.4 ML SYR SUBCUT SCH (12:15)
[2023-02-03 05:19] VITALS: BP 103/65
[2023-02-03] MEDS: Polyethylene Glycol 3350 17 GM PACKET PO SCH (09:56)
[2023-02-03] MEDS: Potassium Chlor 20 meq TAB.ER PO SCH (09:58)
[2023-02-03] MEDS: Lidocaine PATCH 5% PATCH TRANSDERM SCH (10:00)
== END 2023-02-03 11:20 | disposition home or self-care (01) | DRG 841 ==
LOC: SUATTDRO 14:44 → SSU 14:44 → MED 01-30 18:52
PROVIDERS: ADMIT Internal Medicine; ATTEND Hospitalist